=== PATIENT | female | born 1955 | race Caucasian/White ===

== ENCOUNTER 2017-08-03 19:35 | Inpatient (IN) | payer OTHER, MEDICARE ==
[~2017-08-03] VITALS: Ht 167.6 cm; Wt 123.4 kg
[~2017-08-03 19:35] MED LIST: AMLO5TAB96 PO; ASCO500C PO; ASPI325T PO; ATOR20TA42 PO; COZA100T PO; ERGO2000 PO; HUMULIN 70/30 SC; NOVORP2; PERC5TAB12 PO; TAB-TAB PO; TOPR25TA2 PO; [UNRECOGNIZED DRUG - CODE] XX
[2017-08-03 19:50] VITALS: O2SAT 94
[2017-08-03 20:06] VITALS: BP 151/70; PULSE 107; RESP 16; TEMP 98.4; O2SAT 94
[2017-08-03 20:25] LABS: AUTOMATED NEUTROPHIL # 8.6 TH/MM3 (1.8-7.7); BASOPHIL # 0.1 TH/MM3 (0-0.2); EOSINOPHIL # 0.2 TH/MM3 (0-0.4); EOSINOPHIL % 1.7 % (0.0-4.0); HEMATOCRIT 28.3 % (35.0-46.0); HEMOGLOBIN 8.9 GM/DL (11.6-15.3); LYMPH % 12.5 % (9.0-44.0); LYMPHOCYTE # 1.4 TH/MM3 (1.0-4.8); MEAN CELL VOLUME 81.6 FL (80.0-100.0); MEAN CORPUSCULAR HEMOGLOBIN 25.8 PG (27.0-34.0); MEAN CORPUSCULAR HGB CONC 31.6 % (32.0-36.0); MEAN PLATELET VOLUME 7.2 FL (7.0-11.0); MONO % 10.5 % (0.0-8.0); MONOCYTE # 1.2 TH/MM3 (0-0.9); NEUT % 74.3 % (16.0-70.0); PLATELET COUNT 417 TH/MM3 (150-450); RED BLOOD COUNT 3.47 MIL/MM3 (4.00-5.30); RED CELL DISTRIBUTION WIDTH 18.1 % (11.6-17.2); WHITE BLOOD COUNT 11.5 TH/MM3 (4.0-11.0)
[2017-08-03] MEDS ORDERED: SODIUM CHLOR 0.9% 1000 ML INJ 1,000 ML IV SCH (20:27)
[2017-08-03 20:37] LABS: ALBUMIN 2.1 GM/DL (3.4-5.0); AST (GOT) 21 U/L (15-37); BICARBONATE 28.8 MEQ/L (21.0-32.0); BLOOD UREA NITROGEN 38 MG/DL (7-18); CALCIUM 8.9 MG/DL (8.5-10.1); CHLORIDE 94 MEQ/L (98-107); CREATININE 1.92 MG/DL (0.50-1.00); GLOMERULAR FILTRATION RATE 26 ML/MIN (>89); GLUCOSE,RANDOM 219 MG/DL (74-106); LIPASE 77 U/L (73-393); MAGNESIUM 2.4 MG/DL (1.5-2.5); SODIUM (NA) 131 MEQ/L (136-145)
[2017-08-03 20:38] LABS: ALT (GPT) 22 U/L (10-53)
[2017-08-03 20:40] LABS: LACTIC ACID SEPSIS PROTOCOL 2.1 mmol/L (0.4-2.0); PROTHROMBIN TIME - PATIENT 11.4 SEC (9.8-11.6)
[2017-08-03 20:42] LABS: ALKALINE PHOSPHATASE 136 U/L (45-117); TOTAL BILIRUBIN ADULT 0.5 MG/DL (0.2-1.0); TOTAL PROTEIN 7.5 GM/DL (6.4-8.2); TROPONIN I LESS THAN 0.02 NG/ML (0.02-0.05)
--- NOTE | 2017-08-03 20:49 | RADRPT ---
EXAM DATE/TIME: 08/03/2017 20:00 [facility] COMPARISON: No previous studies available for comparison. INDICATIONS : Trauma, fall. Bruising to right eye. RADIATION DOSE: 56.35 CTDIvol (mGy) MEDICAL HISTORY : Hypertension. CAD. Diabetes. SURGICAL HISTORY : CABG Tubal ligation.Cholecystectomy.C-spine surgery. ENCOUNTER: Initial ACUITY: 1 day PAIN SCALE: 4/10 LOCATION: cranial TECHNIQUE: Multiple contiguous axial images were obtained of the head. Using automated exposure control and adj ustment of the mA and/or kV according to patient size, radiation dose was kept as low as reasonably a chievable to obtain optimal diagnostic quality images. DICOM format image data is available electro nically for review and comparison. FINDINGS: Frontal scalp swelling. No intracranial hemorrhage or mass effect a remote lacunar infarct right fron cheryl region. No acute bony abnormality. CONCLUSION: 1. Right frontal scalp swelling. No acute intracranial abnormality. Remote lacunar infarct on the rig ht. Manuel Carmichael MD on August 03, 2017 at 20:47 Board Certified Radiologist. This report was verified electronically.
[2017-08-03 21:00] VITALS: BP 143/61; PULSE 105; RESP 16; O2SAT 91
--- NOTE | 2017-08-03 21:07 | RADRPT ---
EXAM DATE/TIME: 08/03/2017 21:11 [facility] COMPARISON: No previous studies available for comparison. INDICATIONS : Fever. MEDICAL HISTORY : Hypertension. Diabetes mellitus type II. CAD SURGICAL HISTORY : CABG. Tubal ligation. Cholecystectomy. ENCOUNTER: Initial ACUITY: 1 day PAIN SCORE: 0/10 LOCATION: Bilateral chest FINDINGS: A single view of the chest demonstrates a left PICC line superior vena cava. Previous median sternoto my. Minimal basilar atelectasis. No effusion. No pneumothorax. CONCLUSION: 1. Left PICC line superior vena cava. Minimal subsegmental basilar opacity most characteristic of ate lectasis. Manuel Carmichael MD on August 03, 2017 at 21:03 Board Certified Radiologist. This report was verified electronically.
--- NOTE | 2017-08-03 21:43 | PD ---
HPI Chief Complaint: Altered Mental Status Time Seen by Provider: 19:48 Travel History International Travel<30 days: No Contact w/Intl Traveler<30days: No Traveled to known affect area: No History of Present Illness HPI 62-year-old female that presents to the ED for evaluation of altered mental status. Patient was brought here by ambulance for evaluation of this. Patient has a history of infection to both lower legs. Patient was sent to rehabilitation facility to get IV antibiotics as well as to do wound care. Since Friday per report from the ambulance as well as rehabilitation facility she's been somewhat altered. She does have a history of psychiatric illness and per rehabilitation she had an ultrasound that was negative for blood clots. She has become somewhat aggressive towards staff and confused. She has been receiving her antibiotics for her wounds appear to not improved. She actually has gotten more swollen per report. She denies any chest pain or shortness of breath. She states having pain to her lower legs. She does have a history of CAD and fibromyalgia. Per patient her discomfort currently is 8 out of 10. She tells me that she was initially seen at [facility] in [facility]. She was sent to rehabilitation after being discharged. She cannot really tell me how long she was at the hospital. She tells me that she's been in the rehabilitation for about a week now. Patient herself appears to be alert and oriented 4 and does appear to answer questions appropriately. She does have a history of MRSA to the wounds for which she is getting vancomycin through a PICC line that she has on the left arm. Per report from the rehabilitation facility she's had fevers as high as 104 PFSH Past Medical History High Cholesterol: Yes Chest Pain: Yes Coronary Artery Disease: Yes Diabetes: Yes Patient Takes Glucophage: No Hypertension: Yes Musculoskeletal: Yes (CHRONIC BACK PAIN) Tetanus Vaccination: Unknown Influenza Vaccination: No Menopausal: Yes Tubal Ligation: Yes Past Surgical History Cholecystectomy: Yes Coronary Artery Bypass Graft: Yes Social History Alcohol Use: No Tobacco Use: No Substance Use: No Allergies-Medications (Allergen,Severity, Reaction): Coded Allergies: Sulfa (Sulfonamide Antibiotics) (Unverified Allergy, Severe, Hives, ) ciprofloxacin (Unverified Allergy, Severe, Nausea/Vomiting, 08/03/17) vancomycin (Unverified Allergy, Severe, Hives, 08/03/17) Reported Meds & Prescriptions Reported Meds & Active Scripts Active Reported Zinc Sulfate Pow 1 XX Vitamin D2 (Ergocalciferol) 2,000 Unit Tab 2,000 Unit PO Vitamin C (Ascorbic Acid) 500 Mg Cap 500 Mg PO Multivitamin (Multivitamins) 1 Tab Tab 1 Tab PO DAILY Novolin R 100 Units/Ml (Insulin Human Regular) 100 Units/Ml Inj 1,000 Units .XX Percocet (Oxycodone/Acetaminophen) 5 Mg/325 Mg Tab 1 Tab PO Q4HPRN Cozaar (Losartan Potassium) 100 Mg Tab 100 Mg PO DAILY [Humulin 70/30] 90 SC BIDAC Toprol Xl (Metoprolol Succinate) 25 Mg Tabcr 25 Mg PO BID Lipitor (Atorvastatin Calcium) 20 Mg Tab 20 Mg PO HS Aspirin 325 Mg Tab 325 Mg PO DAILY Norvasc (Amlodipine Besylate) 5 Mg Tab 5 Mg PO DAILY Review of Systems Except as stated in HPI: all other systems reviewed are Neg Physical Exam Narrative GENERAL: SKIN: Warm and dry. HEAD: Atraumatic. Normocephalic. EYES: Pupils equal and round. No scleral icterus. No injection or drainage. ENT: No nasal bleeding or discharge. Mucous membranes pink and moist. Tongue is midline. No uvula deviation. NECK: Trachea midline. No JVD. CARDIOVASCULAR: Regular rate and rhythm. No murmurs, S3, S4. RESPIRATORY: No accessory muscle use. Clear to auscultation. Breath sounds equal bilaterally. GASTROINTESTINAL: Abdomen soft, non-tender, nondistended. Hepatic and splenic margins not palpable. MUSCULOSKELETAL: Extremities without clubbing, cyanosis, or edema. No obvious deformities. Full range of motion of the upper and lower extremities bilaterally. 2+ pulses bilaterally. She does 2+ pitting edema bilaterally. Patient has erythema noted on both lower legs. Patient does have wants to the right anterior mid tib-fib film with some purulence coming out of it as well as another one on the dorsal aspect of the left foot. Patient does have some blistering some of the fingers. He does appear to have good capillary refill. Very warm to touch in the legs. No obvious lymphadenopathy noted. NEUROLOGICAL: Awake and alert. No obvious cranial nerve deficits. Motor grossly within normal limits. Five out of 5 muscle strength in the arms and legs. Normal speech. PSYCHIATRIC: Appropriate mood and affect; insight and judgment normal. Data Data Last Documented VS Vital Signs Date Time Temp Pulse Resp B/P (MAP) Pulse Ox O2 Delivery O2 Flow Rate FiO2 08/03/17 21:00 105 16 143/61 (88) 91 Room Air 08/03/17 20:06 98.4 Orders Orders Electrocardiogram (08/03/17 19:48) Complete Blood Count With Diff (08/03/17 19:48) Comprehensive Metabolic Panel (08/03/17 19:48) Ckmb (Isoenzyme) Profile (08/03/17 19:48) Troponin I (08/03/17 19:48) Prothrombin Time / Inr (Pt) (08/03/17 19:48) Act Partial Throm Time (Ptt) (08/03/17 19:48) Blood Culture (08/03/17:48) Lipase (08/03/17 19:48) Urinalysis - C+S If Indicated (08/03/17 19:48) Cath For Specimen (08/03/17 19:48) Magnesium (Mg) (08/03/17 19:48) Chest, Single Ap (08/03/17 19:48) Ct Brain W/O Iv Contrast(Rout) (08/03/17 19:48) Iv Access Insert/Monitor (08/03/17 19:48) Ecg Monitoring (08/03/17 19:48) Oximetry (08/03/17 19:48) Lactic Acid Sepsis Protocol (08/03/17 20:03) Ammonia (08/03/17 20:03) Sodium Chlor 0.9% 1000 Ml Inj (Ns 1000 M (08/03/17 20:27) Admit Order (Ed Use Only) (08/03/17 22:32) Labs Laboratory Tests Test 08/03/17 20:00 White Blood Count 11.5 TH/MM3 Red Blood Count 3.47 MIL/MM3 Hemoglobin 8.9 GM/DL Hematocrit 28.3 % Mean Corpuscular Volume 81.6 FL Mean Corpuscular Hemoglobin 25.8 PG Mean Corpuscular Hemoglobin Concent 31.6 % Red Cell Distribution Width 18.1 % Platelet Count 417 TH/MM3 Mean Platelet Volume 7.2 FL Neutrophils (%) (Auto) 74.3 % Lymphocytes (%) (Auto) 12.5 % Monocytes (%) (Auto) 10.5 % Eosinophils (%) (Auto) 1.7 % Basophils (%) (Auto) 1.0 % Neutrophils # (Auto) 8.6 TH/MM3 Lymphocytes # (Auto) 1.4 TH/MM3 Monocytes # (Auto) 1.2 TH/MM3 Eosinophils # (Auto) 0.2 TH/MM3 Basophils # (Auto) 0.1 TH/MM3 CBC Comment DIFF FINAL Differential Comment Prothrombin Time 11.4 SEC Prothromb Time International Ratio 1.0 RATIO Activated Partial Thromboplast Time 32.7 SEC Blood Urea Nitrogen 38 MG/DL Creatinine 1.92 MG/DL Random Glucose 219 MG/DL Total Protein 7.5 GM/DL Albumin 2.1 GM/DL Calcium Level 8.9 MG/DL Magnesium Level 2.4 MG/DL Alkaline Phosphatase 136 U/L Aspartate Amino Transf (AST/SGOT) 21 U/L Alanine Aminotransferase (ALT/SGPT) 22 U/L Total Bilirubin 0.5 MG/DL Sodium Level 131 MEQ/L Potassium Level 4.6 MEQ/L Chloride Level 94 MEQ/L Carbon Dioxide Level 28.8 MEQ/L Anion Gap 8 MEQ/L Estimat Glomerular Filtration Rate 26 ML/MIN Lactic Acid Level 2.1 mmol/L Ammonia 15 MCMOL/L Total Creatine Kinase 35 U/L Troponin I LESS THAN 0.02 NG/ML Lipase 77 U/L MDM Medical Decision Making Medical Screen Exam Complete: Yes Emergency Medical Condition: Yes Medical Record Reviewed: Yes Interpretation(s) CBC & BMP Diagram 08/03/17 20:00 Total Protein 7.5, Albumin 2.1 L, Calcium Level 8.9, Magnesium Level 2.4, Alkaline Phosphatase 136 H, Aspartate Amino Transf (AST/SGOT) 21, Alanine Aminotransferase (ALT/SGPT) 22, Total Bilirubin 0.[address] 08/03/171947 Signed Impressions: Service Date/Time: Thursday, August 03, 2017 20:00 - CONCLUSION: 1. Right frontal scalp swelling. No acute intracranial abnormality. Remote lacunar infarct on the right. Manuel Carmichael MD Chest X-Ray 08/03/171947 Signed Impressions: Service Date/Time: Thursday, August 03, 2017 21:11 - CONCLUSION: 1. Left PICC line superior vena cava. Minimal subsegmental basilar opacity most characteristic of atelectasis. Manuel Carmichael MD lactic acid of 2.1 Coags WNL Differential Diagnosis Sepsis versus cellulitis versus altered mental status versus worsening infection versus medication side effect Narrative Course 62-year-old female that presents to the ED for evaluation of altered mental status. Patient was properly examined and was found to have signs and symptoms concerning for sepsis. Patient does appear to be slightly confused but she does answer all questions appropriately. She is unable to tell me most of her history. She is somewhat unhappy with being here. She denies any other medical issues. She does have bruises to her right eye which per patient happened on Friday when she had a fall at the rehabilitation facility. She states that she had a scan of her head but there is no records on this. Rehabilitation facility did send some records that showed that she had an ultrasound that was negative for DVTs. I have asked to get records from the hospital admission. Labs and imaging were ordered. Labs and imaging showed WBC count, lactic acid elevation and possible acute on chronic kidney injury. Patient still somewhat confused. She does appear to be tachycardic. I spoke with my attending Dr. Pak who was made aware of all findings and recommends admission. This was told to Dr. Manrique who agrees to admission. Unfortunately at the time of admission I don't have any of the records from the previous hospitalization from a different hospital. Sepsis Criteria SIRS Criteria (2 or more): Heart rate over 90, WBC > 53239, < 4000 or > 10% bands Sepsis Criteria (SIRS+source): Infect source susp/known Diagnosis Primary Impression: Altered mental status Qualified Codes: R41.82 - Altered mental status, unspecified Additional Impressions: Cellulitis Qualified Codes: L03.119 - Cellulitis of unspecified part of limb MRSA (methicillin resistant staph aureus) culture positive Acute kidney injury Admitting Information Admitting Physician Requests: Observation Abundio Klein Aug 03, 2017 21:43
--- NOTE | 2017-08-03 22:36 | HHI.HP ---
[facility] Unknown Admission Diagnosis altered mental status, leg cellulitis, failing treatment? Diagnoses: (1) Encephalopathy Diagnosis: Principal (2) Wound infection Diagnosis: Principal (3) SAQIB (acute kidney injury) Diagnosis: Principal (4) Lactic acidosis Diagnosis: Principal (5) Anemia Diagnosis: Principal (6) DM (diabetes mellitus) Diagnosis: Principal Travel History International Travel<30 Days: No Contact w/Intl Traveler <30 Da: No Traveled to Known Affected Are: No History of Present Illness This is a 62-year-old female with a PMH of HTN, Hyperlipidemia, Chronic Back Pain, CAD and DM who was sent to the ER from SNF secondary to AMS and lateral lower extremity wounds. Per report, patient with recent admission to for bilateral lower extremity wounds, +MRSA wound cultures, on Vanc IV qdaily via PICC line, records from pending. Was d/c'd to Rehab and sent to ER today secondary to increasing confusion and aggressive behavior towards staff. No reported fever or chills. Has been receiving IV Abx as scheduled per report. On arrival, BP 151/70, HR 107, O2 sat 94% on RA, Afebrile. WBC 11.5. Hemoglobin 8.9, previous 11.6 on 08/09/12. INR 1.0. UA with moderate LE, bacteriuria. CT Head with right frontal scalp swelling, no acute finding, remote lacunar infarct on the right. CXR with left PICC line. Vena cava, atelectasis. Review of Systems Except as stated in HPI: all other systems reviewed are Neg ROS: 14 point review of systems otherwise negative. Past Family Social History Past Medical History PMH: HTN, Hyperlipidemia, Chronic Back Pain, CAD and DM Past Surgical History PAST SURGICAL HISTORY: Cholecystectomy, CABG Allergies: Coded Allergies: Sulfa (Sulfonamide Antibiotics) (Unverified Allergy, Severe, Hives, ) ciprofloxacin (Unverified Allergy, Severe, Nausea/Vomiting, 08/03/17) vancomycin (Unverified Allergy, Severe, Hives, 08/03/17) Family History PAST FAMILY HISTORY: Reviewed. No h/o DM or CAD Social History PAST SOCIAL HISTORY: Negative for alcohol, tobacco or drugs. Physical Exam Vital Signs Vital Signs Date Time Temp Pulse Resp B/P (MAP) Pulse Ox O2 Delivery O2 Flow Rate FiO2 08/03/17 21:00 105 16 143/61 (88) 91 Room Air 08/03/17 20:06 98.4 107 16 151/70 (97) 94 08/03/17 19:50 94 Room Air Physical Exam PE: GENERAL: Middle-aged white female in no acute distress, confused. HEENT: PERRLA, EOMI. No scleral icterus or conjunctival pallor. No lid lag or facial droop. CARDIOVASCULAR: Regular rate and rhythm. No obvious murmurs to auscultation. No chest tenderness to palpation. RESPIRATORY: No obvious rhonchi or wheezing. Clear to auscultation. Breath sounds equal bilaterally. GASTROINTESTINAL: Abdomen soft, non-tender, nondistended. BS normal. MUSCULOSKELETAL: Extremities without clubbing, cyanosis. 2+ pitting edema bilaterally. No obvious deformities. Bilateral LE wound w/ surrounding erythema. NEUROLOGICAL: Awake, alert. No focal neurologic deficits. Moving both upper and lower extremities spontaneously. Laboratory Laboratory Tests Test 08/03/17 20:00 White Blood Count 11.5 Red Blood Count 3.47 Hemoglobin 8.9 Hematocrit 28.3 Mean Corpuscular Volume 81.6 Mean Corpuscular Hemoglobin 25.8 Mean Corpuscular Hemoglobin Concent 31.6 Red Cell Distribution Width 18.1 Platelet Count 417 Mean Platelet Volume 7.2 Neutrophils (%) (Auto) 74.3 Lymphocytes (%) (Auto) 12.5 Monocytes (%) (Auto) 10.5 Eosinophils (%) (Auto) 1.7 Basophils (%) (Auto) 1.0 Neutrophils # (Auto) 8.6 Lymphocytes # (Auto) 1.4 Monocytes # (Auto) 1.2 Eosinophils # (Auto) 0.2 Basophils # (Auto) 0.1 CBC Comment DIFF FINAL Differential Comment Prothrombin Time 11.4 Prothromb Time International Ratio 1.0 Activated Partial Thromboplast Time 32.7 Blood Urea Nitrogen 38 Creatinine 1.92 Random Glucose 219 Total Protein 7.5 Albumin 2.1 Calcium Level 8.9 Magnesium Level 2.4 Alkaline Phosphatase 136 Aspartate Amino Transf (AST/SGOT) 21 Alanine Aminotransferase (ALT/SGPT) 22 Total Bilirubin 0.5 Sodium Level 131 Potassium Level 4.6 Chloride Level 94 Carbon Dioxide Level 28.8 Anion Gap 8 Estimat Glomerular Filtration Rate 26 Lactic Acid Level 2.1 Ammonia 15 Total Creatine Kinase 35 Troponin I LESS THAN 0.02 Lipase 77 Date/Time Source Procedure Growth Status 08/03/17 20:40 Blood Peripheral Aerobic Blood Culture Pending Received 08/03/17 20:40 Blood Peripheral Anaerobic Blood Culture Pending Received Result Diagram: 08/03/17199908/03/171999 Caprini VTE Risk Assessment Caprini VTE Risk Assessment: Mod/High Risk (score >= 2) Caprini Risk Assessment Model Point Value = 1 Point Value = 2 Point Value = 3 Point Value = 5 Age 41-60 Minor surgery BMI > 25 kg/m2 Swollen legs Varicose veins or History of unexplained or recurrent spontaneous Oral contraceptives or hormone replacement Sepsis (< 1 month) Serious lung disease, including pneumonia (< 1 month) Abnormal pulmonary function Acute myocardial infarction Congestive heart failure (< 1 month) History of inflammatory bowel disease Medical patient at bed rest Age 61-74 Arthroscopic surgery Major open surgery (> 45 min) Laparoscopic surgery (> 45 min) Malignancy Confined to bed (> 72 hours) Immobilizing plaster cast Central venous access Age >= 75 History of VTE Family history of VTE Factor V Leiden Prothrombin [id number] Lupus anticoagulant Anticardiolipin antibodies Elevated serum homocysteine Heparin-induced thrombocytopenia Other congenital or acquired thrombophilia Stroke (< 1 month) Elective arthroplasty Hip, pelvis, or leg fracture Acute spinal cord injury (< 1 month) Prophylaxis Regimen Total Risk Factor Score Risk Level Prophylaxis Regimen 0-1 Low Early ambulation 2 Moderate Order ONE of the following: *Sequential Compression Device (SCD) *Heparin 5000 units SQ BID 3-4 Higher Order ONE of the following medications: *Heparin 5000 units SQ TID *Enoxaparin/Lovenox 40 mg SQ daily (WT < 150 kg, CrCl > 30 mL/min) *Enoxaparin/Lovenox 30 mg SQ daily (WT < 150 kg, CrCl > 10-29 mL/min) *Enoxaparin/Lovenox 30 mg SQ BID (WT < 150 kg, CrCl > 30 mL/min) AND/OR *Sequential Compression Device (SCD) 5 or more Highest Order ONE of the following medications: *Heparin 5000 units SQ TID (Preferred with Epidurals) *Enoxaparin/Lovenox 40 mg SQ daily (WT < 150 kg, CrCl > 30 mL/min) *Enoxaparin/Lovenox 30 mg SQ daily (WT < 150 kg, CrCl > 10-29 mL/min) *Enoxaparin/Lovenox 30 mg SQ BID (WT < 150 kg, CrCl > 30 mL/min) AND *Sequential Compression Device (SCD) Assessment and Plan Problem List: (1) Encephalopathy ICD Code: G93.40 - Encephalopathy, unspecified (2) Wound infection ICD Code: T14.8XXA - Other injury of unspecified body region, initial encounter ; L08.9 - Local infection of the skin and subcutaneous tissue, unspecified (3) SAQIB (acute kidney injury) ICD Code: N17.9 - Acute kidney failure, unspecified (4) Lactic acidosis ICD Code: E87.2 - Acidosis (5) Anemia ICD Code: D64.9 - Anemia, unspecified (6) DM (diabetes mellitus) ICD Code: E11.9 - Type 2 diabetes mellitus without complications Assessment and Plan A/P: 1. Encephalopathy: per report, pt w/ increasing confusion/agitation while at Rehab, awake and alert but +confusion on exam, waxes/wanes. CT Head w/ no acute findings, remote lacunar infarct, images reviewed by me. Neuro checks q4h. U/a w/ mild bacteriuria, will start on empiric treatment. 2. Wound Infection: Bilateral LE infection, currently on Vanc IV via PICC, CXR w/ PICC in good position, images reviewed by me. Continue w/ IV Vanc, consult Pharmacy for dosing. 3. SAQIB: Creatinine 1.19, produces 0.75 on 08/09/12, no recent labs for comparison. UA with mild UTI, will treat empirically as above. IVF for hydration, repeat labs in am. 4. Lactic Acidosis: Lactic Acid 2.1, no evidence of sepsis. Continue IVF and repeat Lactic Acid in a.m. 5. Anemia: Hemoglobin 8.9, previously 11.6 on 08/09/12, no recent labs for comparison. Will monitor. No obvious bleeding at this time. 6. DM: Sliding scale with Accu-Cheks. Resume home medications. 7. DVT Prophylaxis: Heparin sq 8. Social work for d/c planning as needed. 9. Case discussed w/ ER physician at length. Nancy Manrique MD Aug 03, 2017 22:36
[2017-08-03] MEDS ORDERED: Vancomycin Consult Pharmacy 1 EA OTHER SCH (22:45)
[2017-08-03] MEDS ORDERED: ACETAMINOPHEN/HYDROcodone 325 MG/5 MG TAB PO PRN (22:45)
[2017-08-03] MEDS ORDERED: LACTULOSE SYRUP 20 GM/30 ML CUP PO PRN (22:45)
[2017-08-03] MEDS ORDERED: SODIUM CHLORIDE 0.9% FLUSH 10 ML FLUSH IV FLUSH PRN (22:45)
[2017-08-03] MEDS ORDERED: ONDANSETRON HCL 4 MG/2 ML VIAL IVP PRN (22:45)
[2017-08-03] MEDS ORDERED: MAGNESIUM HYDROXIDE SUSP 30 ML CUP PO PRN (22:45)
[2017-08-03] MEDS ORDERED: SENNOSIDES 8.6 MG TAB PO PRN (22:45)
[2017-08-03] MEDS ORDERED: BISACODYL 10 MG SUPP RECTAL PRN (22:45)
[2017-08-03] MEDS ORDERED: ACETAMINOPHEN 325 MG TAB PO PRN (22:45)
[2017-08-03 23:19] LABS: AMORPHOUS SEDIMENT, URINE RARE; BILIRUBIN, URINE NEG (NEG); BLOOD, URINE TRACE (NEG); GLUCOSE,URINE NEG (NEG); KETONE, URINE NEG (NEG); MUCUS URINE FEW /lpf (OCC); NITRITE,URINE NEG (NEG); PH, URINE 6.5 (5.0-8.5); SQUAMOUS EPITHELIAL CELL URINE 3 /hpf (0-5); URINE COLOR YELLOW (YELLW/STRAW); URINE LEUKOCYTE ESTERASE MOD (NEG)
[2017-08-03 23:56] VITALS: BP 166/90; PULSE 112; RESP 20; TEMP 97.9; O2SAT 92
[2017-08-04] MEDS: SODIUM CHLOR 0.9% 1000 ML INJ 1,000 ML IV SCH ×3 (00:16→21:00)
[2017-08-04] MEDS ORDERED: GLUCAGON 1 MG/ML VIAL OTHER PRN (00:45)
[2017-08-04] MEDS ORDERED: DEXTROSE 50% IN WATER 50 ML VIAL(D50) IV PUSH PRN (00:45)
[2017-08-04] MEDS: cefTRIAXone INJ 1,000 MG in SODIUM CHLORIDE 0.9% INJ 100 ML IV SCH (01:21)
[2017-08-04 03:22] VITALS: BP 143/74; PULSE 103; RESP 18; TEMP 98.4; O2SAT 97
[2017-08-04 06:14] LABS: AUTOMATED NEUTROPHIL # 7.2 TH/MM3 (1.8-7.7); BASOPHIL # 0.1 TH/MM3 (0-0.2); BASOPHIL % 0.8 % (0.0-2.0); EOSINOPHIL # 0.2 TH/MM3 (0-0.4); EOSINOPHIL % 1.9 % (0.0-4.0); HEMATOCRIT 26.8 % (35.0-46.0); HEMOGLOBIN 8.6 GM/DL (11.6-15.3); LYMPH % 11.5 % (9.0-44.0); LYMPHOCYTE # 1.1 TH/MM3 (1.0-4.8); MEAN CELL VOLUME 81.9 FL (80.0-100.0); MEAN CORPUSCULAR HEMOGLOBIN 26.3 PG (27.0-34.0); MEAN CORPUSCULAR HGB CONC 32.1 % (32.0-36.0); MEAN PLATELET VOLUME 7.1 FL (7.0-11.0); MONO % 11.3 % (0.0-8.0); MONOCYTE # 1.1 TH/MM3 (0-0.9); NEUT % 74.5 % (16.0-70.0); PLATELET COUNT 379 TH/MM3 (150-450); RED BLOOD COUNT 3.28 MIL/MM3 (4.00-5.30); RED CELL DISTRIBUTION WIDTH 17.9 % (11.6-17.2); WHITE BLOOD COUNT 9.7 TH/MM3 (4.0-11.0)
[2017-08-04 06:50] LABS: ALBUMIN 1.9 GM/DL (3.4-5.0); ALT (GPT) 22 U/L (10-53); AST (GOT) 15 U/L (15-37); BLOOD UREA NITROGEN 34 MG/DL (7-18); CALCIUM 8.4 MG/DL (8.5-10.1); CHLORIDE 99 MEQ/L (98-107); CREATININE 1.59 MG/DL (0.50-1.00); GLOMERULAR FILTRATION RATE 33 ML/MIN (>89); GLUCOSE,RANDOM 204 MG/DL (74-106); SODIUM (NA) 135 MEQ/L (136-145)
[2017-08-04] MEDS: ACETAMINOPHEN/HYDROcodone 325 MG/10 MG TAB PO PRN ×3 (06:51→21:13)
[2017-08-04 07:00] LABS: ALKALINE PHOSPHATASE 134 U/L (45-117); RANDOM VANCOMYCIN 25.8 COMMENT; TOTAL BILIRUBIN ADULT 0.4 MG/DL (0.2-1.0); TOTAL PROTEIN 7.2 GM/DL (6.4-8.2)
[2017-08-04 07:19] VITALS: BP 134/66; PULSE 108; RESP 18; TEMP 98.1; O2SAT 94
[2017-08-04] MEDS: INSULIN ASPART SUPPLEMENTAL SCALE SQ SCH ×4 (08:00→21:00)
[2017-08-04] MEDS: SODIUM CHLORIDE 0.9% FLUSH 10 ML FLUSH IV FLUSH SCH ×2 (09:00→20:49)
[2017-08-04] MEDS: DOCUSATE SODIUM 50 MG/SENNA 8.6 MG TAB PO SCH ×2 (09:00→20:49)
[2017-08-04] MEDS: HEPARIN SODIUM - SQ 10,000 UNITS/ML VIAL SQ SCH ×2 (09:27→20:49)
--- NOTE | 2017-08-04 09:35 | HHI.PR ---
Subjective Remarks Follow up for AMS, lower extremity wounds. The patient is currently awake, alert , oriented to person, month/year, and hospital in [place]; however is a very poor historian. She states yesterday she doesn't remember much. She feels better today. She continues to report subjective fevers/chills however no documented fevers. Denies any nausea/vomiting, diarrhea, abdominal pain, or urinary complaints. Objective Vitals Vital Signs Date Time Temp Pulse Resp B/P (MAP) Pulse Ox O2 Delivery O2 Flow Rate FiO2 08/04/17 07:19 98.1 108 18 134/66 (88) 94 08/04/17 03:22 98.4 103 18 143/74 (97) 97 08/03/17 23:56 97.9 112 20 166/90 (115) 92 08/03/17 23:50 08/03/17 21:00 105 16 143/61 (88) 91 Room Air 08/03/17 20:06 98.4 107 16 151/70 (97) 94 08/03/17 19:50 94 Room Air I/O 08/03/17 08/03/17 08/03/17 08/04/17 08/04/17 08/04/17 07:00 15:00 23:00 07:00 15:00 23:00 Intake Total 1000 ml 628 ml Output Total 2 ml Balance 1000 ml 626 ml Intake IV Total 1000 ml 628 ml Output Stool Total 2 ml # Voids 1 4 Result Diagram: 08/04/17 0601 08/04/17 0601 Imaging Last Impressions Head CT 08/03/171947 Signed Impressions: Service Date/Time: Thursday, August 03, 2017 20:00 - CONCLUSION: 1. Right frontal scalp swelling. No acute intracranial abnormality. Remote lacunar infarct on the right. Manuel Carmichael MD Chest X-Ray 08/03/171947 Signed Impressions: Service Date/Time: Thursday, August 03, 2017 21:11 - CONCLUSION: 1. Left PICC line superior vena cava. Minimal subsegmental basilar opacity most characteristic of atelectasis. Manuel Carmichael MD Objective Remarks GENERAL: Well-nourished, well-developed patient in NAD. SKIN: Warm and dry. No rash. HEENT: Normocephalic. Atraumatic. Pupils equal and round. Mucous membranes pink and moist. CARDIOVASCULAR: Regular rate and rhythm. S1, S2 noted. No murmur appreciated. RESPIRATORY: No accessory muscle use. Clear to auscultation. Breath sounds equal bilaterally. GASTROINTESTINAL: Abdomen soft, non-tender, nondistended. Normoactive bowel sounds x4. MUSCULOSKELETAL: No obvious deformities. 2+ BLE edema. BLE wrapped with dressing , CDI. NEUROLOGICAL: Awake and alert. No obvious cranial nerve deficits. Motor grossly within normal limits. Normal speech. PSYCHIATRIC: Appropriate mood and affect; insight and judgment limited. Medications and IVs Current Medications Medications (Trade) Dose Ordered Sig/Gloria Route Start Time Stop Time Status Last Admin Pharmacy Profile Note 0 ml @ 0 mls/hr UNSCH OTHER 08/03/17 22:45 Future hold Sodium Chloride 1,000 ml @ 100 mls/hr Q10H IV 08/03/17 23:00 08/04/17 00:16 (NS Flush) 2 ml UNSCH PRN IV FLUSH 08/03/17 22:45 (NS Flush) 2 ml BID IV FLUSH 08/04/17 09:00 (Zofran Inj) 4 mg Q6H PRN IVP 08/03/17 22:45 (Heparin Inj) 5,000 units Q12H SQ 08/04/17 09:00 (Tylenol) 650 mg Q6H PRN PO 08/03/17 22:45 ([place] 5-325 Mg) 1 tab Q4H PRN PO 08/03/17 22:45 ([place] 10-325 Mg) 1 tab Q4H PRN PO 08/03/17 22:45 08/04/17 06:51 (Jenn-Colace) 1 tab BID PO 08/04/17 09:00 (Milk Of Magnesia Liq) 30 ml Q12H PRN PO 08/03/17 22:45 (Senokot) 17.2 mg Q12H PRN PO 08/03/17 22:45 (Dulcolax Supp) 10 mg DAILY PRN RECTAL 08/03/17 22:45 (Lactulose Liq) 30 ml DAILY PRN PO 08/03/17 22:45 (D50w (Vial) Inj) 50 ml UNSCH PRN IV PUSH 08/04/17 00:45 (Glucagon Inj) 1 mg UNSCH PRN OTHER 08/04/17 00:45 (NovoLOG SUPPLEMENTAL SCALE) 1 ACHS SLIDING SCALE SQ 08/04/17 08:00 Ceftriaxone Sodium 1000 mg/ Sodium Chloride 100 ml @ 200 mls/hr Q24H IV 08/04/17 01:00 08/04/17 01:21 A/P Problem List: (1) Encephalopathy ICD Code: G93.40 - Encephalopathy, unspecified (2) Wound infection ICD Code: T14.8XXA - Other injury of unspecified body region, initial encounter ; L08.9 - Local infection of the skin and subcutaneous tissue, unspecified (3) SAQIB (acute kidney injury) ICD Code: N17.9 - Acute kidney failure, unspecified (4) Lactic acidosis ICD Code: E87.2 - Acidosis (5) Anemia ICD Code: D64.9 - Anemia, unspecified (6) DM (diabetes mellitus) ICD Code: E11.9 - Type 2 diabetes mellitus without complications Assessment and Plan 62-year-old female with a PMH of HTN, Hyperlipidemia, Chronic Back Pain, CAD and DM who was sent to the ER from SNF secondary to AMS and lateral lower extremity wounds. Acute Metabolic Encephalopathy: per report, pt w/ increasing confusion/ agitation while at Rehab, awake and alert but +confusion on exam, waxes/wanes. CT Head w/ no acute findings, remote lacunar infarct, images reviewed by me. Neuro checks q4h. U/a w/ mild bacteriuria, started on empiric treatment. Await cultures. Continue to monitor, appears to be improving. Wound Infection: Bilateral LE infection, currently on Vanc IV via PICC, CXR w/ PICC in good position, images reviewed by me. Continue w/ IV Vanc, consult Pharmacy for dosing. Consult wound care nurse. SAQIB: Creatinine 1.92, previously 0.75 on 08/09/12, no recent labs for comparison. UA with mild UTI, will treat empirically as above. Give IVF for hydration, repeat labs show improvement, Cr 1.59. Continue to monitor BMP. Lactic Acidosis: Lactic Acid 2.1, no evidence of sepsis. Continue IVF, Repeat Lactic Acid 1.0. Resolved. Anemia: Hemoglobin 8.9, previously 11.6 on 08/09/12, no recent labs for comparison. Will monitor. No obvious bleeding at this time. DM: Sliding scale with Accu-Cheks. Resume home medications. DVT Prophylaxis: Heparin sq Discharge Planning Possible discharge tomorrow if patient continues to improve. Negin Rodriguez PA-C Aug 04, 2017 9:35 am
--- NOTE | 2017-08-04 11:05 | EKG ---
Date Performed: 08/03/2017 Time Performed: 19:56:20 PTAGE: 62 years EKG: SINUS TACHYCARDIA ST DEVIATION AND MODERATE T-WAVE ABNORMALITY, CONSIDER LATERAL ISCHEMIA C ompared to previous tracing sinus rate is faster, lateral T wave changes are more prominent, consider ischemia ABNORMAL ECG PREVIOUS TRACING : 08/09/2012 00.17 DOCTOR: Jeancarlos Pearson Interpretating Date/Time 08/04/2017 11:05:01
[2017-08-04 11:11] VITALS: BP 156/79; PULSE 110; RESP 18; TEMP 98.9; O2SAT 93
[2017-08-04 19:19] VITALS: BP 137/61; PULSE 104; RESP 17; TEMP 98.5; O2SAT 90
[2017-08-04 23:08] VITALS: BP 119/64; PULSE 100; RESP 17; TEMP 98; O2SAT 92
[2017-08-05] VITALS (7 sets, daily range): BP systolic 120–175; BP diastolic 60–80; PULSE 87–99; RESP 15–21; TEMP 96.1–98.2; O2SAT 92–96
[2017-08-05] MEDS: cefTRIAXone INJ 1,000 MG in SODIUM CHLORIDE 0.9% INJ 100 ML IV SCH (00:58)
[2017-08-05] MEDS ORDERED: Vancomycin Consult Pharmacy 1 EA OTHER SCH (08:30)
--- NOTE | 2017-08-05 08:42 | HHI.PR ---
Subjective Remarks Follow up for AMS, BLE cellulitis/ulcers. The patient is not happy this morning. She states she's not doing well at all. She is oriented to self only. She states she wants to go home but cannot tell me where home is. She complains of her left foot ulcer "not getting any better". She states it's been getting treated by Dr. Goel but yet it hasn't gotten any better. She denies any other medical complaints including no fevers/chills/sweats, chest pain, shortness of breath, or abdominal complaints. Per RN, yesterday afternoon the patient refused to eat anything because she wanted to leave. Objective Vitals Vital Signs Date Time Temp Pulse Resp B/P (MAP) Pulse Ox O2 Delivery O2 Flow Rate FiO2 08/05/17 08:08 97.3 97 15 174/80 (111) 94 08/05/17 03:24 98.0 99 17 175/80 (111) 93 08/04/17 23:08 98.0 100 17 119/64 (82) 92 08/04/17 19:19 98.5 104 17 137/61 (86) 90 08/04/17 11:11 98.9 110 18 156/79 (104) 93 I/O 08/04/17 08/04/17 08/04/17 08/05/17 08/05/17 08/05/17 07:00 15:00 23:00 07:00 15:00 23:00 Intake Total 628 ml 200 ml 120 ml 100 ml Output Total 2 ml 200 ml Balance 626 ml 200 ml 120 ml -100 ml Intake Oral 120 ml 100 ml IV Total 628 ml 200 ml Output Urine Total 200 ml Stool Total 2 ml # Voids 4 1 Result Diagram: 08/04/17 0608/04/17600 Imaging Last Impressions Head CT 08/03/171947 Signed Impressions: Service Date/Time: Thursday, August 03, 2017 20:00 - CONCLUSION: 1. Right frontal scalp swelling. No acute intracranial abnormality. Remote lacunar infarct on the right. Manuel Carmichael MD Chest X-Ray 08/03/171947 Signed Impressions: Service Date/Time: Thursday, August 03, 2017 21:11 - CONCLUSION: 1. Left PICC line superior vena cava. Minimal subsegmental basilar opacity most characteristic of atelectasis. Manuel Carmichael MD Objective Remarks GENERAL: Well-nourished, well-developed obese female patient in NAD. SKIN: Warm and dry. No rash. HEENT: Normocephalic. Atraumatic. Pupils equal and round. Mucous membranes pink and moist. CARDIOVASCULAR: Regular rate and rhythm. S1, S2 noted. No murmur appreciated. RESPIRATORY: No accessory muscle use. Clear to auscultation. Breath sounds equal bilaterally. GASTROINTESTINAL: Abdomen soft, non-tender, nondistended. Normoactive bowel sounds x4. MUSCULOSKELETAL: Charcot deformity left foot. 2+ BLE edema and erythema from toes to distal knee. Large 6cm left heel ulcer with serosanguineous drainage, foul odor; also left dorsal foot wound, and right lateral plantar and right 2nd toe scab. NEUROLOGICAL: Awake and alert. No obvious cranial nerve deficits. Motor grossly within normal limits. Normal speech. PSYCHIATRIC: Slightly agitated mood today; insight and judgment limited. Medications and IVs Current Medications Medications (Trade) Dose Ordered Sig/Gloria Route Start Time Stop Time Status Last Admin Pharmacy Profile Note 0 ml @ 0 mls/hr UNSCH OTHER 08/03/17 22:45 Future hold Sodium Chloride 1,000 ml @ 100 mls/hr Q10H IV 08/03/17 23:00 08/04/17 21:00 (NS Flush) 2 ml UNSCH PRN IV FLUSH 08/03/17 22:45 (NS Flush) 2 ml BID IV FLUSH 08/04/17 09:00 08/04/17 20:49 (Zofran Inj) 4 mg Q6H PRN IVP 08/03/17 22:45 08/04/17 14:52 (Heparin Inj) 5,000 units Q12H SQ 08/04/17 09:00 08/04/17 20:49 (Tylenol) 650 mg Q6H PRN PO 08/03/17 22:45 ([place] 5-325 Mg) 1 tab Q4H PRN PO 08/03/17 22:45 ([place] 10-325 Mg) 1 tab Q4H PRN PO 08/03/17 22:45 08/04/17 21:13 (Jenn-Colace) 1 tab BID PO 08/04/17 09:00 (Milk Of Magnesia Liq) 30 ml Q12H PRN PO 08/03/17 22:45 (Senokot) 17.2 mg Q12H PRN PO 08/03/17 22:45 (Dulcolax Supp) 10 mg DAILY PRN RECTAL 08/03/17 22:45 (Lactulose Liq) 30 ml DAILY PRN PO 08/03/17 22:45 (D50w (Vial) Inj) 50 ml UNSCH PRN IV PUSH 08/04/17 00:45 (Glucagon Inj) 1 mg UNSCH PRN OTHER 08/04/17 00:45 (NovoLOG SUPPLEMENTAL SCALE) 1 ACHS SLIDING SCALE SQ 08/04/17 08:00 Ceftriaxone Sodium 1000 mg/ Sodium Chloride 100 ml @ 200 mls/hr Q24H IV 08/04/17 01:00 08/05/17 00:58 Pharmacy Profile Note 0 ml @ 0 mls/hr UNSCH OTHER 08/05/17 08:30 UNV A/P Problem List: (1) Encephalopathy ICD Code: G93.40 - Encephalopathy, unspecified Status: Acute (2) Wound infection ICD Code: T14.8XXA - Other injury of unspecified body region, initial encounter ; L08.9 - Local infection of the skin and subcutaneous tissue, unspecified Status: Acute (3) SAQIB (acute kidney injury) ICD Code: N17.9 - Acute kidney failure, unspecified (4) Lactic acidosis ICD Code: E87.2 - Acidosis (5) Anemia ICD Code: D64.9 - Anemia, unspecified (6) DM (diabetes mellitus) ICD Code: E11.9 - Type 2 diabetes mellitus without complications Status: Chronic Assessment and Plan 62-year-old female with a PMH of HTN, Hyperlipidemia, Chronic Back Pain, CAD and DM who was sent to the ER from SNF secondary to AMS and lateral lower extremity wounds. Acute Metabolic Encephalopathy: pt w/ increasing confusion/agitation while at Rehab, awake and alert but +confusion on exam, waxes/wanes. Suspect secondary to acute infection, sepsis, cellulitis, bacteremia. CT Head w/ no acute findings, remote lacunar infarct, images reviewed by me. Neuro checks q4h. Blood Cultures positive, see below. Continue to monitor, patient tends to wax and wane, slowly improving. Left Foot Diabetic Ulcer with Osteomyelitis: previously admitted to [facility], s /p debridement and wound vac, sent to SNF with PICC on IV Vanco. Presented to [facility] with worsening wound drainage/odor. CXR w/ PICC in good position, images reviewed by me. Continue w/ IV Vanc, consult Pharmacy for dosing. Consult podiatry and wound care. Consult infectious disease for assistance. Suspected Bacteremia: 10/16 preliminary blood cultures with gram negative rods. Possible source osteomyelitis vs PICC related infection (present on admission). Added IV Zosyn in addition to IV Vanco. Repeat blood cultures. Consulted infectious disease as above. SAQIB: Creatinine 1.92, previously 0.75 on 08/09/12, no recent labs for comparison. Give IVF for hydration, repeat labs show improvement, Cr 1.59. Continue to monitor BMP. Lactic Acidosis: Lactic Acid 2.1, with infection as above. Given IVF, Repeat Lactic Acid 1.0. Resolved. Anemia: Hemoglobin 8.9, previously 11.6 on 08/09/12, no recent labs for comparison. Will monitor. No obvious bleeding at this time. DM: Sliding scale with Accu-Cheks. Resume home medications. DVT Prophylaxis: Heparin sq Discharge Planning Discharge pending further clinical improvement. Not yet ready for discharge. Await podiatry and infectious disease consultation. Problem Qualifiers (1) DM (diabetes mellitus): Qualified Codes: E11.42 - Type 2 diabetes mellitus with diabetic polyneuropathy ; Z79.4 - assisted (current) use of insulin Negin Rodriguez PA-C Aug 05, 2017 08:42
[2017-08-05] MEDS: DOCUSATE SODIUM 50 MG/SENNA 8.6 MG TAB PO SCH ×2 (09:00→21:00)
[2017-08-05] MEDS: SODIUM CHLOR 0.9% 1000 ML INJ 1,000 ML IV SCH ×3 (10:17→21:27)
[2017-08-05] MEDS: SODIUM CHLORIDE 0.9% FLUSH 10 ML FLUSH IV FLUSH SCH ×2 (10:18→21:27)
[2017-08-05] MEDS: HEPARIN SODIUM - SQ 10,000 UNITS/ML VIAL SQ SCH ×2 (10:18→21:27)
[2017-08-05] MEDS: INSULIN ASPART SUPPLEMENTAL SCALE SQ SCH ×4 (10:18→21:00)
--- NOTE | 2017-08-05 12:04 | PD.WCN.NOT ---
Wound Consult Description: Consult placed for bilateral lower extremities per LUCIA Rodriguez Communicated with: LUCIA Rodriguez RN Patient Recommendation: Defer to Podiatry Additional Information: Patient seen in [facility] for bilateral lower extremities. Patient was sitting up in chair upon entering room. Sock removed from right foot, which had a rolled gauze dressing laying on top of it that was removed with the sock to visualize entire leg. There were no open areas noted to entire right leg. There are areas of dried exudate noted that were left open to air. The entire lower extremity of the right leg is noted to be bright red, tight, with hard cobblestone appearance and dry flaking skin. Sock was put back in place over right foot. Patient states that she wants podiatry to assess left foot that was just wrapped by RITA Cooper. It was explained to the patient that elevating the leg would help with the swelling that is noted from calf area to toes on left lower extremity. Alicia Lama [facility] Aug 05, 2017 12:04
[2017-08-05] MEDS: PIPERACIL-TAZO 4.5 GM PREMIX 100 ML IV SCH ×3 (12:10→23:50)
[2017-08-05 13:16] LABS: AUTOMATED NEUTROPHIL # 6.4 TH/MM3 (1.8-7.7); BASOPHIL # 0.1 TH/MM3 (0-0.2); BASOPHIL % 1.1 % (0.0-2.0); EOSINOPHIL # 0.2 TH/MM3 (0-0.4); EOSINOPHIL % 2.3 % (0.0-4.0); HEMOGLOBIN 8.3 GM/DL (11.6-15.3); LYMPHOCYTE # 1.2 TH/MM3 (1.0-4.8); MEAN CORPUSCULAR HEMOGLOBIN 26.1 PG (27.0-34.0); MEAN CORPUSCULAR HGB CONC 31.9 % (32.0-36.0); MEAN PLATELET VOLUME 7.5 FL (7.0-11.0); NEUT % 72.6 % (16.0-70.0); PLATELET COUNT 415 TH/MM3 (150-450); RED BLOOD COUNT 3.17 MIL/MM3 (4.00-5.30); WHITE BLOOD COUNT 8.8 TH/MM3 (4.0-11.0)
[2017-08-05] MEDS: ACETAMINOPHEN/HYDROcodone 325 MG/10 MG TAB PO PRN ×2 (13:23→18:37)
[2017-08-05 13:50] LABS: BICARBONATE 27.4 MEQ/L (21.0-32.0); CALCIUM 8.3 MG/DL (8.5-10.1); CREATININE 1.56 MG/DL (0.50-1.00); RANDOM VANCOMYCIN 10.7 COMMENT
--- NOTE | 2017-08-05 16:02 | PD.ID.CON ---
History of Present Illness Service ID Consult Requested By Dr. Manrique/Jessenia MYERS. Reason for Consult Evaluation and Mment of Left foot osteomyelitis, sepsis, GNR bacteremia. Primary Care Physician Unknown Diagnoses: History of Present Illness is a 62 y/o CF with PMH of HTN, Hyperlipidemia, Chronic Back Pain, CAD s/p CABG, PAD,PVD s.p rt foot angiogram and DM who was sent to the ER from SNF secondary to AMS and lateral lower extremity wounds. Per report, patient with recent admission to for bilateral lower extremity wounds, +MRSA wound cultures, on Vanc IV qdaily via PICC line, records from pending. Was d/c'd to Rehab and sent to ER today secondary to increasing confusion and aggressive behavior towards staff. No reported fever or chills. Has been receiving IV Abx as scheduled per report. On arrival, BP 151/70, HR 107, O2 sat 94% on RA, Afebrile. WBC 11.5. Hemoglobin 8.9, previous 11.6 on 08/09/12. INR 1.0. UA with moderate LE, bacteriuria. CT Head with right frontal scalp swelling, no acute finding, remote lacunar infarct on the right. CXR with left PICC line. Upon further questioning the and pt reported the following PAD, PVD s.p angiogram Left foot chronic osteomyelitis with worsening. Sees at [facility] for wound care. Sees Dr.Reba Francisco for ID needs in past. Sepsis workup on admission positive for GNR (CTX-M negative), ID consulted for sepsis, GNR bacteremia, Left foot osteomyelitis. Review of Systems ROS Limitations: Altered Mental Status, Poor Historian Past Family Social History Allergies: Coded Allergies: Sulfa (Sulfonamide Antibiotics) (Unverified Allergy, Severe, Hives, ) ciprofloxacin (Unverified Allergy, Severe, Nausea/Vomiting, 08/03/17) vancomycin (Unverified Allergy, Severe, Hives, 08/03/17) Past Medical History HTN Hyperlipidemia Chronic Back Pain CAD s/p CABG DM 2 uncontrolled Chronic non healing wound left foot. Left foot osteomyelitis. Past Surgical History Cholecystectomy CABG Cervical spine surgery Hip surgery Left foot bone scraping in Jul 2017. 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 Reported Medications I attest I reviewed, obtained, or updated pts home meds and current meds for name, dose, freq and route of administration. Reported Meds & Active Scripts Active Reported Zinc Sulfate Pow 1 XX Vitamin D2 (Ergocalciferol) 2,000 Unit Tab 2,000 Unit PO Vitamin C (Ascorbic Acid) 500 Mg Cap 500 Mg PO Multivitamin (Multivitamins) 1 Tab Tab 1 Tab PO DAILY Novolin R 100 Units/Ml (Insulin Human Regular) 100 Units/Ml Inj 1,000 Units .XX Percocet (Oxycodone/Acetaminophen) 5 Mg/325 Mg Tab 1 Tab PO Q4HPRN Cozaar (Losartan Potassium) 100 Mg Tab 100 Mg PO DAILY [Humulin 70/30] 90 SC BIDAC Toprol Xl (Metoprolol Succinate) 25 Mg Tabcr 25 Mg PO BID Lipitor (Atorvastatin Calcium) 20 Mg Tab 20 Mg PO HS Aspirin 325 Mg Tab 325 Mg PO DAILY Norvasc (Amlodipine Besylate) 5 Mg Tab 5 Mg PO DAILY Vanco IV dose adjusted for target trough 15-20. Active Ordered Medications Current Medications Medications (Trade) Dose Ordered Sig/Gloria Route Start Time Stop Time Status Last Admin Sodium Chloride 1,000 ml @ 100 mls/hr Q10H IV 08/03/17 23:00 08/05/17 10:17 (NS Flush) 2 ml UNSCH PRN IV FLUSH 08/03/17 22:45 (NS Flush) 2 ml BID IV FLUSH 08/04/17 09:00 08/05/17 10:18 (Zofran Inj) 4 mg Q6H PRN IVP 08/03/17 22:45 08/04/17 14:52 (Heparin Inj) 5,000 units Q12H SQ 08/04/17 09:00 08/05/17 10:18 (Tylenol) 650 mg Q6H PRN PO 08/03/17 22:45 ([place] 5-325 Mg) 1 tab Q4H PRN PO 08/03/17 22:45 ([place] 10-325 Mg) 1 tab Q4H PRN PO 08/03/17 22:45 08/05/17 13:23 (Jenn-Colace) 1 tab BID PO 08/04/17 09:00 (Milk Of Magnesia Liq) 30 ml Q12H PRN PO 08/03/17 22:45 (Senokot) 17.2 mg Q12H PRN PO 08/03/17 22:45 (Dulcolax Supp) 10 mg DAILY PRN RECTAL 08/03/17 22:45 (Lactulose Liq) 30 ml DAILY PRN PO 08/03/17 22:45 (D50w (Vial) Inj) 50 ml UNSCH PRN IV PUSH 08/04/17 00:45 (Glucagon Inj) 1 mg UNSCH PRN OTHER 08/04/17 00:45 (NovoLOG SUPPLEMENTAL SCALE) 1 ACHS SLIDING SCALE SQ 08/04/17 08:00 08/05/17 13:21 Pharmacy Profile Note 0 ml @ 0 mls/hr UNSCH OTHER 08/05/17 08:30 Piperacillin Sod/ Tazobactam Sod 100 ml @ 200 mls/hr Q6HR IV 08/05/17 12:00 08/05/17 12:10 Vancomycin HCl 1250 mg/Sodium Chloride 262.5 ml @ 250 mls/hr Q24H IV 08/05/17 15:00 Miscellaneous Information SPECIFIC LAB TO BE DRAWN:VANCO TROUGH DATE TO BE DR... ONCE ONCE .XX 08/07/17 14:45 08/07/17 14:46 Family History No h/o DM or CAD. Social History Negative for alcohol, tobacco or drugs. Lives with . Physical Exam Vital Signs Vital Signs Date Time Temp Pulse Resp B/P (MAP) Pulse Ox O2 Delivery O2 Flow Rate FiO2 08/05/17 12:03 98.2 93 21 160/80 (106) 94 08/05/17 08:08 97.3 97 15 174/80 (111) 94 08/05/17 03:24 98.0 99 17 175/80 (111) 93 08/04/17 23:08 98.0 100 17 119/64 (82) 92 08/04/17 19:19 98.5 104 17 137/61 (86) 90 Physical Exam GENERAL: This is a well-nourished, well-developed patient, in no apparent distress. SKIN: No rashes, ecchymoses or lesions. Cool and dry. HEAD: Atraumatic. Normocephalic. No temporal or scalp tenderness. EYES: Pupils equal round and reactive. Extraocular motions intact. No scleral icterus. No injection or drainage. ENT: Nose without bleeding, purulent drainage or septal hematoma. Throat without erythema, tonsillar hypertrophy or exudate. Uvula midline. Airway patent. NECK: Trachea midline. Supple, nontender, no meningeal signs. CARDIOVASCULAR: Regular rate and rhythm without murmurs, gallops, or rubs. RESPIRATORY: Clear to auscultation. Breath sounds equal bilaterally. No wheezes , rales, or rhonchi. GASTROINTESTINAL: Abdomen soft, non-tender, nondistended. MUSCULOSKELETAL: Left LE with erythema, induration and blister like skin appearance on [place] of tibia. Right heel area with a large 8 cm x 6 cm deep unhealthy appearing, with areas of blackening and probes down to bone. Yellow green discharge with foul smelling odor. Rt foot with 5th digit ray amputation. NEUROLOGICAL: Awake and alert. No gross neuro deficits. Psych cooperative, tearful at times. LUE PICC line site with no e.o infection. Laboratory AEROBIC BLOOD CULTURE Preliminary 08/05/17-2 NO GROWTH IN 2 DAYS AEROBIC BLOOD CULTURE Preliminary (changed) 08/04/17-1103 NO GROWTH IN 1 DAY ANAEROBIC BLOOD CULTURE Preliminary 08/05/17-1314 CULTURE GROWING GRAM NEGATIVE AXEL - FURTHER ID TO FOLLOW NEGATIVE FOR THE FOLLOWING ORGANISMS: ACINETOBACTER SSP., CITROBACTER SSP., ENTEROBACTER SSP., PROTEUS SSP., ESCHERICHIA COLI, KLEBSIELLA PNEUMONIA, KLEBSIELLA OXYTOCA, AND PSEUDOMONAS AERUGINOSA BY VERIGENE NUCLEIC ACID TEST. RESULTS OF NUCLEIC ACID TEST ARE PRELIMINARY AND WILL BE VERIFIED BY CULTURE AND SUSCEPTIBILITY TESTS TO FOLLOW. THE FOLLOWING RESISTANCE MARKERS WERE NOT DETECTED BY VERIGENE NUCLEIC ACID TEST: CTX-M, KPC, NDM, VIM, IMP, OXA. Laboratory Tests Test 08/05/17 13:00 White Blood Count 8.8 Red Blood Count 3.17 Hemoglobin 8.3 Hematocrit 26.0 Mean Corpuscular Volume 82.0 Mean Corpuscular Hemoglobin 26.1 Mean Corpuscular Hemoglobin Concent 31.9 Red Cell Distribution Width 18.0 Platelet Count 415 Mean Platelet Volume 7.5 Neutrophils (%) (Auto) 72.6 Lymphocytes (%) (Auto) 13.0 Monocytes (%) (Auto) 11.0 Eosinophils (%) (Auto) 2.3 Basophils (%) (Auto) 1.1 Neutrophils # (Auto) 6.4 Lymphocytes # (Auto) 1.2 Monocytes # (Auto) 1.0 Eosinophils # (Auto) 0.2 Basophils # (Auto) 0.1 CBC Comment DIFF FINAL Differential Comment Blood Urea Nitrogen 32 Creatinine 1.56 Random Glucose 253 Calcium Level 8.3 Sodium Level 134 Potassium Level 5.7 Chloride Level 100 Carbon Dioxide Level 27.4 Anion Gap 7 Estimat Glomerular Filtration Rate 34 Random Vancomycin Level 10.7 Date/Time Source Procedure Growth Status 08/05/17 13:05 Blood Peripheral Aerobic Blood Culture Pending Received 08/05/17 13:05 Blood Peripheral Anaerobic Blood Culture Pending Received Result Diagram: 08/05/17 1300 08/05/17 1300 Imaging Last Impressions Head CT 08/03/171947 Signed Impressions: Service Date/Time: Thursday, August 03, 2017 20:00 - CONCLUSION: 1. Right frontal scalp swelling. No acute intracranial abnormality. Remote lacunar infarct on the right. Manuel Carmichael MD Chest X-Ray 08/03/171947 Signed Impressions: Service Date/Time: Thursday, August 03, 2017 21:11 - CONCLUSION: 1. Left PICC line superior vena cava. Minimal subsegmental basilar opacity most characteristic of atelectasis. Manuel Carmichael MD Assessment and Plan Assessment and Plan Sepsis present on admission(fElevated WBC, tachycardia, source osteomyelitis and bacteremia) (pt was on antibiotics using PICC) Gram negative bacteremia sources: osteomyelitis or PICC line related infection. possible PICC line related infection (GNR bacteremia; PICC present on admission) . Placed at [facility] and coming to us from [facility]). Acute on chronic osteomyelitis with gangrenous base of left heel/calcaneus Charcot deformity of left foot. DM2 uncontrolled. PAD, PVD per history, pt has had a angiogram. Acute metabolic encephalopathy: sepsis related. CKD per history stage II. Recs Blood culture from PICC line x 1 Follow pending cultures and susceptibility. Continue Zosyn IV Continue Vanco IV (target 15-20) Follow Cr if increases will switch to dapto IV Check 2D ECHO. D.w pt, spouse in room in presence of . Source control is essential. and I agree that Left BKA may be best way to achieve the source control. Agree with Vascular Surgery consult for consideration of left BKA. Martha Villegas MD Aug 05, 2017 16:02
--- NOTE | 2017-08-05 16:14 | PD.POD.CON ---
Patient Intake Chief Complaint Ulceration with osteomyelitis left heel Consult Requested by Dr. Manrique Reason for Consult Evaluation and possible treatment of left foot wound and osteomyelitis Primary Care Physician Unknown History of Present Illness Amputation is a 62-year-old diabetic patient who is been dealing with an ulceration on the left heel for quite some time. She was seen previously at [facility] and presents from a nursing facility with mental status changes. Patient has an ulceration with exposed bone of the left heel. Patient [facility] was [facility] on IV vancomycin with a PICC line and discharged to a senior care facility. Patient started having mental status changes and was admitted to [place]. She has a positive blood culture. Patient think she may have had an MRI of the foot but cannot recall. She also has had VAC therapy. No improvement was done by the VAC therapy. In the wound steadily gotten worse. Coded Allergies: Sulfa (Sulfonamide Antibiotics) (Unverified Allergy, Severe, Hives, ) ciprofloxacin (Unverified Allergy, Severe, Nausea/Vomiting, 08/03/17) vancomycin (Unverified Allergy, Severe, Hives, 08/03/17) Preferred Language to Discuss: Citizen Of The [place] Barriers to Learning: None Teaching Method: Discussion Vital Signs Date Time Temp Pulse Resp B/P (MAP) Pulse Ox O2 Delivery O2 Flow Rate FiO2 08/05/17 12:03 98.2 93 21 160/80 (106) 94 08/05/17 08:08 97.3 97 15 174/80 (111) 94 08/05/17 03:24 98.0 99 17 175/80 (111) 93 08/04/17 23:08 98.0 100 17 119/64 (82) 92 08/04/17 19:19 98.5 104 17 137/61 (86) 90 Pain scale used: 0-10 numeric scale Pain score: 1 Medications Current Medications Sodium Chloride 1,000 ml @ 1,000 mls/hr Q1H IV Last administered on t 21:00; Start 08/03/17 at 20:27; Stop 08/03/17 at 21:26; Status DC Pharmacy Profile Note 0 ml @ 0 mls/hr UNSCH OTHER ; Start 08/03/17 at 22:45; Stop 08/05/17 at 08:37; Status DC Sodium Chloride 1,000 ml @ 100 mls/hr Q10H IV Last administered on 08/05/17 10:17; Start 08/03/17 at 23:00 Sodium Chloride (NS Flush) 2 ml UNSCH PRN IV FLUSH FLUSH AFTER USING IV ACCESS ; Start 08/03/17 at 22:45 Sodium Chloride (NS Flush) 2 ml BID IV FLUSH Last administered on 08/05/17 10 :18; Start 08/04/17 at 09:00 Ondansetron HCl (Zofran Inj) 4 mg Q6H PRN IVP NAUSEA OR VOMITING Last administered on 08/04/17 14:52; Start 08/03/17 at 22:45 Heparin Sodium (Porcine) (Heparin Inj) 5,000 units Q12H SQ Last administered on 08/05/17 10:18; Start 08/04/17 at 09:00 Acetaminophen (Tylenol) 650 mg Q6H PRN PO FEVER/PAIN SCALE 1 TO 2; Start 08/03 at 22:45 Acetaminophen/ Hydrocodone Bitart (Cromwell 5-325 Mg) 1 tab Q4H PRN PO PAIN SCALE 3 TO 5; Start 08/03/17 at 22:45 Acetaminophen/ Hydrocodone Bitart (Cromwell 10-325 Mg) 1 tab Q4H PRN PO PAIN SCALE 6 TO 10 Last administered on 08/05/17 13:23; Start 08/03/17 at 22:45 Senna/Docusate Sodium (Jenn-Colace) 1 tab BID PO ; Start 08/04/17 at 09:00 Magnesium Hydroxide (Milk Of Magnesia Liq) 30 ml Q12H PRN PO Mild constipation ; Start 08/03/17 at 22:45 Sennosides (Senokot) 17.2 mg Q12H PRN PO Moderate constipation; Start at 22:45 Bisacodyl (Dulcolax Supp) 10 mg DAILY PRN RECTAL SEVERE CONSITIPATION; Start 08/03/17 at 22:45 Lactulose (Lactulose Liq) 30 ml DAILY PRN PO SEVERE CONSITIPATION; Start 08/03 at 22:45 Dextrose (D50w (Vial) Inj) 50 ml UNSCH PRN IV PUSH HYPOGLYCEMIA-SEE COMMENTS; Start 08/04/17 at 00:45 Glucagon (Glucagon Inj) 1 mg UNSCH PRN OTHER HYPOGLYCEMIA-SEE COMMENTS; Start 08/04/17 at 00:45 Insulin Aspart (NovoLOG SUPPLEMENTAL SCALE) 1 ACHS SLIDING SCALE SQ Last administered on 08/05/17 13:21; Start 08/04/17 at 08:00 Ceftriaxone Sodium 1000 mg/ Sodium Chloride 100 ml @ 200 mls/hr Q24H IV Last administered on 08/05/17 00:58; Start 08/04/17 at 01:00; Stop 08/05/17 at 10 :45; Status DC Pharmacy Profile Note 0 ml @ 0 mls/hr UNSCH OTHER ; Start 08/05/17 at 08:30 Piperacillin Sod/ Tazobactam Sod 100 ml @ 200 mls/hr Q6HR IV Last administered on 08/05/17 12:10; Start 08/05/17 at 12:00 Vancomycin HCl 1250 mg/Sodium Chloride 262.5 ml @ 250 mls/hr Q24H IV ; Start 08/05/17 at 15:00 Miscellaneous Information SPECIFIC LAB TO BE DRAWN:VANCO TROUGH DATE TO BE DRElder.. ONCE ONCE .XX ; Start 08/07/17 at 14:45; Stop 08/07/17 at 14:46 Past, Family & Social History Past Medical History Endocrine: REPORTS HX OF: Diabetes mellitus Cardiovascular: REPORTS HX OF: Coronary artery disease, Hypertension Genitourinary: REPORTS HX OF: Kidney disease, Kidney failure Cancer/Hematology: REPORTS HX OF: Anemia Neurologic: REPORTS HX OF: Peripheral neuropathy Psychiatric: REPORTS HX OF: Other psychiatric history (encephalopathy) Past Surgical History Musculoskeletal: REPORTS HX OF: Other musculoskeletal srg Integumentary: REPORTS HX OF: Other integumentary surg Review of Systems Notes Mental status changes from her septicemia Genitourinary: COMPLAINS OF: Renal disease Musculoskeletal: COMPLAINS OF: Deformaties Neurological: COMPLAINS OF: Numbness/tingling, Changes in sensation Exam-Podiatry Constitutional General appearance: comfortable Nutritional status: overweight Orientation: alert and oriented x3 Dermatological Exam Skin Temp - Right: Within Normal Limits Skin Texture - Right: Within Normal Limits Skin Elasticity - Right: Within Normal Limits Skin Tugor - Right: Within Normal Limits Hair Growth - Right: Within Normal Limits Pigmentation - Right: Within Normal Limits Skin Temp - Left: Within Normal Limits Skin Texture - Left: Within Normal Limits Skin Elasticity - Left: Within Normal Limits Skin Tugor - Left: Within Normal Limits Hair Growth - Left: Within Normal Limits Pigmentation - Left: Within Normal Limits Ulcers: Location/Measurements Ulceration of left heel that probes to bone with necrotic surrounding tissue and ulceration. Positive odor. Minimal drainage on the bandage is noted. Patient has some ascending cellulitis which may be venous dermatitis. Vascular/Lymphatic Exam R Dorsails Pedis: Doppler L Dorsails Pedis: Doppler R Posterior Tibial: Doppler L Posterior Tibial: Doppler Neurologic Exam Present on right: Tingling, Paraesthesia Present on left: Tingling, Paraesthesia Musculoskeletal Exam Details Osteomyelitis of the left heel H Charcot deformity of the left arch. 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, right foot Lab and Radiology Results Laboratory Laboratory Tests Test 08/03/17 20:00 08/04/17 06:01 08/05/17 13:00 White Blood Count 11.5 TH/MM3 9.7 TH/MM3 8.8 TH/MM3 Red Blood Count 3.47 MIL/MM3 3.28 MIL/MM3 3.17 MIL/MM3 Hemoglobin 8.9 GM/DL 8.6 GM/DL 8.3 GM/DL Hematocrit 28.3 % 26.8 % 26.0 % Mean Corpuscular Volume 81.6 FL 81.9 FL 82.0 FL Mean Corpuscular Hemoglobin 25.8 PG 26.3 PG 26.1 PG Mean Corpuscular Hemoglobin Concent 31.6 % 32.1 % 31.9 % Red Cell Distribution Width 18.1 % 17.9 % 18.0 % Platelet Count 417 TH/MM3 379 TH/MM3 415 TH/MM3 Mean Platelet Volume 7.2 FL 7.1 FL 7.5 FL Neutrophils (%) (Auto) 74.3 % 74.5 % 72.6 % Lymphocytes (%) (Auto) 12.5 % 11.5 % 13.0 % Monocytes (%) (Auto) 10.5 % 11.3 % 11.0 % Eosinophils (%) (Auto) 1.7 % 1.9 % 2.3 % Basophils (%) (Auto) 1.0 % 0.8 % 1.1 % Neutrophils # (Auto) 8.6 TH/MM3 7.2 TH/MM3 6.4 TH/MM3 Lymphocytes # (Auto) 1.4 TH/MM3 1.1 TH/MM3 1.2 TH/MM3 Monocytes # (Auto) 1.2 TH/MM3 1.1 TH/MM3 1.0 TH/MM3 Eosinophils # (Auto) 0.2 TH/MM3 0.2 TH/MM3 0.2 TH/MM3 Basophils # (Auto) 0.1 TH/MM3 0.1 TH/MM3 0.1 TH/MM3 CBC Comment DIFF FINAL DIFF FINAL DIFF FINAL Differential Comment Laboratory Tests Test 08/03/17 20:00 08/04/17 02:03 08/04/17 06:01 08/05/17 13:00 Blood Urea Nitrogen 38 MG/DL 34 MG/DL 32 MG/DL Creatinine 1.92 MG/DL 1.59 MG/DL 1.56 MG/DL Random Glucose 219 MG/DL 204 MG/DL 253 MG/DL Total Protein 7.5 GM/DL 7.2 GM/DL Albumin 2.1 GM/DL 1.9 GM/DL Calcium Level 8.9 MG/DL 8.4 MG/DL 8.3 MG/DL Magnesium Level 2.4 MG/DL Alkaline Phosphatase 136 U/L 134 U/L Aspartate Amino Transf (AST/SGOT) 21 U/L 15 U/L Alanine Aminotransferase (ALT/SGPT) 22 U/L 22 U/L Total Bilirubin 0.5 MG/DL 0.4 MG/DL Sodium Level 131 MEQ/L 135 MEQ/L 134 MEQ/L Potassium Level 4.6 MEQ/L 4.7 MEQ/L 5.7 MEQ/L Chloride Level 94 MEQ/L 99 MEQ/L 100 MEQ/L Carbon Dioxide Level 28.8 MEQ/L 29.0 MEQ/L 27.4 MEQ/L Anion Gap 8 MEQ/L 7 MEQ/L 7 MEQ/L Estimat Glomerular Filtration Rate 26 ML/MIN 33 ML/MIN 34 ML/MIN Lactic Acid Level 2.1 mmol/L 1.0 mmol/L 1.3 mmol/L Ammonia 15 MCMOL/L Total Creatine Kinase 35 U/L Troponin I LESS THAN 0.02 NG/ML Lipase 77 U/L Microbiology Date/Time Source Procedure Growth Status 08/05/17 13:05 Blood Peripheral Aerobic Blood Culture Pending Received 08/05/17 13:05 Blood Peripheral Anaerobic Blood Culture Pending Received 08/05/17 13:00 Blood Peripheral Aerobic Blood Culture Pending Received 08/05/17 13:00 Blood Peripheral Anaerobic Blood Culture Pending Received 08/03/17 20:40 Blood Peripheral Aerobic Blood Culture - Preliminary NO GROWTH IN 2 DAYS Resulted 08/03/17 20:40 Blood Peripheral Anaerobic Blood Culture - Preliminary NO GROWTH IN 2 DAYS Resulted 08/03/17 20:00 Blood Peripheral Aerobic Blood Culture - Preliminary NO GROWTH IN 2 DAYS Resulted 08/03/17 20:00 Anaerobic Blood Culture - Preliminary Gram Negative Luis Enrique Resulted Radiology Last Impressions Head CT 08/03/171947 Signed Impressions: Service Date/Time: Thursday, August 03, 2017 20:00 - CONCLUSION: 1. Right frontal scalp swelling. No acute intracranial abnormality. Remote lacunar infarct on the right. Manuel Carmichael MD Chest X-Ray 08/03/171947 Signed Impressions: Service Date/Time: Thursday, August 03, 2017 21:11 - CONCLUSION: 1. Left PICC line superior vena cava. Minimal subsegmental basilar opacity most characteristic of atelectasis. Manuel Carmichael MD Assessment/Plan Problem List: (1) Osteomyelitis of ankle Status: Chronic (2) Cellulitis Status: Acute (3) Altered mental status Status: Acute (4) DM (diabetes mellitus) Status: Chronic (5) Wound infection Status: Acute (6) Encephalopathy Status: Acute Additional information PLAN: I Dry protective dressing was applied. Vascular consult for amputation of left leg. Patient seen with Dr. Villegas. Problem Qualifiers (1) Osteomyelitis of ankle: Qualified Codes: M86.672 - Other chronic osteomyelitis, left ankle and foot (2) Cellulitis: Qualified Codes: L03.119 - Cellulitis of unspecified part of limb (3) Altered mental status: Qualified Codes: R41.82 - Altered mental status, unspecified (4) DM (diabetes mellitus): Qualified Codes: E11.42 - Type 2 diabetes mellitus with diabetic polyneuropathy ; Z79.4 - long-term (current) use of insulin Hira Cheng DPM Aug 05, 2017 16:14
--- NOTE | 2017-08-05 16:37 | PD.VS.CON ---
History of Present Illness Chief Complaint: L heel wound Consult Requested by: Dr. Cheng History of Present Illness 62 yo female with a history of a L heel wound for over 6m according to her . Presented to ED Sun night with malaise chills and odor from wound. Pt is diabetic and hasn't walked in "some time" - likely years. Past/Family/Social History Past Medical History DM obesity CAD HTN Past Surgical History CABG in 2012 [facility] Social History nonsmoker Family History [place] Home Medications Reported Medications Zinc Sulfate (Zinc Sulfate) Pow, 1 XX 08/09/12 Ergocalciferol (Vitamin D2) 2,000 Unit Tab, 2000 UNIT PO 08/09/12 Ascorbic Acid (Vitamin C) 500 Mg Cap, 500 MG PO 08/09/12 Multiple Vitamin (Multivitamin) 1 Tab Tab, 1 TAB PO DAILY 08/09/12 Insulin Human Regular (Novolin R) 100 Units/Ml Inj, 1000 UNITS .XX 08/09/12 Oxycodone-Acetaminophen 5-325 mg (Percocet 5-325 mg) 5 Mg/325 Mg Tab, 1 TAB PO Q4HPRN 08/09/12 Losartan Potassium (Cozaar) 100 Mg Tab, 100 MG PO DAILY 08/09/12 [Humulin 70/30] No Conflict Check, 90 SC BIDAC 08/09/12 Metoprolol Succinate (Toprol Xl) 25 Mg Tabcr, 25 MG PO BID 08/09/12 Atorvastatin (Lipitor) 20 Mg Tab, 20 MG PO HS 08/09/12 Aspirin (Aspirin) 325 Mg Tab, 325 MG PO DAILY 08/09/12 Amlodipine Besylate (Norvasc) 5 Mg Tab, 5 MG PO DAILY 08/09/12 Coded Allergies: Sulfa (Sulfonamide Antibiotics) (Unverified Allergy, Severe, Hives, ) ciprofloxacin (Unverified Allergy, Severe, Nausea/Vomiting, 08/03/17) vancomycin (Unverified Allergy, Severe, Hives, 08/03/17) Review of Systems Constitutional: COMPLAINS OF: Chills, Change in appetite Cardiovascular: COMPLAINS OF: Dyspnea on Exertion, Lower Extremity Edema, DENIES: Chest pain Integumentary: COMPLAINS OF: Abnormal pigmentation Physical Exam Vitals/I&O Date Time Temp Pulse Resp B/P (MAP) Pulse Ox O2 Delivery O2 Flow Rate FiO2 08/05/17 12:03 98.2 93 21 160/80 (106) 94 08/05/17 08:08 97.3 97 15 174/80 (111) 94 08/05/17 03:24 98.0 99 17 175/80 (111) 93 08/04/17 23:08 98.0 100 17 119/64 (82) 92 08/04/17 19:19 98.5 104 17 137/61 (86) 90 08/05/17 08/05/17 08/05/17 07:00 15:00 23:00 Intake Total 200 ml 1050 ml Output Total 200 ml Balance 0 ml 1050 ml Neuro: alert, appropriately upset re impending loss of limb HEENT: ecchymoses R eye Neck: no JVD Heart: reg rate Lungs: clear Abdomen: obese, NT Vascular: palpable UE pulses Extremities: marked edema L LE with stasis cellulitis to knee L heel with necrotic tissue to calcaneus Laboratory Tests Test 08/05/17 13:00 White Blood Count 8.8 Red Blood Count 3.17 Hemoglobin 8.3 Hematocrit 26.0 Mean Corpuscular Volume 82.0 Mean Corpuscular Hemoglobin 26.1 Mean Corpuscular Hemoglobin Concent 31.9 Red Cell Distribution Width 18.0 Platelet Count 415 Mean Platelet Volume 7.5 Neutrophils (%) (Auto) 72.6 Lymphocytes (%) (Auto) 13.0 Monocytes (%) (Auto) 11.0 Eosinophils (%) (Auto) 2.3 Basophils (%) (Auto) 1.1 Neutrophils # (Auto) 6.4 Lymphocytes # (Auto) 1.2 Monocytes # (Auto) 1.0 Eosinophils # (Auto) 0.2 Basophils # (Auto) 0.1 CBC Comment DIFF FINAL Differential Comment Blood Urea Nitrogen 32 Creatinine 1.56 Random Glucose 253 Calcium Level 8.3 Sodium Level 134 Potassium Level 5.7 Chloride Level 100 Carbon Dioxide Level 27.4 Anion Gap 7 Estimat Glomerular Filtration Rate 34 Random Vancomycin Level 10.7 Date/Time Source Procedure Growth Status 08/05/17 13:05 Blood Peripheral Aerobic Blood Culture Pending Received 08/05/17 13:05 Blood Peripheral Anaerobic Blood Culture Pending Received Last [address] 08/03/17 194 Signed Impressions: Service Date/Time: Thursday, August 03, 2017 20:00 - CONCLUSION: 1. Right frontal scalp swelling. No acute intracranial abnormality. Remote lacunar infarct on the right. Manuel Carmichael MD Chest X-Ray 08/03/171947 Signed Impressions: Service Date/Time: Thursday, August 03, 2017 21:11 - CONCLUSION: 1. Left PICC line superior vena cava. Minimal subsegmental basilar opacity most characteristic of atelectasis. Manuel Carmichael MD Assessment and Plan Plan She has essentially a weight-bearing pressure ulcer that won't heal despite maximal wound care and antibiotics. I think she needs a major amputation and because she is non ambulatory needs a L AKA Will schedule as soon as Fri or , depending on patient's wishes. Curry Melvin MD [facility] RPVI tablet repair [facility] - Heart and Vascular Surgery at [facility] [phone] Curry Melvin MD Aug 05, 2017 16:37
[2017-08-05] MEDS: VANCOMYCIN INJ 1,250 MG in SODIUM CHLOR 0.9% 250 ML INJ 250 ML IV SCH (18:37)
[2017-08-06 03:59] VITALS: BP 166/76; PULSE 90; RESP 18; TEMP 98.7; O2SAT 95
[2017-08-06] MEDS: PIPERACIL-TAZO 4.5 GM PREMIX 100 ML IV SCH ×3 (05:13→19:16)
[2017-08-06 07:08] VITALS: BP 164/81; PULSE 90; RESP 16; TEMP 97.6; O2SAT 97
[2017-08-06] MEDS: SODIUM CHLORIDE 0.9% FLUSH 10 ML FLUSH IV FLUSH SCH ×2 (09:00→21:00)
[2017-08-06] MEDS: DOCUSATE SODIUM 50 MG/SENNA 8.6 MG TAB PO SCH ×2 (09:00→21:00)
[2017-08-06] MEDS: HEPARIN SODIUM - SQ 10,000 UNITS/ML VIAL SQ SCH ×2 (10:28→21:00)
[2017-08-06] MEDS: INSULIN ASPART SUPPLEMENTAL SCALE SQ SCH ×3 (10:28→22:47)
[2017-08-06] MEDS: ACETAMINOPHEN/HYDROcodone 325 MG/10 MG TAB PO PRN ×3 (10:29→22:53)
--- NOTE | 2017-08-06 10:43 | PD.VS.PN ---
Subjective Subjective/Hospital Course Afebrile 62/F Pt sitting in chair alert in NAD Dressing to LLE I/C/D Objective Vitals/I&O Date Time Temp Pulse Resp B/P (MAP) Pulse Ox O2 Delivery O2 Flow Rate FiO2 08/06/17 07:08 97.6 90 16 164/81 (108) 97 08/06/17 03:59 98.7 90 18 166/76 (106) 95 08/05/17 23:00 98.0 91 18 136/68 (90) 96 08/05/17 19:59 98.0 87 18 120/60 (80) 92 08/05/17 19:37 20 08/05/17 17:04 170/78 (108) 08/05/17 17:02 96.1 92 20 175/75 (108) 95 08/05/17 12:03 98.2 93 21 160/80 (106) 94 08/06/17 08/06/17 08/06/17 07:00 15:00 23:00 Intake Total 200 ml Output Total 800 ml Balance -600 ml Physical Exam GENERAL: ALert in nad SKIN: Warm and dry. Dressing to L LE I/C/D Laboratory Laboratory Tests Test 08/05/17 13:00 08/05/17 17:47 White Blood Count 8.8 Red Blood Count 3.17 Hemoglobin 8.3 Hematocrit 26.0 Mean Corpuscular Volume 82.0 Mean Corpuscular Hemoglobin 26.1 Mean Corpuscular Hemoglobin Concent 31.9 Red Cell Distribution Width 18.0 Platelet Count 415 Mean Platelet Volume 7.5 Neutrophils (%) (Auto) 72.6 Lymphocytes (%) (Auto) 13.0 Monocytes (%) (Auto) 11.0 Eosinophils (%) (Auto) 2.3 Basophils (%) (Auto) 1.1 Neutrophils # (Auto) 6.4 Lymphocytes # (Auto) 1.2 Monocytes # (Auto) 1.0 Eosinophils # (Auto) 0.2 Basophils # (Auto) 0.1 CBC Comment DIFF FINAL Differential Comment Blood Urea Nitrogen 32 Creatinine 1.56 Random Glucose 253 Calcium Level 8.3 Sodium Level 134 Potassium Level 5.7 5.5 Chloride Level 100 Carbon Dioxide Level 27.4 Anion Gap 7 Estimat Glomerular Filtration Rate 34 Random Vancomycin Level 10.7 C-Reactive Protein 21.00 Date/Time Source Procedure Growth Status 08/05/17 13:05 Blood Peripheral Aerobic Blood Culture Pending Resulted 08/05/17 13:05 Blood Peripheral Anaerobic Blood Culture - Final QNS - SEE AEROBE REPORT Resulted Assessment and Plan Assessment: (1) Wound infection Status: Acute Plan She has essentially a weight-bearing pressure ulcer that won't heal despite maximal wound care and antibiotics. Plan Discussed and reviewed L AKA surgical intervention Questions answered Pt requesting sign consent as she stated she is unable to see NPO after midnight Pt scheduled for a LEFT AKA tomorrow afternoon w/ Dr. Ngozi VELASQUEZ [facility] [phone] Nohemi Gracia Aug 06, 2017 10:43
--- NOTE | 2017-08-06 10:59 | HHI.PR ---
Subjective Remarks The patient states she is not doing well today. She is having some bleeding from her foot wound. She states she is having pain everywhere except her foot. She hasn't been eating much because she doesn't have an appetite. When asked about fevers or chills she states "all of the above". Oriented to person. Knows she is in the hospital but unsure of the name of the hospital. She states the month is July and the month is 2015. She is quite upset about having an amputation done tomorrow. Objective Vitals Vital Signs Date Time Temp Pulse Resp B/P (MAP) Pulse Ox O2 Delivery O2 Flow Rate FiO2 08/06/17 07:08 97.6 90 16 164/81 (108) 97 08/06/17 03:59 98.7 90 18 166/76 (106) 95 08/05/17 23:00 98.0 91 18 136/68 (90) 96 08/05/17 19:59 98.0 87 18 120/60 (80) 92 08/05/17 19:37 20 08/05/17 17:04 170/78 (108) 08/05/17 17:02 96.1 92 20 175/75 (108) 95 08/05/17 12:03 98.2 93 21 160/80 (106) 94 I/O 08/05/17 08/05/17 08/05/17 08/06/17 08/06/17 08/06/17 07:00 15:00 23:00 07:00 15:00 23:00 Intake Total 200 ml 1050 ml 1221 ml 200 ml Output Total 200 ml 800 ml Balance 0 ml 1050 ml 1221 ml -600 ml Intake Oral 100 ml IV Total 100 ml 1050 ml 1221 ml 200 ml Output Urine Total 200 ml 800 ml # Voids 1 2 2 # Bowel Movements 1 Result Diagram: 08/05/17 1300 08/05/17 1747 Imaging Last Impressions Head CT 08/03/171947 Signed Impressions: Service Date/Time: Thursday, August 03, 2017 20:00 - CONCLUSION: 1. Right frontal scalp swelling. No acute intracranial abnormality. Remote lacunar infarct on the right. Manuel Carmichael MD Chest X-Ray 08/03/171947 Signed Impressions: Service Date/Time: Thursday, August 03, 2017 21:11 - CONCLUSION: 1. Left PICC line superior vena cava. Minimal subsegmental basilar opacity most characteristic of atelectasis. Manuel Carmichael MD Objective Remarks GENERAL: Well-developed well-nourished. In no acute distress. Oriented 2. SKIN: Warm and dry. Clean dressing on right heel HEENT: Normocephalic. Pupils equal and round. Mucous membranes pink and moist. CARDIOVASCULAR: Regular rate and rhythm. No murmur appreciated. RESPIRATORY: No accessory muscle use. Clear to auscultation. Breath sounds equal bilaterally. GASTROINTESTINAL: Abdomen soft, non-tender, nondistended. Bowel sounds x4. MUSCULOSKELETAL: Left lower extremity with Deonte wrap. No clubbing or cyanosis. No edema. NEUROLOGICAL: Awake and alert. No focal neurological deficits. Moves upper and lower extremities spontaneously. Normal speech. PSYCHIATRIC: Labile mood and affect, agitated and tearful; insight and judgment fair. A/P Problem List: (1) Encephalopathy ICD Code: G93.40 - Encephalopathy, unspecified Status: Acute (2) Wound infection ICD Code: T14.8XXA - Other injury of unspecified body region, initial encounter ; L08.9 - Local infection of the skin and subcutaneous tissue, unspecified Status: Acute (3) SAQIB (acute kidney injury) ICD Code: N17.9 - Acute kidney failure, unspecified Status: Acute (4) Anemia ICD Code: D64.9 - Anemia, unspecified (5) DM (diabetes mellitus) ICD Code: E11.9 - Type 2 diabetes mellitus without complications Status: Chronic Assessment and Plan 62-year-old female with a PMH of HTN, Hyperlipidemia, Chronic Back Pain, CAD and DM who was sent to the ER from SNF secondary to AMS and lateral lower extremity wounds. Acute Metabolic Encephalopathy: pt w/ increasing confusion/agitation while at Rehab, awake and alert but +confusion on exam, waxes/wanes. Suspect secondary to acute infection, sepsis, cellulitis, bacteremia. CT Head w/ no acute findings, remote lacunar infarct. Neuro checks q4h. Blood Cultures positive, see below. Continue to monitor, patient seems to wax and wane. Possible underlying dementia component. Left Foot Diabetic Ulcer with Osteomyelitis: previously admitted to [facility], s /p debridement and wound vac, sent to SNF with PICC on IV Vanco. Presented to [facility] with worsening wound drainage/odor. CXR w/ PICC in good position. Continue w/ IV Vanc, Pharmacy consult to for dosing. Consulted podiatry, recommended vascular surgery evaluation for amputation. Consulted infectious disease, appreciate assistance. Vascular surgery consulted and planning on AKA 08/07. Suspected Bacteremia: 10/16 preliminary blood cultures with gram negative rods. Possible source osteomyelitis vs PICC related infection (present on admission). Added IV Zosyn in addition to IV Vanco. Repeat blood cultures pending. ID on board as above. SAQIB: Creatinine 1.92, previously 0.75 on 08/09/12, no recent labs for comparison. Likely secondary to poor oral intake. IVF. Repeat labs show some improvement, Cr 1.59. Repeat BMP pending. Normocytic Anemia: Likely from infection. Hemoglobin has been stable around 8. Repeat CBC pending. Monitor. DM: Sliding scale with Accu-Cheks. Continue home medications. Agitation/depression: Secondary to infection and need for AKA as above. Consult psychiatry and palliative care. Hyperkalemia: Mild, potassium 5.5 with hemolysis noted. EKG did not show any T- wave peaking. Repeat BMP pending. Could consider Kayexalate. DVT Prophylaxis: Heparin sq, hold at midnight for surgery tomorrow Problem Qualifiers (1) DM (diabetes mellitus): Qualified Codes: E11.42 - Type 2 diabetes mellitus with diabetic polyneuropathy ; Z79.4 - skilled nursing (current) use of insulin Bhavik Lizarraga Aug 06, 2017 10:59
[2017-08-06 12:03] VITALS: BP 160/73; PULSE 78; RESP 18; TEMP 97.6; O2SAT 97
[2017-08-06] MEDS: SODIUM CHLOR 0.9% 1000 ML INJ 1,000 ML IV SCH ×2 (12:15→22:44)
[2017-08-06 12:19] LABS: HEMATOCRIT 26.3 % (35.0-46.0); HEMOGLOBIN 8.3 GM/DL (11.6-15.3); MEAN CELL VOLUME 82.5 FL (80.0-100.0); MEAN CORPUSCULAR HGB CONC 31.5 % (32.0-36.0); MEAN PLATELET VOLUME 7.4 FL (7.0-11.0); PLATELET COUNT 380 TH/MM3 (150-450); RED BLOOD COUNT 3.19 MIL/MM3 (4.00-5.30); RED CELL DISTRIBUTION WIDTH 18.2 % (11.6-17.2); WHITE BLOOD COUNT 7.4 TH/MM3 (4.0-11.0)
[2017-08-06 12:44] LABS: BICARBONATE 24.9 MEQ/L (21.0-32.0); CALCIUM 8.4 MG/DL (8.5-10.1); CREATININE 1.38 MG/DL (0.50-1.00)
[2017-08-06] MEDS: VANCOMYCIN INJ 1,250 MG in SODIUM CHLOR 0.9% 250 ML INJ 250 ML IV SCH (15:07)
--- NOTE | 2017-08-06 15:20 | PD.CONS ---
Consult Service Palliative Care Consult Requested By LUCIA Carpenter. Primary Care Physician Unknown Reason for Consultation a. To assist with evaluation and management of symptoms including: Pain, debility. b. To assist medical decision maker(s) with: better understanding of current medical conditions; weighing benefits/burdens of medical treatment options; making medical treatment decisions. . (Ebony Garcia) HPI History of Present Illness Mrs. Carbajal is a 62-year-old female with a medical history significant for uncontrolled diabetes type 2, CAD status post CABG, PAD, PVD, hypertension, hyperlipidemia, chronic back pain and diabetes ulcers. Patient presented to ED via EMS on 08/03/17 secondary to altered mental status and bilateral lower extremity wounds. Patient with a history of left foot chronic osteomyelitis for which she recently received treatment at [facility]. [facility] and IV antibiotic, from where she presented to ED. ED workup including head CT showing right frontal scalp swelling but no acute intracranial abnormalities. Remote lacunar infarct on the right. Chest x-ray revealing minimal basilar opacities, likely atelectasis. Laboratory workup revealing WBC 11.5, Hgb 8.9, platelet count 417. BUN/creatinine 38/1.92. Lactic acid 2.1. UA negative for nitrates , moderate leukocytes. Patient was admitted for further management. Infectious disease, Dr. Villegas consulted on 08/05/17. Patient with history of left heel wound for over 6 months, progressed to chronic osteomyelitis, positive MRSA wound cultures. Patient was recently treated at [facility] where she underwent wound debridement and placement of wound VAC. Patient was subsequently discharged to the [facility] for rehabilitation on IV antibiotics. Patient reports that she was at the [facility] for approximately 1 week prior to presenting to ED. Podiatry, Dr. Cheng consulted on 08/05/17. Amputation of left lower extremity recommended in order to achieve source control. Vascular surgeon, Dr. Melvin consulted on 08/05/17. Left AKA recommended, scheduled for 08/07/17 in the afternoon. Palliative care consulted for clarifications of goals of care after amputation. Patient seen in ED. she was sitting up in chair in no acute distress. Maciej at bedside. Patient alert and oriented x self, place and situation. Intermittently confused/forgetful, verbal and able to communicate needs. Patient afebrile, hypertensive with SBP in the 160s. Currently tolerating room air, oxygen saturation in the high 90s. Blood cultures 08/03/17 positive for gram-negative rods. Laboratory workup today revealing WBC 7.4, Hgb stable at 8.3, platelet count 380. BUN/creatinine 29/1.38. No new imaging for review available. In this first visit, reviewed the role of palliative care in regards to symptom management as well as support surrounding goals of care and advance care planning. Patient and receptive of my visit. Obtained a past medical history and psychosocial history. Reviewed events leading to this hospitalization, clinical course and current medical management. Patient tells me that she has been sick for many years. She describes herself as a "noncompliant" patient. She describes her progressive decline, worsen for the past 2 years. mainly wheelchair-bound for the past year. Requiring moderate assistance with ADLs, which is also wheelchair-bound assisting with bathing and dressing. Patient reports feeling overwhelmed regarding amputation of left lower leg. Reviewed with patient rational for surgery as an effort to contain infection source. Patient verbalized wishing to proceed with surgical intervention. Reviewed that giving her current maintenance, she will likely require rehabilitation upon discharge. reports that he may not be able to care for pt any longer at home, patient may require long-term placement. Reviewed risks, benefits and limitations of CPR, intubation and mechanical ventilation. Patient reports that she has sign of community DNR last week while she was at the [facility]. However, patient electing to remain full code at this time until her surgery. CODE STATUS to be reevaluated on Friday. Patient verbalized that if she is placed on life support, she wouldn't want her dying process to be prolonged for more than a couple of days. Patient was offered assistance with completion of advanced directives/living will. Forms where left with patient's at bedside. . Function/Cognitive Trajectory Patient reporting progressive clinical decline, worsen for the past 2 years. Mainly wheelchair-bound for the past year. Requiring moderate assistance with ADLs, which is also wheelchair-bound assisting with bathing and dressing. Able to feed herself. Cognitive decline reported, increasingly forgetful/confused. . (Ebony Garcia) Review of Systems Constitutional: COMPLAINS OF: Fatigue, Fever, Pain, Generalized weakness, DENIES: Change in appetite Endocrine: DENIES: Abnorml menstrual pattern Eyes: COMPLAINS OF: Vision loss, DENIES: Eye inflammation Ears, nose, mouth, throat: DENIES: Hearing loss, Nasal discharge, Running Nose , Epistaxis Respiratory: DENIES: Apneas, Cough, Wheezing Cardiovascular: COMPLAINS OF: Dyspnea on Exertion, Lower Extremity Edema, DENIES: Chest pain Gastrointestinal: DENIES: Abdominal pain, Constipation, Diarrhea, Nausea, Vomiting, Difficulty Swallowing Genitourinary: DENIES: Urinary frequency Musculoskeletal: COMPLAINS OF: Stiffness, Joint Swelling, Back pain, Decreased range of motion Integumentary: COMPLAINS OF: Non-healing sores, DENIES: Pruritus Hematologic/Lymphatics: COMPLAINS OF: Bruising Immunologic/Allergic: DENIES: Eczema Neurologic: COMPLAINS OF: Abnormal gait, DENIES: Tremor, Poor Balance Psychiatric: COMPLAINS OF: Anxiety, Confusion, Depression, DENIES: Hallucinations (Ebony Garcia) Past Family Social History Coded Allergies: Sulfa (Sulfonamide Antibiotics) (Unverified Allergy, Severe, Hives, ) ciprofloxacin (Unverified Allergy, Severe, Nausea/Vomiting, 08/03/17) vancomycin (Unverified Allergy, Severe, Hives, 08/03/17) Past Medical History Uncontrolled diabetes type 2 Chronic non healing wound left foot. Left foot osteomyelitis. CAD status post CABG PAD PVD Hypertension Hyperlipidemia Chronic back pain Diabetes ulcers Bilateral cataracts . Past Surgical History Cholecystectomy CABG x 4 vessels Cervical spine surgery Right hip surgery Left foot bone debridement in Jul 2017 Right foot 5th digit ray amputation . Reported Medications Zinc Sulfate Pow 1 XX Vitamin D2 (Ergocalciferol) 2,000 Unit Tab 2,000 Unit PO Vitamin C (Ascorbic Acid) 500 Mg Cap 500 Mg PO Multivitamin (Multivitamins) 1 Tab Tab 1 Tab PO DAILY Novolin R 100 Units/Ml (Insulin Human Regular) 100 Units/Ml Inj 1,000 Units .XX Percocet (Oxycodone/Acetaminophen) 5 Mg/325 Mg Tab 1 Tab PO Q4HPRN Cozaar (Losartan Potassium) 100 Mg Tab 100 Mg PO DAILY [Humulin 70/30] 90 SC BIDAC Toprol Xl (Metoprolol Succinate) 25 Mg Tabcr 25 Mg PO BID Lipitor (Atorvastatin Calcium) 20 Mg Tab 20 Mg PO HS Aspirin 325 Mg Tab 325 Mg PO DAILY Norvasc (Amlodipine Besylate) 5 Mg Tab 5 Mg PO DAILY . Current Medications Medications (Trade) Dose Ordered Sig/Gloria Route Start Time Stop Time Status Last Admin Sodium Chloride 1,000 ml @ 100 mls/hr Q10H IV 08/03/17 23:00 08/06/17 12:15 (NS Flush) 2 ml UNSCH PRN IV FLUSH 08/03/17 22:45 08/05/17 18:00 (NS Flush) 2 ml BID IV FLUSH 08/04/17 09:00 08/05/17 21:27 (Zofran Inj) 4 mg Q6H PRN IVP 08/03/17 22:45 08/04/17 14:52 (Heparin Inj) 5,000 units Q12H SQ 08/04/17 09:00 Future Hold 08/06/17 10:28 (Tylenol) 650 mg Q6H PRN PO 08/03/17 22:45 ([place] 5-325 Mg) 1 tab Q4H PRN PO 08/03/17 22:45 ([place] 10-325 Mg) 1 tab Q4H PRN PO 08/03/17 22:45 08/06/17 10:29 (Jenn-Colace) 1 tab BID PO 08/04/17 09:00 (Milk Of Magnesia Liq) 30 ml Q12H PRN PO 08/03/17 22:45 (Senokot) 17.2 mg Q12H PRN PO 08/03/17 22:45 (Dulcolax Supp) 10 mg DAILY PRN RECTAL 08/03/17 22:45 (Lactulose Liq) 30 ml DAILY PRN PO 08/03/17 22:45 (D50w (Vial) Inj) 50 ml UNSCH PRN IV PUSH 08/04/17 00:45 (Glucagon Inj) 1 mg UNSCH PRN OTHER 08/04/17 00:45 (NovoLOG SUPPLEMENTAL SCALE) 1 ACHS SLIDING SCALE SQ 08/04/17 08:00 08/06/17 12:16 Pharmacy Profile Note 0 ml @ 0 mls/hr UNSCH OTHER 08/05/17 08:30 Piperacillin Sod/ Tazobactam Sod 100 ml @ 200 mls/hr Q6HR IV 08/05/17 12:00 08/06/17 12:16 Vancomycin HCl 1250 mg/Sodium Chloride 262.5 ml @ 250 mls/hr Q24H IV 08/05/17 15:00 08/05/17 18:37 Miscellaneous Information SPECIFIC LAB TO BE DRAWN:[facility] DATE TO BE DRDiana. ONCE ONCE .XX 08/07/17 14:45 08/07/17 14:46 Family History Father at age 46 of acute RI, paternal grandmother with diabetes mellitus type 2. . Substance Use Tobacco: Denies. Alcohol: Denies. Prescription med abuse: Denies. Illicits: Denies. . Psychosocial History Patient was born in [place]. Grew up in [place]. Moved to [place] in 1992. Has been to for the past 26 years, they have no children. 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 . Spiritual/Cultural Factors No zoroastrianism affiliation. . (Ebony Garcia) Living Will: Never completed Health Care Surrogate: Never completed Durable Power of Alteration Worker: Never completed Health Care Surrogate(s): No advance directives completed. As per [place] statute, healthcare proxy decision making falls to patient's Maciej Carbajal. . Today's verbally stated goals: Full code. Aggressive management. . Family/friends goals: Patient's supportive of patient's wishes. . Ethical and Legal Issues No ethical legal issues identified. . (Ebony Garcia) Physical Exam Vital Signs Date Time Temp Pulse Resp B/P (MAP) Pulse Ox O2 Delivery O2 Flow Rate FiO2 08/06/17 12:03 97.6 78 18 160/73 (102) 97 08/06/17 07:08 97.6 90 16 164/81 (108) 97 08/06/17 03:59 98.7 90 18 166/76 (106) 95 08/05/17 23:00 98.0 91 18 136/68 (90) 96 08/05/17 19:59 98.0 87 18 120/60 (80) 92 08/05/17 19:37 20 08/05/17 17:04 170/78 (108) 08/05/17 17:02 96.1 92 20 175/75 (108) 95 08/06/17 08/07/17 19:00 07:00 Intake Total 100 ml Balance 100 ml IV Total 100 ml # Voids 2 Exam CONSTITUTIONAL/GENERAL: This is an obese, ill appearing woman sitting up in chair in no acute distress. Patient looks older than stated age. TUBES/LINES/DRAINS: PIV's. SKIN: No jaundice. Not diaphoretic. Erythema to bilateral lower extremities. Left lower leg wrapped in Deonte wrap, moderate serosanguineous discharge. HEAD: Atraumatic. Normocephalic. EYES: Pupils equal and round and reactive. Bilateral cataracts. Extraocular motions intact. No scleral icterus. No injection or drainage. Large right periorbital ecchymosis. ENT: Hearing grossly normal. Nose without bleeding or purulent drainage. Poor dentition, moist oral mucosa. NECK: Trachea midline. Supple, nontender. CARDIOVASCULAR: Regular rate and rhythm. Edema to bilateral lower extremities, left more than right. RESPIRATORY/CHEST: Symmetric, unlabored respirations. Clear, diminished to auscultation. Breath sounds equal bilaterally. GASTROINTESTINAL: Abdomen obese, large, round, soft, nontender. No guarding. Bowel sounds present. GENITOURINARY: Without palpable bladder distension. MUSCULOSKELETAL: Erythema, edema to bilateral lower extremities. Left lower leg wrapped in Deonte wrap, serosanguineous discharge. Right foot with fifth digit amputation. NEUROLOGICAL: Awake and alert x self, place and situation. Intermittently confused. Follows commands. Moves all extremities. PSYCHIATRIC: Calm. . (Ebony Garcia) Diagnostic Tests Laboratory Laboratory Tests Test 08/03/17 20:00 08/03/17 22:45 08/04/17 02:03 08/04/17 06:01 White Blood Count 11.5 TH/MM3 (4.0-11.0) 9.7 TH/MM3 (4.0-11.0) Red Blood Count 3.47 MIL/MM3 (4.00-5.30) 3.28 MIL/MM3 (4.00-5.30) Hemoglobin 8.9 GM/DL (11.6-15.3) 8.6 GM/DL (11.6-15.3) Hematocrit 28.3 % (35.0-46.0) 26.8 % (35.0-46.0) Mean Corpuscular Volume 81.6 FL (80.0-100.0) 81.9 FL (80.0-100.0) Mean Corpuscular Hemoglobin 25.8 PG (27.0-34.0) 26.3 PG (27.0-34.0) Mean Corpuscular Hemoglobin Concent 31.6 % (32.0-36.0) 32.1 % (32.0-36.0) Red Cell Distribution Width 18.1 % (11.6-17.2) 17.9 % (11.6-17.2) Platelet Count 417 TH/MM3 (150-450) 379 TH/MM3 (150-450) Mean Platelet Volume 7.2 FL (7.0-11.0) 7.1 FL (7.0-11.0) Neutrophils (%) (Auto) 74.3 % (16.0-70.0) 74.5 % (16.0-70.0) Lymphocytes (%) (Auto) 12.5 % (9.0-44.0) 11.5 % (9.0-44.0) Monocytes (%) (Auto) 10.5 % (0.0-8.0) 11.3 % (0.0-8.0) Eosinophils (%) (Auto) 1.7 % (0.0-4.0) 1.9 % (0.0-4.0) Basophils (%) (Auto) 1.0 % (0.0-2.0) 0.8 % (0.0-2.0) Neutrophils # (Auto) 8.6 TH/MM3 (1.8-7.7) 7.2 TH/MM3 (1.8-7.7) Lymphocytes # (Auto) 1.4 TH/MM3 (1.0-4.8) 1.1 TH/MM3 (1.0-4.8) Monocytes # (Auto) 1.2 TH/MM3 (0-0.9) 1.1 TH/MM3 (0-0.9) Eosinophils # (Auto) 0.2 TH/MM3 (0-0.4) 0.2 TH/MM3 (0-0.4) Basophils # (Auto) 0.1 TH/MM3 (0-0.2) 0.1 TH/MM3 (0-0.2) CBC Comment DIFF FINAL DIFF FINAL Differential Comment Prothrombin Time 11.4 SEC (9.8-11.6) Prothromb Time International Ratio 1.0 RATIO Activated Partial Thromboplast Time 32.7 SEC (24.3-30.1) Blood Urea Nitrogen 38 MG/DL (7-18) 34 MG/DL (7-18) Creatinine 1.92 MG/DL (0.50-1.00) 1.59 MG/DL (0.50-1.00) Random Glucose 219 MG/DL (74-106) 204 MG/DL (74-106) Total Protein 7.5 GM/DL (6.4-8.2) 7.2 GM/DL (6.4-8.2) Albumin 2.1 GM/DL (3.4-5.0) 1.9 GM/DL (3.4-5.0) Calcium Level 8.9 MG/DL (8.5-10.1) 8.4 MG/DL (8.5-10.1) Magnesium Level 2.4 MG/DL (1.5-2.5) Alkaline Phosphatase 136 U/L (45-117) 134 U/L (45-117) Aspartate Amino Transf (AST/SGOT) 21 U/L (15-37) 15 U/L (15-37) Alanine Aminotransferase (ALT/SGPT) 22 U/L (10-53) 22 U/L (10-53) Total Bilirubin 0.5 MG/DL (0.2-1.0) 0.4 MG/DL (0.2-1.0) Sodium Level 131 MEQ/L (136-145) 135 MEQ/L (136-145) Potassium Level 4.6 MEQ/L (3.5-5.1) 4.7 MEQ/L (3.5-5.1) Chloride Level 94 MEQ/L (98-107) 99 MEQ/L (98-107) Carbon Dioxide Level 28.8 MEQ/L (21.0-32.0) 29.0 MEQ/L (21.0-32.0) Anion Gap 8 MEQ/L (5-15) 7 MEQ/L (5-15) Estimat Glomerular Filtration Rate 26 ML/MIN (>89) 33 ML/MIN (>89) Lactic Acid Level 2.1 mmol/L (0.4-2.0) 1.0 mmol/L (0.4-2.0) 1.3 mmol/L (0.4-2.0) Ammonia 15 MCMOL/L (11-32) Total Creatine Kinase 35 U/L (26-192) Troponin I LESS THAN 0.02 NG/ML Lipase 77 U/L (73-393) Urine Color YELLOW (YELLW/STRAW) Urine Turbidity CLEAR (CLEAR) Urine pH 6.5 (5.0-8.5) Urine Specific [place] 1.012 (1.002-1.035) Urine Protein TRACE mg/dL (NEG-TRACE) Urine Glucose (UA) NEG mg/dL (NEG) Urine Ketones NEG mg/dL (NEG) Urine Occult Blood TRACE (NEG) Urine Nitrite NEG (NEG) Urine Bilirubin NEG (NEG) Urine Urobilinogen LESS THAN 2.0 MG/DL (LESS Urine Leukocyte Esterase MOD (NEG) Urine RBC 5 /hpf (0-3) Urine WBC 8 /hpf (0-5) Urine Squamous Epithelial Cells 3 /hpf (0-5) Urine Amorphous Sediment RARE Urine Mucus FEW /lpf (OCC) Microscopic Urinalysis Comment CULT NOT INDICATED Random Vancomycin Level 25.8 COMMENT Test 08/05/17 13:00 08/05/17 17:47 08/06/17 11:57 White Blood Count 8.8 TH/MM3 (4.0-11.0) 7.4 TH/MM3 (4.0-11.0) Red Blood Count 3.17 MIL/MM3 (4.00-5.30) 3.19 MIL/MM3 (4.00-5.30) Hemoglobin 8.3 GM/DL (11.6-15.3) 8.3 GM/DL (11.6-15.3) Hematocrit 26.0 % (35.0-46.0) 26.3 % (35.0-46.0) Mean Corpuscular Volume 82.0 FL (80.0-100.0) 82.5 FL (80.0-100.0) Mean Corpuscular Hemoglobin 26.1 PG (27.0-34.0) 26.0 PG (27.0-34.0) Mean Corpuscular Hemoglobin Concent 31.9 % (32.0-36.0) 31.5 % (32.0-36.0) Red Cell Distribution Width 18.0 % (11.6-17.2) 18.2 % (11.6-17.2) Platelet Count 415 TH/MM3 (150-450) 380 TH/MM3 (150-450) Mean Platelet Volume 7.5 FL (7.0-11.0) 7.4 FL (7.0-11.0) Neutrophils (%) (Auto) 72.6 % (16.0-70.0) Lymphocytes (%) (Auto) 13.0 % (9.0-44.0) Monocytes (%) (Auto) 11.0 % (0.0-8.0) Eosinophils (%) (Auto) 2.3 % (0.0-4.0) Basophils (%) (Auto) 1.1 % (0.0-2.0) Neutrophils # (Auto) 6.4 TH/MM3 (1.8-7.7) Lymphocytes # (Auto) 1.2 TH/MM3 (1.0-4.8) Monocytes # (Auto) 1.0 TH/MM3 (0-0.9) Eosinophils # (Auto) 0.2 TH/MM3 (0-0.4) Basophils # (Auto) 0.1 TH/MM3 (0-0.2) CBC Comment DIFF FINAL Differential Comment Blood Urea Nitrogen 32 MG/DL (7-18) 29 MG/DL (7-18) Creatinine 1.56 MG/DL (0.50-1.00) 1.38 MG/DL (0.50-1.00) Random Glucose 253 MG/DL (74-106) 245 MG/DL (74-106) Calcium Level 8.3 MG/DL (8.5-10.1) 8.4 MG/DL (8.5-10.1) Sodium Level 134 MEQ/L (136-145) 135 MEQ/L (136-145) Potassium Level 5.7 MEQ/L (3.5-5.1) 5.5 MEQ/L (3.5-5.1) 5.4 MEQ/L (3.5-5.1) Chloride Level 100 MEQ/L (98-107) 102 MEQ/L (98-107) Carbon Dioxide Level 27.4 MEQ/L (21.0-32.0) 24.9 MEQ/L (21.0-32.0) Anion Gap 7 MEQ/L (5-15) 8 MEQ/L (5-15) Estimat Glomerular Filtration Rate 34 ML/MIN (>89) 39 ML/MIN (>89) Random Vancomycin Level 10.7 COMMENT C-Reactive Protein 21.00 MG/DL (0.00-0.30) (Ebony Garcia) Result Diagram: 08/06/17 1157 08/06/17 1157 Microbiology Microbiology Date/Time Source Procedure Growth Status 08/05/17 13:05 Blood Peripheral Aerobic Blood Culture - Preliminary NO GROWTH IN 1 DAY Resulted 08/05/17 13:05 Blood Peripheral Anaerobic Blood Culture - Final QNS - SEE AEROBE REPORT Resulted 08/05/17 13:00 Blood Peripheral Aerobic Blood Culture - Preliminary NO GROWTH IN 1 DAY Resulted 08/05/17 13:00 Blood Peripheral Anaerobic Blood Culture - Final QNS - SEE AEROBE REPORT Resulted 08/03/17 20:40 Blood Peripheral Aerobic Blood Culture - Preliminary NO GROWTH IN 3 DAYS Resulted 08/03/17 20:40 Blood Peripheral Anaerobic Blood Culture - Preliminary NO GROWTH IN 3 DAYS Resulted 08/03/17 20:00 Blood Peripheral Aerobic Blood Culture - Preliminary NO GROWTH IN 3 DAYS Resulted 08/03/17 20:00 Anaerobic Blood Culture - Preliminary Gram Negative Luis Enrique Resulted Imaging Last Impressions Head CT 08/03/171947 Signed Impressions: Service Date/Time: Thursday, August 03, 2017 20:00 - CONCLUSION: 1. Right frontal scalp swelling. No acute intracranial abnormality. Remote lacunar infarct on the right. Manuel Carmichael MD Chest X-Ray 08/03/171947 Signed Impressions: Service Date/Time: Thursday, August 03, 2017 21:11 - CONCLUSION: 1. Left PICC line superior vena cava. Minimal subsegmental basilar opacity most characteristic of atelectasis. Manuel Carmichael MD (Ebony Garcia) Patient/Family Conference Present at Family Conference: Patient and Maciej. Family Conference Time (mins): 45 Family Conference Location: Bedside Issues Discussed: * Palliative care role, purpose, approach * Additional medical, psychosocial, and spiritual history * Patients general health, functional status, and cognitive changes in the months leading up to the current hospitalization * Patient/family understanding of the current medical problems -osteomyelitis of left lower extremity, sepsis, gram-negative bacteremia, multiple chronic ongoing comorbidities. * Patient/family understanding of prognosis * Patients goals of care as best understood from advance directives and/or conversations and/or values * Current medical treatment options and benefits/burdens of those options * Questions answered to the best of my ability * Palliative care contact information provided * Risks, benefits and limitations of CPR, intubation and mechanical ventilation * Advance directives to include designation of healthcare surrogate and living will . (Ebony Garcia) Assessment and Plan Disease Oriented Problem List: (1) Bacteremia (2) Osteomyelitis of ankle (3) MRSA (methicillin resistant staph aureus) culture positive (4) SAQIB (acute kidney injury) (5) Diabetes mellitus type 2, uncontrolled, with complications (6) Physical deconditioning Symptom Scale: (1) Pain 0-10 Scale: 3 Comment: Acute on chronic (2) Debility 0-10 Scale: Unable to quantify Comment: Progressive decline Pertinent Non-Medical Issues Psychosocial: Patient was born in [place]. Grew up in [place]. Moved to [place] in 1992. Has been to for the past 26 years, they have no children. 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 Spiritual: No zoroastrianism affiliation. Legal: No advance directives completed. Ethical issues impacting care: No ethical issues identified. . Important Contacts Maciej Carbajal . Friend/neighbor Laila Bella . . Prognosis Mrs. Carbajal is a 62-year-old female with a medical history significant for uncontrolled diabetes type 2, CAD status post CABG, PAD, PVD, hypertension, hyperlipidemia, chronic back pain and diabetes ulcers. Patient with history of left heel wound for over 6 months, progressed to chronic osteomyelitis, positive MRSA wound cultures. Patient was recently treated at [facility] where she underwent wound debridement and placement of wound VAC. Patient now presented with bacteremia, sepsis requiring amputation of left lower extremity for source control. Patient is a very high risk for further complications, continue decline and given multiple ongoing chronic comorbidities, acute infection and profound physical deconditioning. . Code Status: Full Code Plan * CODE STATUS: FULL code. Patient reports that she has signed a community DNR while in rehabilitation; however, electing to remain full code at this time until after surgery. * HEALTHCARE DECISION-MAKING: Patient participating in medical decision-making. She appears to have fair understanding of her complicated medical issues and retains the ability to weight benefits versus burdens of treatment options. Intermittent forgetfulness/confusion, appears to be resolving. No advance directives completed. As per [place] statute, healthcare proxy decision-making falls to patient's Maciej Carbajal. Palliative care recommends shared decision-making with at this time given intermittent forgetfulness/ confusion. * GOALS OF CARE: Patient electing to continue aggressive management to include full code and left AKA. Patient verbalized understanding rationale for Lt AKA as infection source control given ongoing wound complications for the past 6 months. Patient wishing for rehabilitation upon discharge, likely to transition into long-term placement given 's inability to care for patient at home as he is also wheelchair bound with chronic medical issues. Patient wishing to revisit code status after surgery, she reports signing a community DNR while in rehabilitation. However, opting to remain full code until after surgery. Palliative care offered assistance with completion of advanced directives/living will. Forms left with patient's at bedside. is supportive of patient's wishes. * SYMPTOMS: = Pain, acute on chronic. History of chronic low back and right hip pain, acute pain secondary to lower extremities infection. Home regimen of Percocet 5/325mg q4hr PRN, remains stated. [place] 10/325mg also available as needed. Patient verbalized pain controlled with current management. = Debility , progressive. Worsening for the past year. Likely to require rehabilitation upon discharge. * Palliative care contact information has been provided to patient and . * Palliative care will continue to follow-up for further clarifications of goals of care as patient's clinical course continues to evolve. . (Ebony Garcia) Time Spent Total Floor Time (mins): 68 (Total time to include review and summarization of available medical records, physical exam, goals of care conversation with patient and , conversation regarding advanced directives/living will, case discussion with bedside RN.) >50% Counseling/Coord of Care: Yes (Ebony Garcia) Thank you for the opportunity to participate in the care of Ms. Carbajal. (Ebony Garcia) Collaborating MD Comments To help prompt me to consider important information that might be impacting today's encounter and assessment, information from prior notes written by myself or my colleagues may have been "brought forward" into today's note. My signature on this note, however, is an attestation that I personally performed the exam, history, and/or decision-making noted today, and, unless otherwise indicated, the interactions with patient, family, and staff as well as the review of records all occurred today. I also attest that the listed assessment and stated plan reflect my best clinical judgment today based on the combination of historical information, prior notes, and today's exam/ interactions. When time spent is documented, it refers only to time spent today by the signer, or if indicated, combined time spent today by collaborating physician/nurse practitioner. (Ebony Garcia) Collaborating MD Comments Chart reviewed. Case discussed with palliative care TIER OVER. Above note reviewed and I concur. . . (Sukhjinder Crane MD) Ebony Garcia Aug 06, 2017 15:17 Sukhjinder Crane MD Aug 07, 2017 17:25
[2017-08-06] MEDS ORDERED: SODIUM POLYSTYRENE SULFONATE SUSP 15 GM/60 ML CUP PO ONE (16:00)
[2017-08-06 16:53] VITALS: BP 174/87; PULSE 90; RESP 16; TEMP 98.2; O2SAT 98
[2017-08-06] MEDS ORDERED: METO50TA PO (17:35)
[2017-08-06] MEDS ORDERED: HUMU70IN SQ (17:35)
[2017-08-06] MEDS ORDERED: GABA100C4 PO (17:35)
[2017-08-06] MEDS ORDERED: SPIR50TA PO (17:35)
[2017-08-06] MEDS ORDERED: COZA100T PO (17:35)
[2017-08-06] MEDS ORDERED: LACTTAB8 PO (17:35)
[2017-08-06] MEDS ORDERED: OXYC1TAB63 PO (17:35)
[2017-08-06] MEDS ORDERED: CITRSOL4 PO (17:35)
[2017-08-06] MEDS ORDERED: SENN8.6T81 PO (17:35)
[2017-08-06] MEDS ORDERED: ASPI81CH CHEW (17:35)
[2017-08-06] MEDS ORDERED: AMLO2.5T PO (17:35)
[2017-08-06] MEDS ORDERED: CYCL5TAB PO (17:35)
[2017-08-06] MEDS ORDERED: BUSP10TA PO (17:35)
[2017-08-06] MEDS ORDERED: BISA10SU3 RECTAL (17:35)
[2017-08-06] MEDS ORDERED: ATOR20TA15 PO (17:35)
[2017-08-06] MEDS ORDERED: SERT-129 PO (17:35)
[2017-08-06] MEDS ORDERED: NOVOLOGP2 SQ (17:35)
[2017-08-06] MEDS ORDERED: BUME2TAB PO (17:35)
[2017-08-06] MEDS ORDERED: TYLE325T PO (17:35)
[2017-08-06 18:05] VITALS: BP 155/73; PULSE 85; RESP 18; TEMP 98.9; O2SAT 98
[2017-08-06] MEDS: busPIRone HCL 10 MG TAB PO SCH (18:51)
[2017-08-06] MEDS: METOPROLOL TARTRATE 50 MG TAB PO SCH ×2 (18:51→22:45)
[2017-08-06 20:00] VITALS: BP 157/71; PULSE 86; RESP 20; TEMP 97.9; O2SAT 96
[2017-08-06] MEDS ORDERED: CHLORHEXIDINE GLUCONATE 2 % 1 PACK (2 CLOTHS) TOPICAL PRN (22:30)
[2017-08-06] MEDS ORDERED: LACTATED RINGER'S 1000 ML IV PRN (22:30)
[2017-08-06] MEDS ORDERED: POVIDONE IODINE 5% (ANTISEPSIS KIT) 4 APPLICATIONS EACH NARE PRN (22:30)
[2017-08-06] MEDS ORDERED: SODIUM CHLORID 0.9% 500 ML IV PRN (22:30)
[2017-08-06] MEDS: GABAPENTIN 300 MG CAP PO SCH (22:45)
[2017-08-06] MEDS: LACTOBACILLUS ACIDOPHILUS TAB PO SCH (22:45)
[2017-08-06] MEDS: ATORVASTATIN 20 MG TAB PO SCH (22:45)
[2017-08-07] VITALS: BP 145/67; PULSE 72; RESP 20; TEMP 97.8; O2SAT 96
[2017-08-07] MEDS: PIPERACIL-TAZO 4.5 GM PREMIX 100 ML IV SCH ×3 (00:06→12:26)
[2017-08-07 04:00] VITALS: BP 163/76; PULSE 67; RESP 20; TEMP 98.1; O2SAT 97
[2017-08-07] MEDS: ACETAMINOPHEN/HYDROcodone 325 MG/10 MG TAB PO PRN ×2 (05:07→20:41)
[2017-08-07 08:00] VITALS: BP 143/66; PULSE 62; PULSE 64; RESP 18; TEMP 98.2; O2SAT 94
[2017-08-07] MEDS: METOPROLOL TARTRATE 50 MG TAB PO SCH ×2 (09:00→20:41)
[2017-08-07] MEDS: DOCUSATE SODIUM 50 MG/SENNA 8.6 MG TAB PO SCH ×2 (09:00→20:44)
[2017-08-07] MEDS: SODIUM CHLORIDE 0.9% FLUSH 10 ML FLUSH IV FLUSH SCH ×2 (09:00→20:43)
[2017-08-07] MEDS: LACTOBACILLUS ACIDOPHILUS TAB PO SCH ×2 (09:00→20:41)
[2017-08-07] MEDS: busPIRone HCL 10 MG TAB PO SCH (09:00)
[2017-08-07] MEDS: INSULIN ASPART SUPPLEMENTAL SCALE SQ SCH ×4 (09:06→20:43)
[2017-08-07 09:11] LABS: BICARBONATE 25.4 MEQ/L (21.0-32.0); CALCIUM 8.5 MG/DL (8.5-10.1); CREATININE 1.54 MG/DL (0.50-1.00)
[2017-08-07] MEDS: SODIUM CHLOR 0.9% 1000 ML INJ 1,000 ML IV SCH ×2 (11:06→16:00)
[2017-08-07 12:00] VITALS: BP 169/74; PULSE 78; RESP 18; TEMP 98.2; O2SAT 98
[2017-08-07] MEDS ORDERED: THROMBIN (TOPICAL) 20,000 UNIT SPRAY KIT ONE (13:26)
--- NOTE | 2017-08-07 13:31 | HHI.PR ---
Subjective Remarks Written by Ginny Montero, acting as scribe for Dr. Espinoza on 08/07/17 at 14: 11. Follow-up visit left foot diabetic ulcer with osteomyelitis, acute metabolic encephalopathy, [place] I. Patient seen and examined today sitting in the chair. Neighbor and at the bedside. States she is very thirsty as she has nothing to drink because of the planned procedure for the afternoon. Patient will undergo left AKA by Vascular surgeon. Denies pain or discomfort. Denies shortness of breath, dyspnea. Reports some cough, not expectorating anything. Denies fevers, chills, nausea, vomiting, diarrhea. Objective Vitals Vital Signs Date Time Temp Pulse Resp B/P (MAP) Pulse Ox O2 Delivery O2 Flow Rate FiO2 08/07/17 04:00 Room Air 08/07/17 04:00 98.1 67 20 163/76 (105) 97 08/07/17 00:00 Room Air 08/07/17 00:00 97.8 72 20 145/67 (93) 96 08/06/17 20:00 97.9 86 20 157/71 (99) 96 08/06/17 18:05 98.9 85 18 155/73 (100) 98 08/06/17 16:53 98.2 90 16 174/87 (116) 98 I/O 08/06/17 08/06/17 08/06/17 08/07/17 08/07/17 08/07/17 07:00 15:00 23:00 07:00 15:00 23:00 Intake Total 200 ml 100 ml 340 ml Output Total 800 ml Balance -600 ml 100 ml 340 ml Intake Oral 240 ml IV Total 200 ml 100 ml 100 ml Output Urine Total 800 ml # Voids 2 1 1 # Bowel Movements 1 1 Result Diagram: 08/06/17 1157 08/07/17 0616 Imaging Last Impressions Head CT 08/03/171947 Signed Impressions: Service Date/Time: Thursday, August 03, 2017 20:00 - CONCLUSION: 1. Right frontal scalp swelling. No acute intracranial abnormality. Remote lacunar infarct on the right. Manuel Carmichael MD Chest X-Ray 08/03/171947 Signed Impressions: Service Date/Time: Thursday, August 03, 2017 21:11 - CONCLUSION: 1. Left PICC line superior vena cava. Minimal subsegmental basilar opacity most characteristic of atelectasis. Manuel Carmichael MD Objective Remarks GENERAL: Well-developed well-nourished. In no acute distress. Oriented 2. SKIN: Warm and dry. Clean dressing on right heel HEENT: Normocephalic. Pupils equal and round. Mucous membranes pink and moist. CARDIOVASCULAR: Regular rate and rhythm. No murmur appreciated. RESPIRATORY: No accessory muscle use. Rales RLL. GASTROINTESTINAL: Abdomen soft, non-tender, nondistended. Bowel sounds x4. MUSCULOSKELETAL: Left lower extremity with Deonte wrap. No clubbing or cyanosis. + 2 foot edema. NEUROLOGICAL: Awake and alert. No focal neurological deficits. Moves upper and lower extremities spontaneously. Normal speech. A/P Problem List: (1) Encephalopathy ICD Code: G93.40 - Encephalopathy, unspecified Status: Acute (2) Wound infection ICD Code: T14.8XXA - Other injury of unspecified body region, initial encounter ; L08.9 - Local infection of the skin and subcutaneous tissue, unspecified Status: Acute (3) SAQIB (acute kidney injury) ICD Code: N17.9 - Acute kidney failure, unspecified Status: Acute (4) Anemia ICD Code: D64.9 - Anemia, unspecified (5) DM (diabetes mellitus) ICD Code: E11.9 - Type 2 diabetes mellitus without complications Status: Chronic Assessment and Plan 62-year-old female with a PMH of HTN, Hyperlipidemia, Chronic Back Pain, CAD and DM who was sent to the ER from SNF secondary to AMS and lateral lower extremity wounds. Acute Metabolic Encephalopathy: - Increasing confusion/agitation while at Rehab, awake and alert but + confusion on exam, waxes/wanes. Suspect secondary to acute infection, sepsis, cellulitis, bacteremia. - CT Head w/ no acute findings, remote lacunar infarct. Neuro checks q4h. Blood Cultures positive, see below. - Continue to monitor, patient seems to wax and wane. Possible underlying dementia component. - Psychiatry consulted for further evaluation. Recommends to continue Zoloft 100 mg, BuSpar 10 mg daily she was on this medication at home. Left Foot Diabetic Ulcer with Osteomyelitis: - previously admitted to [facility], s/p debridement and wound vac, sent to SNF with PICC on IV Vanco. Presented to [place] [facility] with worsening wound drainage/ odor. - CXR w/ PICC in good position. Continue w/ IV Vanc, Pharmacy consult to for dosing. - Consulted podiatry, recommended vascular surgery evaluation for amputation. - Consulted infectious disease, appreciate assistance. - Vascular surgery consulted and planning on AKA 08/07/17. Suspected Bacteremia: - 08/03 preliminary blood cultures with gram negative rods. Possible source osteomyelitis vs PICC related infection (present on admission). - Added IV Zosyn in addition to IV Vanco. - Repeat blood cultures NGTD - ID on board as above. SAQIB: Creatinine 1.92, previously 0.75 on 08/09/12, no recent labs for comparison. - Likely secondary to poor oral intake. - IV Fluids - Trend Renal indices. 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 Hemoglobin has been stable around 8. - Stable DM: Sliding scale with Accu-Cheks. Continue home medications. Agitation/depression: Secondary to infection and need for AKA as above. - Consult psychiatry recommends to continue home medication Zoloft 100 mg, BuSpar 10 mg daily Hyperkalemia: Mild, potassium 5.5 with hemolysis noted. EKG did not show any T- wave peaking. - Repeat Potassium level 4.3 DVT Prophylaxis: Heparin sq, hold for surgery Discussed with patient, , nursing Discharge Planning Plan to DC when cleared by vascular surgery possibly to SNF versus home with home PT. Patient was previously at the [facility] for short-term rehabilitation. Attending Statement This note was transcribed by jaime Montero I, Dr. Clive Espinoza personally performed the history, physical exam, and medical decision making; and confirmed the accuracy of the information in the transcribed note. Authenticated by Dr. Clive Espinoza 08/07/17 at 14:11. Problem Qualifiers (1) DM (diabetes mellitus): Qualified Codes: E11.42 - Type 2 diabetes mellitus with diabetic polyneuropathy ; Z79.4 - [facility] (current) use of insulin Ginny Casey Aug 07, 2017 13:31 Clive Espinoza MD Aug 07, 2017 17:07
[2017-08-07] MEDS ORDERED: SUGAMMADEX SODIUM 200 MG/2 ML VIAL IV PUSH ONE ×2 (13:59→15:21)
[2017-08-07] MEDS ORDERED: MORPHINE SULFATE 4 MG/ML INJ IV PUSH PRN (14:00)
[2017-08-07] MEDS: SERTRALINE HCL 100 MG TAB PO SCH (14:00)
--- NOTE | 2017-08-07 14:12 | PD.PSY.CON ---
Provisional Diagnosis Admission Date Aug 04, 2017 at 10:44 [place] I. Adjustment disorder with depressed mood, history of anxiety and depression [place] II. Deferred History of Present Illness Service Psychiatry Consult Requested By Medical team Reason for Consult Adjustment disorder with depression Primary Care Physician Unknown HPI The patient is a is a 62-year-old woman, domiciled with her , no kids, unemployed, with psychiatric history of anxiety, depression, alcohol use disorder in sustained full remission, no previous psychiatric hospitalizations, no previous suicidal attempts, she is on BuSpar 10 mg 3 times a day, Zoloft 100 mg, prescribed by PCP, with a medical history significant for uncontrolled diabetes type 2, CAD status post CABG, PAD, PVD, hypertension, hyperlipidemia, chronic back pain and diabetes ulcers. Patient presented to ED via EMS on 08/03/17 secondary to altered mental status and bilateral lower extremity wounds. Patient with a history of left foot chronic osteomyelitis for which she recently received treatment at [facility]. Patient was discharge to long-term facility for rehabilitation and IV antibiotic, from where she presented to ED. ED workup including head CT showing right frontal scalp swelling but no acute intracranial abnormalities. Remote lacunar infarct on the right. Chest x-ray revealing minimal basilar opacities, likely atelectasis. Laboratory workup revealing WBC 11.5, Hgb 8.9, platelet count 417. BUN/creatinine 38/1.92. Lactic acid 2.1. Infectious disease, Dr. Villegas consulted on 08/05/17. Patient with history of left heel wound for over 6 months, progressed to chronic osteomyelitis, positive MRSA wound cultures. Patient was recently treated at [facility] where she underwent wound debridement and placement of wound VAC. Patient was subsequently discharged to the [facility] for rehabilitation on IV antibiotics. Patient reports that she was at the [facility] for approximately 1 week prior to presenting to ED. Podiatry, Dr. Cheng consulted on . Amputation of left lower extremity recommended in order to achieve source control. Vascular surgeon, Dr. Melvin consulted on 08/05/17. Left AKA recommended, scheduled for 08/07/17 in the afternoon. The was consulted to psychiatry due to expressed depression and after the news of the amputation. Patient was seen today for psychiatric reevaluation. Her was at bedside , patient expressed her desire of her to be present. Documentation was reviewed, patient discussed with nursing charge. On psychiatric evaluation, patient is calm, cooperative and pleasant. She is in good spirits today. 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 Patient says that initially she was upset and very angry, but with hours and after reflection she has been calm her. She says that she understands not to to morn upon amputation that was unexpected "but I am still alive, and that is really the most important". She reports that she has several reasons to continue fighting for her life, she says that she has to be strong for her and her mother. She says that at times she feels guilty "because maybe I should have a more healthy life in the past, but is no worthy to think about that". Patient defines herself as a happy person, sometimes a little bit obsessive and perfectionistic, she tends to think about others rather than a herself in this can of occasions. At this moment she denies hopelessness, she denies helplessness, she denies worthlessness, she denies suicidal or homicidal ideation, she denies visual and auditory hallucinations. She is fully oriented 3, no attention deficit, no fluctuation of consciousness. Patient reports that she has been stable of her depression and anxiety with BuSpar 10 g daily and Zoloft 100 mg daily. She denies the use of alcohol or illicit drugs. He reports that she was an alcoholic, but she has been sober for 26 years. Review of Systems Constitutional: DENIES: Diaphoretic episodes, Fatigue, Fever, Weight gain, Weight loss, Chills, Dizziness, Change in appetite, Night Sweats Endocrine: DENIES: Abnorml menstrual pattern, Heat/cold intolerance, Polydipsia , Polyuria, Polyphagia Eyes: DENIES: Blurred vision, Diplopia, Eye inflammation, Eye pain, Vision loss , Photosensitivity, Double Vision Ears, nose, mouth, throat: DENIES: Tinnitus, Hearing loss, Vertigo, Nasal discharge, Oral lesions, Throat pain, Hoarseness, Ear Pain, Running Nose, Epistaxis, Sinus Pain, Toothache, Odynophagia Respiratory: DENIES: Apneas, Cough, Snoring, Wheezing, Hemoptysis, Sputum production, Shortness of breath Cardiovascular: DENIES: Chest pain, Palpitations, Syncope, Dyspnea on Exertion , PND, Lower Extremity Edema, Orthopnea, Claudication Gastrointestinal: DENIES: Abdominal pain, Black stools, Bloody stools, Constipation, Diarrhea, Nausea, Vomiting, Difficulty Swallowing, Anorexia Genitourinary: DENIES: Abnormal vaginal bleeding, Dysmenorrhea, Dyspareunia, Sexual dysfunction, Urinary frequency, Urinary incontinence, Urgency, Hematuria , Dysuria, Nocturia, Vaginal discharge Musculoskeletal: DENIES: Joint pain, Muscle aches, Stiffness, Joint Swelling, Back pain, Neck pain Integumentary: DENIES: Abnormal pigmentation, Pruritus, Rash, Nail changes, Breast masses, Breast skin changes, Nipple discharge Hematologic/lymphatic: DENIES: Bruising, Lymphadenopathy Immunologic/allergic: DENIES: Eczema, Urticaria Neurologic: DENIES: Abnormal gait, Headache, Localized weakness, Paresthesias, Seizures, Speech Problems, Tremor, Poor Balance Psychiatric: DENIES: Anxiety, Confusion, Mood changes, Depression, Hallucinations, Agitation, Suicidal Ideation, Homicidal Ideation, Delusions Past Family Social History Coded Allergies: Sulfa (Sulfonamide Antibiotics) (Unverified Allergy, Severe, Hives, ) ciprofloxacin (Unverified Allergy, Severe, Nausea/Vomiting, 08/03/17) vancomycin (Unverified Allergy, Severe, Hives, 08/03/17) Reported Medications Spironolactone (Spironolactone) 50 Mg Tab, 50 MG PO DAILY, #30 TAB 0 Refills 08/06/17 Sertraline (Sertraline) 100 Mg Tab, 100 MG PO DAILY, #30 TAB 0 Refills 08/06/17 Sennosides (Sennosides) 8.6 Mg Tab, 17.2 MG PO DAILY for Constipation, TAB 0 Refills 08/06/17 Oxycodone-Acetaminophen (Oxycodone-Acetaminophen) 5-325 mg Tab, 1 TAB PO Q4H Y for PAIN, TAB 0 Refills 08/06/17 Insulin Aspart Inj (Novolog Inj) 1,000 Unit/10 Ml Vial, 0 SQ DIRECTED for Blood Sugar Management, #10 ML 0 Refills Sliding Scale as directed. 08/06/17 Metoprolol Tartrate (Metoprolol Tartrate) 50 Mg Tab, 50 MG PO BID, #60 TAB 0 Refills 08/06/17 Lactobacillus Acidophilus (Lactobacillus Acidophilus) 1 Billion Cell Tab, 2 TAB PO BIDAC for Nutritional Supplement, #60 TAB 0 Refills 08/06/17 Insulin NPH Isophane-Reg (Human) 70-30 Inj (Humulin 70-30 Inj) 1,000 Unit/10 Ml Vial, 65 UNITS SQ BID 08/06/17 Gabapentin (Gabapentin) 100 Mg Cap, 100 MG PO DAILY, #60 CAP 0 Refills 08/06/17 Cyclobenzaprine (Flexeril) 5 Mg Tab, 5 MG PO DAILY for Muscle Spasm, #90 TAB 0 Refills 08/06/17 Losartan (Cozaar) 100 Mg Tab, 100 MG PO DAILY for Blood Pressure Management, # 30 TAB 0 Refills 08/06/17 Magnesium Citrate Liq (Citroma Liq) 300 Ml Liq, 300 ML PO DIRECTED, #1 BOTTLE 0 Refills 08/06/17 Buspirone (Buspirone) 10 Mg Tab, 10 MG PO DAILY for Anxiety, TAB 0 Refills 08/06/17 Bumetanide (Bumetanide) 2 Mg Tab, 2 MG PO DAILY, TAB 0 Refills 08/06/17 Bisacodyl Supp (Bisacodyl Supp) 10 Mg Supp, 10 MG RECTAL DAILY Y for CONSTIPATION, SUPP 0 Refills 08/06/17 Acetaminophen (Tylenol) 325 Mg Tab, 650 MG PO Q4H Y for PAIN SCALE 1 TO 10, TAB 0 Refills 08/06/17 Atorvastatin (Atorvastatin) 20 Mg Tab, 20 MG PO HS for Cholesterol Management, # 30 TAB 0 Refills 08/06/17 Aspirin (Aspirin) 81 Mg Chew, 81 MG CHEW DAILY, TAB 0 Refills 08/06/17 Amlodipine (Amlodipine) 2.5 Mg Tab, 2.5 MG PO DAILY for Blood Pressure Management, #30 TAB 0 Refills 08/06/17 Multiple Vitamin (Multivitamin) 1 Tab Tab, 1 TAB PO DAILY 08/09/12 [Humulin 70/30] No Conflict Check, 90 SC BIDAC 08/09/12 Discontinued Reported Medications Zinc Sulfate (Zinc Sulfate) Pow, 1 XX 08/09/12 Ergocalciferol (Vitamin D2) 2,000 Unit Tab, 2000 UNIT PO 08/09/12 Ascorbic Acid (Vitamin C) 500 Mg Cap, 500 MG PO 08/09/12 Insulin Human Regular (Novolin R) 100 Units/Ml Inj, 1000 UNITS .XX 08/09/12 Oxycodone-Acetaminophen 5-325 mg (Percocet 5-325 mg) 5 Mg/325 Mg Tab, 1 TAB PO Q4HPRN 08/09/12 Losartan Potassium (Cozaar) 100 Mg Tab, 100 MG PO DAILY 08/09/12 Metoprolol Succinate (Toprol Xl) 25 Mg Tabcr, 25 MG PO BID 08/09/12 Atorvastatin (Lipitor) 20 Mg Tab, 20 MG PO HS 08/09/12 Aspirin (Aspirin) 325 Mg Tab, 325 MG PO DAILY 08/09/12 Amlodipine Besylate (Norvasc) 5 Mg Tab, 5 MG PO DAILY 08/09/12 Current Medications Medications (Trade) Dose Ordered Sig/Gloria Route Start Time Stop Time Status Last Admin Sodium Chloride 1,000 ml @ 100 mls/hr Q10H IV 08/03/17 23:00 08/07/17 11:06 (NS Flush) 2 ml UNSCH PRN IV FLUSH 08/03/17 22:45 08/05/17 18:00 (NS Flush) 2 ml BID IV FLUSH 08/04/17 09:00 08/05/17 21:27 (Zofran Inj) 4 mg Q6H PRN IVP 08/03/17 22:45 08/04/17 14:52 (Heparin Inj) 5,000 units Q12H SQ 08/04/17 09:00 Future Hold 08/06/17 10:28 (Tylenol) 650 mg Q6H PRN PO 08/03/17 22:45 ([place] 5-325 Mg) 1 tab Q4H PRN PO 08/03/17 22:45 ([place] 10-325 Mg) 1 tab Q4H PRN PO 08/03/17 22:45 08/07/17 05:07 (Jenn-Colace) 1 tab BID PO 08/04/17 09:00 (Milk Of Magnesia Liq) 30 ml Q12H PRN PO 08/03/17 22:45 (Senokot) 17.2 mg Q12H PRN PO 08/03/17 22:45 (Dulcolax Supp) 10 mg DAILY PRN RECTAL 08/03/17 22:45 (Lactulose Liq) 30 ml DAILY PRN PO 08/03/17 22:45 (D50w (Vial) Inj) 50 ml UNSCH PRN IV PUSH 08/04/17 00:45 (Glucagon Inj) 1 mg UNSCH PRN OTHER 08/04/17 00:45 Pharmacy Profile Note 0 ml @ 0 mls/hr UNSCH OTHER 08/05/17 08:30 Vancomycin HCl 1250 mg/Sodium Chloride 262.5 ml @ 250 mls/hr Q24H IV 08/05/17 15:00 08/06/17 15:07 Miscellaneous Information SPECIFIC LAB TO BE DRAWN:VANCO TROUGH DATE TO BE DRElder.. ONCE ONCE .XX 08/07/17 14:45 08/07/17 14:46 (Lipitor) 20 mg HS PO 08/06/17 21:00 08/06/17 22:45 (Buspar) 10 mg DAILY PO 08/06/17 17:15 08/06/17 18:51 (Neurontin) 300 mg HS PO 08/06/17 21:00 08/06/17 22:45 (Lactinex) 1 tab Q12HR PO 08/06/17 21:00 08/06/17 22:45 (NovoLOG SUPPLEMENTAL SCALE) 1 ACHS SLIDING SCALE SQ 08/06/17 21:00 08/07/17 12:47 (Lopressor) 50 mg Q12HR PO 08/06/17 17:15 08/06/17 22:45 Lactated Ringer's 1,000 ml @ 30 mls/hr Q24H PRN IV 08/06/17 22:30 08/09/17 22:29 Sodium Chloride 500 ml @ 30 mls/hr [id number] PRN IV 08/06/17 22:30 08/09/17 22:29 (Betadine 5% Antisepsis Kit) 1 applic GEAR SHAVER SET UP OPERATOR PRN EACH NARE 08/06/17 22:30 08/09/17 22:29 (Chlorhexidine 2% Cloth) 3 pack GEAR SHAVER SET UP OPERATOR PRN TOPICAL 08/06/17 22:30 08/09/17 22:29 (Morphine Inj) 4 mg Q4H PRN IV PUSH 08/07/17 14:00 (Morphine Inj) 2 mg Q4H PRN IV PUSH 08/07/17 14:00 Piperacillin Sod/ Tazobactam Sod 50 ml @ 100 mls/hr Q6H IV 08/07/17 18:00 Family Psych History Patient denies family psychiatric history Social History Patient was born and raised in [place], [place], she spent part of her adolescence in [place], she was raised by her parents, she lives with her in [place], she has no kids, she is unemployed, her highest level of education is 2 years college. Patient's Strengths (min. 2) Patient is on psychotropics, supported her Physical Exam Overweight patient, no tremors, no psychomotor agitation or retardation, no EPS , no stiffness Vital Signs Vital Signs Date Time Temp Pulse Resp B/P (MAP) Pulse Ox O2 Delivery O2 Flow Rate FiO2 08/07/17 04:00 Room Air 08/07/17 04:00 98.1 67 20 163/76 (105) 97 I/O 08/07/17 08/07/17 08/08/17 08:00 16:00 00:00 Intake Total 340 ml Balance 340 ml Lab Results Test 08/07/17 06:16 Blood Urea Nitrogen 25 MG/DL Creatinine 1.54 MG/DL Random Glucose 280 MG/DL Calcium Level 8.5 MG/DL Sodium Level 137 MEQ/L Potassium Level 4.3 MEQ/L Chloride Level 103 MEQ/L Carbon Dioxide Level 25.4 MEQ/L Anion Gap 9 MEQ/L Estimat Glomerular Filtration Rate 34 ML/MIN Date/Time Source Procedure Growth Status 08/05/17 13:05 Blood Peripheral Aerobic Blood Culture - Preliminary NO GROWTH IN 2 DAYS Resulted 08/05/17 13:05 Blood Peripheral Anaerobic Blood Culture - Final QNS - SEE AEROBE REPORT Resulted Mental Status Examination Appearance: Appropriate Consciousness: Alert Orientation: x4 Motor Activity: Normal gait Speech: Unremarkable Language: Adequate Fund of Knowledge: Adequate Attention and Concentration: Adequate Memory: Unremarkable Mood: Appropriate Affect: Appropriate Thought Process & Associations: Intact Thought Content: Appropriate Hallucination Type: None Delusion Type: None Suicidal Ideation: No Suicidal Plan: No Suicidal Intention: No Homicidal Ideation: No Homicidal Plan: No Homicidal Intention: No Insight: Adequate Judgment: Adequate Assessment & Plan Problem List: (1) Adjustment disorder with depressed mood ICD Codes: F43.21 - Adjustment disorder with depressed mood Assessment & Plan: At the moment of this evaluation the patient is calm, cooperative, in a good spirits. She is logical, coherent and relevant. She does report mild to moderate sadness, symptoms of mourning, mild guiltiness, but she denies hopelessness, she denies helplessness, she denies worthlessness, denies suicidal and homicidal ideation, she denies visual and auditory hallucinations. No paranoia, no disorganized behavior or speech, no ideas of reference, no dick, no delirium symptoms present during this evaluation. She is oriented 3, no attention deficit, no fluctuation of consciousness are present. Current symptomatology seems to be secondary to adjustment disorder related with her amputation. Patient has identifiable very healthy coping skills, good protective factors, family and social support. She has been stable on psychotropics for many years. She does not meet criteria for psychiatric admission at this moment. She should continue in Zoloft 100 mg, restarted by me, BuSpar 10 mg daily. Brief supportive psychotherapy and psychoeducation provided. We'll continue follow-up. Assessment & Plan Estimated LOS: Kalyan Carrington MD Aug 07, 2017 14:12
[2017-08-07] MEDS ORDERED: PHARMACY ORDERED LAB ONE (14:45)
--- NOTE | 2017-08-07 15:23 | HHI.PR ---
cc: Hira Cheng DPM Immediate Post Op Note Procedure Date: Aug 07, 2017 Pre Op Diagnosis: necrotic calcaneal wound, non-ambulatory Post Op Diagnosis: necrotic calcaneal wound, non-ambulatory Surgeon: Curry Melvin [employer] Goods Sales Representative(s): Amie Pak Procedure: L AKA Findings: edematous tissue, no infection Complications: none Specimen(s) removed: L leg for pathology Estimated blood loss: 150mL Anesthesia: General Drains: None Fluids: 200mL IVF Patient to: PACU Patient Condition: Good Date/Time of Procedure: SEE SURGICAL CARE RECORD Curry Melvin MD Aug 07, 2017 15:23
--- NOTE | 2017-08-07 15:30 | HHI.PR ---
Addendum to Inpatient Note Additional Information Pt in OR. Continue same antibiotics post op. Will assess post op the antibiotic regimen type and duration. If any change in clinical condition please call sooner. Martha Villegas MD Aug 07, 2017 15:30
[2017-08-07] MEDS ORDERED: *HYDROmorphone PF 1 MG VIAL PERIprocedural Use ONLY ONE ×2 (15:40→16:13)
[2017-08-07] MEDS: VANCOMYCIN INJ 1,250 MG in SODIUM CHLOR 0.9% 250 ML INJ 250 ML IV SCH (16:00)
[2017-08-07 18:00] VITALS: BP 191/88; PULSE 81; RESP 22; TEMP 98.5; O2SAT 93
[2017-08-07] MEDS ORDERED: DO NOT ADM ANY ANTICOAGULANT DRUGS PRN (18:00)
[2017-08-07] MEDS: MORPHINE SULFATE 4 MG/ML INJ IV PUSH PRN ×2 (18:54→23:07)
[2017-08-07] MEDS: PIPERACIL-TAZO 2.25 GM PREMIX 50 ML IV SCH ×2 (18:59→23:07)
[2017-08-07 20:00] VITALS: BP 164/74; PULSE 82; PULSE 84; RESP 16; TEMP 98.1; O2SAT 96
[2017-08-07] MEDS: GABAPENTIN 300 MG CAP PO SCH (20:41)
[2017-08-07] MEDS: ATORVASTATIN 20 MG TAB PO SCH (20:41)
[2017-08-08] VITALS (7 sets, daily range): BP systolic 114–145; BP diastolic 54–72; PULSE 80–96; RESP 16–20; TEMP 97–98.6; O2SAT 92–98
[2017-08-08] MEDS: SODIUM CHLOR 0.9% 1000 ML INJ 1,000 ML IV SCH ×3 (03:00→21:57)
[2017-08-08] MEDS: MORPHINE SULFATE 4 MG/ML INJ IV PUSH PRN ×3 (04:31→17:21)
[2017-08-08] MEDS: PIPERACIL-TAZO 2.25 GM PREMIX 50 ML IV SCH ×2 (05:06→12:23)
--- NOTE | 2017-08-08 07:07 | MP ---
cc: MARGIE MELVIN MD DATE OF SURGERY 08/07/2017 PREOPERATIVE DIAGNOSIS Necrotic calcaneal wound, non-ambulatory. POSTOPERATIVE DIAGNOSIS Necrotic calcaneal wound, non-ambulatory. 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 Lowery is a 62-year-old lady who is non-ambulatory. She presented to the emergency department with a necrotic heel was that probed down to the calcaneal bone. She was taken to the operating room for above-knee amputation. DESCRIPTION OF THE PROCEDURE Informed consent was obtained from the patient. She was taken to the operating room, placed supine on the operating table and an appropriate time-out was taken to ensure the patient's identity, operative site and planned procedure. She was already on systemic vancomycin and Zosyn and these will be continued postoperatively with ongoing antibiotics. Everyone in the room agreed with the time-out and we proceeded. Her left leg was prepped and draped and an incision was made above the knee, carried down through the subcutaneous tissue with electrocautery. Intense edema was identified and we dissected through this without any difficulty. The muscle was divided. The femur was divided with an oscillating saw and the posterior muscle and fat was divided with electrocautery. The femoral vein and femoral artery were divided between hemoclips and suture ligated. The leg was passed off the table. The wound was irrigated, made hemostatic and closed with 2-0 Polysorb and skin sandy. The sponge and needle counts were correct at the end of the case. I was present, scrubbed and performed the entire procedure. MD OLENA Glover/GILBERT /4:17 PM /6:58 AM
--- NOTE | 2017-08-08 07:07 | MP ---
cc: MARGIE MELVIN MD DATE OF SURGERY 08/07/2017 PREOPERATIVE DIAGNOSIS Necrotic calcaneal wound, non-ambulatory. POSTOPERATIVE DIAGNOSIS Necrotic calcaneal wound, non-ambulatory. PROCEDURE Left above-knee amputation DATA Margie Melvin MD FOOTWEAR SALES LEADER SURGEON Amie Pak ANESTHESIA General INDICATIONS Ms. Lowery is a 62-year-old lady who is non-ambulatory. She presented to the emergency department with a necrotic heel was that probed down to the calcaneal bone. She was taken to the operating room for above-knee amputation. DESCRIPTION OF THE PROCEDURE Informed consent was obtained from the patient. She was taken to the operating room, placed supine on the operating table and an appropriate time-out was taken to ensure the patient's identity, operative site and planned procedure. She was already on systemic vancomycin and Zosyn and these will be continued postoperatively with ongoing antibiotics. Everyone in the room agreed with the time-out and we proceeded. Her left leg was prepped and draped and an incision was made above the knee, carried down through the subcutaneous tissue with electrocautery. Intense edema was identified and we dissected through this without any difficulty. The muscle was divided. The femur was divided with an oscillating saw and the posterior muscle and fat was divided with electrocautery. The femoral vein and femoral artery were divided between hemoclips and suture ligated. The leg was passed off the table. The wound was irrigated, made hemostatic and closed with 2-0 Polysorb and skin sandy. The sponge and needle counts were correct at the end of the case. I was present, scrubbed and performed the entire procedure. MD OLENA Glover/GILBERT /4:17 PM /6:58 AM
[2017-08-08] MEDS: DOCUSATE SODIUM 50 MG/SENNA 8.6 MG TAB PO SCH ×2 (08:51→21:56)
[2017-08-08] MEDS: busPIRone HCL 10 MG TAB PO SCH (08:51)
[2017-08-08] MEDS: METOPROLOL TARTRATE 50 MG TAB PO SCH ×2 (08:51→21:56)
[2017-08-08] MEDS: ACETAMINOPHEN/HYDROcodone 325 MG/10 MG TAB PO PRN ×2 (08:53→15:56)
[2017-08-08] MEDS: INSULIN ASPART SUPPLEMENTAL SCALE SQ SCH ×4 (08:54→21:00)
[2017-08-08] MEDS: LACTOBACILLUS ACIDOPHILUS TAB PO SCH ×2 (08:54→21:54)
[2017-08-08] MEDS: SODIUM CHLORIDE 0.9% FLUSH 10 ML FLUSH IV FLUSH SCH ×2 (08:54→21:57)
[2017-08-08] MEDS: SERTRALINE HCL 100 MG TAB PO SCH (08:55)
[2017-08-08 10:19] LABS: HEMATOCRIT 25.5 % (35.0-46.0); HEMOGLOBIN 7.8 GM/DL (11.6-15.3); MEAN CELL VOLUME 84.2 FL (80.0-100.0); MEAN CORPUSCULAR HEMOGLOBIN 25.9 PG (27.0-34.0); MEAN CORPUSCULAR HGB CONC 30.8 % (32.0-36.0); MEAN PLATELET VOLUME 7.6 FL (7.0-11.0); PLATELET COUNT 516 TH/MM3 (150-450); RED BLOOD COUNT 3.03 MIL/MM3 (4.00-5.30); RED CELL DISTRIBUTION WIDTH 18.3 % (11.6-17.2); WHITE BLOOD COUNT 11.9 TH/MM3 (4.0-11.0)
[2017-08-08 10:27] LABS: BICARBONATE 23.8 MEQ/L (21.0-32.0); CALCIUM 8.7 MG/DL (8.5-10.1); CREATININE 1.36 MG/DL (0.50-1.00)
--- NOTE | 2017-08-08 14:26 | ECHRPT ---
Indication: endocarditis CONCLUSIONS The left ventricular systolic function is mildly reduced with an estimated ejection fraction in the range of 45- 50%. The proximal and mid inferior wall is akinetic. Normal left ventricular size. Mild mitral annular calcification. Mild mitral valve regurgitation. Mild aortic valve sclerosis. No aortic valve regurgitation. There is trace tricuspid valve regurgitation. The estimated pulmonary arterial pressure is 53.3 mmHg. The inferior vena cava was not well visualized. BP: / HR: Rhythm: MEASUREMENTS (Male / Female) Normal Values Technical Quality:Technically difficult study 2D ECHO LV Diastolic Diameter PLAX 5.5 cm 4.2 - 5.9 / 3.9 - 5.3 cm LV Systolic Diameter PLAX 4.5 cm IVS Diastolic Thickness 1.5 cm 0.6 - 1.0 / 0.6 - 0.9 cm LVPW Diastolic Thickness 1.0 cm 0.6 - 1.0 / 0.6 - 0.9 cm LV Relative Wall Thickness 0.4 RV Internal Dim ED PLAX 2.5 cm M-MODE Aortic Root Diameter MM 3.5 cm LA Systolic Diameter MM 3.8 cm LA Ao Ratio MM 1.1 AV Cusp Separation MM 1.6 cm DOPPLER Mitral E Point Velocity 109.0 cm/s Mitral A Point Velocity 99.7 cm/s Mitral E to A Ratio 1.1 LV E' Lateral Velocity 5.3 cm/s Mitral E to LV E' Lateral Ratio 20.7 LV E' Septal Velocity 4.4 cm/s Mitral E to LV E' Septal Ratio 24.8 TR Peak Velocity 329.0 cm/s TR Peak Gradient 43.3 mmHg Right Atrial Pressure 10.0 mmHg Pulmonary Artery Systolic Pressu 53.3 mmHg Right Ventricular Systolic Press 53.3 mmHg FINDINGS LEFT VENTRICLE The left ventricular systolic function is mildly reduced with an estimated ejection fraction in the range of 45- 50%. The proximal and mid inferior wall is akinetic. Normal left ventricular size. RIGHT VENTRICLE Normal right ventricular size and systolic function. LEFT ATRIUM The left atrial size is normal. RIGHT ATRIUM The right atrial size is normal. ATRIAL SEPTUM Normal atrial septal thickness without atrial level shunting by limited color doppler interrogation. AORTA The aortic root and proximal ascending aorta are normal in size on limited imaging. MITRAL VALVE Mild mitral annular calcification. Mild mitral valve regurgitation. AORTIC VALVE Trileaflet aortic valve. Mild aortic valve sclerosis. No aortic valve regurgitation. TRICUSPID VALVE Structurally normal tricuspid valve. There is trace tricuspid valve regurgitation. The estimated pulmonary arterial pressure is 53.3 mmHg. PULMONARY VALVE No pulmonary valve regurgitation or stenosis. VESSELS The inferior vena cava was not well visualized. PERICARDIUM No pericardial effusion. Angel Luis Pak MD (Electronically Signed) Final Date:08 August 2017 14:25
[2017-08-08] MEDS ORDERED: PHARMACY ORDERED LAB ONE (14:45)
--- NOTE | 2017-08-08 15:11 | HHI.HCPN ---
Reason for visit a. To assist with evaluation and management of symptoms including: Pain, debility. b. To assist medical decision maker(s) with: better understanding of current medical conditions; weighing benefits/burdens of medical treatment options; making medical treatment decisions. . Subjective/Interval History Mrs. Carbajal is a 62-year-old female with a medical history significant for uncontrolled diabetes type 2, CAD status post CABG, PAD, PVD, hypertension, hyperlipidemia, chronic back pain and diabetes ulcers. Patient with history of left heel wound for over 6 months, progressed to chronic osteomyelitis, positive MRSA wound cultures. Patient was recently treated at [facility] where she underwent wound debridement and placement of wound VAC. Patient was subsequently discharged to the [facility] SNF for rehabilitation on IV antibiotics. Palliative care consulted for clarifications of goals of care. Patient underwent left AKA on 08/07/[address] Melvin. No complications reported. Patient was seen in medical floor, she was resting in bed in no acute distress. Sleepy. Alert to self x place and situation. Intermittent confusion. Patient denies pain, shortness of breath or abdominal discomfort. at bedside. He reports that patient ate most of her lunch today. Laboratory workup today revealing WBC 11.9, Hgb 7.8, platelet count 516. BUN/ creatinine 19/1.36. Random glucose 246. Patient afebrile, stable hemodynamically. Currently tolerating O2 via nasal cannula at 2 L. No new imaging for review. Secured community DNR signed by patient on 07/26/17 while undergoing rehabilitation at the [facility]. Patient wishing to reinstate DNR/DNI CODE STATUS , at bedside and supportive of patient's wishes. Telephone conversation with Nohemi VELASQUEZ/Dr. Melvin who was informed of the above. Okay to reinstate DNR/DNI code status. Patient's tells me that patient does not wish to return to the [facility] rehabilitation, they are looking into [facility] home and rehabilitation with likely transition to long-term placement. Pending PT evaluation for recommendations. . Family/friend interactions See interval note. . Advance Directives Living Will: Never completed Health Care Surrogate: Never completed Durable Power of Personal Driver: Never completed Advance Directive Specifics Health Care Surrogate(s): No advance directives completed. As per [place] statute, healthcare proxy decision making falls to patient's Maciej Carbajal. . Significant change in goals: No code. DNR/DNI. Continue current aggressive management short of no code. Likely to discharge to long-term facility. . Objective Vital Signs Date Time Temp Pulse Resp B/P (MAP) Pulse Ox O2 Delivery O2 Flow Rate FiO2 08/08/17 12:00 97.0 81 20 119/63 (81) 95 08/08/17 08:00 97.9 95 20 145/68 (93) 92 08/08/17 08:00 96 08/08/17 04:00 Nasal Cannula 2.00 08/08/17 04:00 98.6 91 17 143/72 (95) 95 08/08/17 00:30 98.1 82 16 127/60 (82) 98 08/08/17 00:00 Nasal Cannula 2.00 08/07/17 20:00 98.1 84 16 164/74 (104) 96 08/07/17 20:00 82 08/07/17 19:00 Room Air 08/07/17 18:00 98.5 81 22 191/88 (122) 93 08/07/17 17:45 74 16 148/57 (87) 100 Nasal Cannula 2 08/07/17 17:30 74 16 154/70 (98) 100 Nasal Cannula 2 08/07/17 17:15 80 16 152/69 (96) 100 Nasal Cannula 2 08/07/17 17:00 77 16 148/67 (94) 100 Nasal Cannula 2 08/07/17 16:43 16 08/07/17 16:30 74 16 154/68 (96) 100 Nasal Cannula 2 08/07/17 16:15 81 16 163/73 (103) 100 Nasal Cannula 2 08/07/17 16:10 14 08/07/17 16:00 79 16 103/68 (80) 100 Nasal Cannula 2 08/07/17 15:45 81 16 120/75 (90) 100 Nasal Cannula 2 08/07/17 15:38 98.6 80 16 114/80 (91) 100 Nasal Cannula 2 Intake & Output 08/08/17 08/08/17 07:00 19:00 Intake Total 1100 ml Balance 1100 ml IV Total 1100 ml # Voids 1 Physical Exam CONSTITUTIONAL/GENERAL: This is an obese, ill appearing woman resting in bed in no acute distress. Patient looks older than stated age. TUBES/LINES/DRAINS: PIV's. SKIN: No jaundice. Not diaphoretic. Erythema to right lower extremity. Left AKA, stump wrapped in Deonte wrap. HEAD: Atraumatic. Normocephalic. EYES: Pupils equal and round and reactive. Bilateral cataracts. Extraocular motions intact. No scleral icterus. No injection or drainage. Large right periorbital ecchymosis. ENT: Hearing grossly normal. Nose without bleeding or purulent drainage. Poor dentition, moist oral mucosa. NECK: Trachea midline. Supple, nontender. CARDIOVASCULAR: Regular rate and rhythm. Edema to bilateral lower extremities, left more than right. RESPIRATORY/CHEST: Symmetric, unlabored respirations. Clear, diminished to auscultation. Breath sounds equal bilaterally. GASTROINTESTINAL: Abdomen obese, large, round, soft, nontender. No guarding. Bowel sounds present. GENITOURINARY: Without palpable bladder distension. MUSCULOSKELETAL: Erythema, edema to bilateral lower extremities. Left AKA. Right foot with fifth digit amputation. NEUROLOGICAL: Awake and alert x self, place and situation. Intermittently confused. Follows commands. Moves all extremities. PSYCHIATRIC: Calm. . Diagnostic Tests Laboratory Laboratory Tests Test 08/05/17 17:47 08/06/17 11:57 08/07/17 06:16 08/08/17 09:18 Potassium Level 5.5 MEQ/L (3.5-5.1) 5.4 MEQ/L (3.5-5.1) 4.3 MEQ/L (3.5-5.1) 4.5 MEQ/L (3.5-5.1) C-Reactive Protein 21.00 MG/DL (0.00-0.30) White Blood Count 7.4 TH/MM3 (4.0-11.0) 11.9 TH/MM3 (4.0-11.0) Red Blood Count 3.19 MIL/MM3 (4.00-5.30) 3.03 MIL/MM3 (4.00-5.30) Hemoglobin 8.3 GM/DL (11.6-15.3) 7.8 GM/DL (11.6-15.3) Hematocrit 26.3 % (35.0-46.0) 25.5 % (35.0-46.0) Mean Corpuscular Volume 82.5 FL (80.0-100.0) 84.2 FL (80.0-100.0) Mean Corpuscular Hemoglobin 26.0 PG (27.0-34.0) 25.9 PG (27.0-34.0) Mean Corpuscular Hemoglobin Concent 31.5 % (32.0-36.0) 30.8 % (32.0-36.0) Red Cell Distribution Width 18.2 % (11.6-17.2) 18.3 % (11.6-17.2) Platelet Count 380 TH/MM3 (150-450) 516 TH/MM3 (150-450) Mean Platelet Volume 7.4 FL (7.0-11.0) 7.6 FL (7.0-11.0) Blood Urea Nitrogen 29 MG/DL (7-18) 25 MG/DL (7-18) 19 MG/DL (7-18) Creatinine 1.38 MG/DL (0.50-1.00) 1.54 MG/DL (0.50-1.00) 1.36 MG/DL (0.50-1.00) Random Glucose 245 MG/DL (74-106) 280 MG/DL (74-106) 246 MG/DL (74-106) Calcium Level 8.4 MG/DL (8.5-10.1) 8.5 MG/DL (8.5-10.1) 8.7 MG/DL (8.5-10.1) Sodium Level 135 MEQ/L (136-145) 137 MEQ/L (136-145) 135 MEQ/L (136-145) Chloride Level 102 MEQ/L (98-107) 103 MEQ/L (98-107) 102 MEQ/L (98-107) Carbon Dioxide Level 24.9 MEQ/L (21.0-32.0) 25.4 MEQ/L (21.0-32.0) 23.8 MEQ/L (21.0-32.0) Anion Gap 8 MEQ/L (5-15) 9 MEQ/L (5-15) 9 MEQ/L (5-15) Estimat Glomerular Filtration Rate 39 ML/MIN (>89) 34 ML/MIN (>89) 39 ML/MIN (>89) Result Diagram: 08/08/1791708/08/17917 Procedures 08/07/17- left [id number] amputation. . Assessment and Plan Disease Oriented Problem List: (1) Bacteremia (2) Osteomyelitis of ankle (3) MRSA (methicillin resistant staph aureus) culture positive (4) SAQIB (acute kidney injury) (5) Diabetes mellitus type 2, uncontrolled, with complications (6) Physical deconditioning Symptom Scale: (1) Pain 0-10 Scale: 0 Comment: Acute on chronic (2) Debility 0-10 Scale: Unable to quantify Comment: Progressive decline Pertinent Non-Medical Issues Psychosocial: Patient was born in [place]. Grew up in [place]. Moved to [place] in 1992. Has been to for the past 26 years, they have no children. 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 Spiritual: No yazidi affiliation. Legal: No advance directives completed. Ethical issues impacting care: No ethical issues identified. . Important Contacts Maciej Carbajal . Friend/neighbor Laila Bella . . Prognosis Mrs. Carbajal is a 62-year-old female with a medical history significant for uncontrolled diabetes type 2, CAD status post CABG, PAD, PVD, hypertension, hyperlipidemia, chronic back pain and diabetes ulcers. Patient with history of left heel wound for over 6 months, progressed to chronic osteomyelitis, positive MRSA wound cultures. Patient was recently treated at [facility] where she underwent wound debridement and placement of wound VAC. Patient now presented with bacteremia, sepsis requiring amputation of left lower extremity for source control. Patient is a very high risk for further complications, continue decline and given multiple ongoing chronic comorbidities, acute infection and profound physical deconditioning. . Code Status: No Code Plan * CODE STATUS: NO CODE. DNR/DNI. Patient with community DNR signed on 07/26/17 , requesting to be reinstated. in agreement. This request was reviewed with Nohemi VELASQUEZ/Dr. Melvin. * HEALTHCARE DECISION-MAKING: Patient participating in medical decision-making. She appears to have fair understanding of her complicated medical issues and retains the ability to weight benefits versus burdens of treatment options. Intermittent forgetfulness/confusion, appears to be resolving. No advance directives completed. As per [place] statute, healthcare proxy decision-making falls to patient's Maciej Carbajal. Palliative care recommends shared decision-making with at this time given intermittent forgetfulness/ confusion. * GOALS OF CARE: Patient electing to continue aggressive management short of NO code given multiple chronic ongoing comorbidities and physical deconditioning. Pending PT evaluation for recommendations, will likely require SNF for rehabilitation, likely transition to long-term placement given higher level of needs. w/c bound with multiple chronic issues of his own, verbalized no longer being able to care for patient at home. is supportive of patient' s wishes. * SYMPTOMS: = Pain, acute on chronic. History of chronic low back and right hip pain, acute pain secondary to lower extremities infection/AKA. Home regimen of Percocet 5/325mg q4hr PRN and [place] 10/325mg also available as needed. Received 1 dose of 10/325mg earlier this morning with good effect. Morphine 2-4 mg available as needed. Received 2 dose of 4 mg with good effect. Patient verbalized pain controlled with current management. = Debility, progressive. Worsening for the past year. Likely to require rehabilitation upon discharge. = Constipation: Secondary to opiate use and bedrest. Jenn- Colace twice a day, milk of magnesia, Senokot, Dulcolax suppository and lactulose available as needed. Last bowel movement 08/07/17. * Case reviewed with bedside RN and Nohemi VELASQUEZ/Dr. Melvin. * Palliative care contact information has been provided to patient and . * Palliative care will continue to follow-up for further clarifications of goals of care as patient's clinical course continues to evolve. . Time Spent Total Floor Time (mins): 41 (Total time to include review medical records, physical exam, goals of care conversation with patient and , case review with bedside RN and vascular surgery.) >50% Counseling/Coord of Care: Yes Attestation To help prompt me to consider important information that might be impacting today's encounter and assessment, information from prior notes written by myself or my colleagues may have been "brought forward" into today's note. My signature on this note, however, is an attestation that I personally performed the exam, history, and/or decision-making noted today, and, unless otherwise indicated, the interactions with patient, family, and staff as well as the review of records all occurred today. I also attest that the listed assessment and stated plan reflect my best clinical judgment today based on the combination of historical information, prior notes, and today's exam/ interactions. When time spent is documented, it refers only to time spent today by the signer, or if indicated, combined time spent today by collaborating physician/nurse practitioner. Ebony Garcia Aug 08, 2017 15:11
--- NOTE | 2017-08-08 16:15 | HHI.PR ---
Addendum to Inpatient Note Addendum Reason: Additional Documentation Additional Information d/w RN and Clinically doing well post op. s/p Left above knee amputation and complete resection of osteomyelitis area. Ok to DC PICC line as not needed from ID standpoint. D.w quality assurance test program manager to address continuing need of PICC line. For Prevotella bacteremia: Flagyl for another 10 days stop date entered in [facility]AR. Will sign off please call back if any change in clinical condition or questions. Martha Villegas MD Aug 08, 2017 16:15
--- NOTE | 2017-08-08 16:15 | HHI.PR ---
Addendum to Inpatient Note Addendum Reason: Additional Documentation Additional Information d/w RN and Clinically doing well post op. s/p Left above knee amputation and complete resection of osteomyelitis area. Ok to DC PICC line as not needed from ID standpoint. D.w special needs tutor to address continuing need of PICC line. For Prevotella bacteremia: Flagyl for another 10 days stop date entered in EMAR. Will sign off please call back if any change in clinical condition or questions. Martha Villegas MD Aug 08, 2017 16:15
--- NOTE | 2017-08-08 16:15 | HHI.PR ---
Addendum to Inpatient Note Addendum Reason: Additional Documentation Additional Information d/w RN and Clinically doing well post op. s/p Left above knee amputation and complete resection of osteomyelitis area. Ok to DC PICC line as not needed from ID standpoint. D.w extermination inspector to address continuing need of PICC line. For Prevotella bacteremia: Flagyl for another 10 days stop date entered in EMAR. Will sign off please call back if any change in clinical condition or questions. Martha Villegas MD Aug 08, 2017 16:15
--- NOTE | 2017-08-08 16:58 | HHI.PR ---
Subjective Remarks Resting comfortably in bed No event overnight Denied chest and or short of breath No fever or chills Objective Vitals Vital Signs Date Time Temp Pulse Resp B/P (MAP) Pulse Ox O2 Delivery O2 Flow Rate FiO2 08/08/17 12:00 97.0 81 20 119/63 (81) 95 08/08/17 08:00 97.9 95 20 145/68 (93) 92 08/08/17 08:00 96 08/08/17 04:00 Nasal Cannula 2.00 08/08/17 04:00 98.6 91 17 143/72 (95) 95 08/08/17 00:30 98.1 82 16 127/60 (82) 98 08/08/17 00:00 Nasal Cannula 2.00 08/07/17 20:00 98.1 84 16 164/74 (104) 96 08/07/17 20:00 82 08/07/17 19:00 Room Air 08/07/17 18:00 98.5 81 22 191/88 (122) 93 08/07/17 17:45 74 16 148/57 (87) 100 Nasal Cannula 2 08/07/17 17:30 74 16 154/70 (98) 100 Nasal Cannula 2 08/07/17 17:15 80 16 152/69 (96) 100 Nasal Cannula 2 08/07/17 17:00 77 16 148/67 (94) 100 Nasal Cannula 2 I/O 08/07/17 08/07/17 08/07/17 08/08/17 08/08/17 08/08/17 07:00 15:00 23:00 07:00 15:00 23:00 Intake Total 340 ml 200 ml 1100 ml Output Total 600 ml Balance 340 ml -400 ml 1100 ml Intake Oral 240 ml 0 ml IV Total 100 ml 1100 ml Other 200 ml Output Urine Total 450 ml Stool Total 0 ml Estimated Blood Loss 150 ml # Voids 1 1 Result Diagram: 08/08/1791708/08/17917 Objective Remarks GENERAL: Well-developed well-nourished. In no acute distress. Oriented 2. SKIN: Warm and dry. Clean dressing on right heel HEENT: Normocephalic. Pupils equal and round. Mucous membranes pink and moist. CARDIOVASCULAR: Regular rate and rhythm. No murmur appreciated. RESPIRATORY: No accessory muscle use. Rales RLL. GASTROINTESTINAL: Abdomen soft, non-tender, nondistended. Bowel sounds x4. MUSCULOSKELETAL: Left lower extremity with Deonte wrap. No clubbing or cyanosis. + 2 foot edema. NEUROLOGICAL: Awake and alert. No focal neurological deficits. Moves upper and lower extremities spontaneously. Normal speech. A/P Problem List: (1) Encephalopathy ICD Code: G93.40 - Encephalopathy, unspecified Status: Acute (2) Wound infection ICD Code: T14.8XXA - Other injury of unspecified body region, initial encounter ; L08.9 - Local infection of the skin and subcutaneous tissue, unspecified Status: Acute (3) SAQIB (acute kidney injury) ICD Code: N17.9 - Acute kidney failure, unspecified Status: Acute (4) Anemia ICD Code: D64.9 - Anemia, unspecified (5) DM (diabetes mellitus) ICD Code: E11.9 - Type 2 diabetes mellitus without complications Status: Chronic Assessment and Plan 08/08: Discussed with plan to treat bacterial infection with 14 days of Flagyl they signed off, creatinine improved to 1.36, hemoglobin 7.3 I will repeat H&H in a.m. A/P: 62-year-old female with a PMH of HTN, Hyperlipidemia, Chronic Back Pain, CAD and DM who was sent to the ER from SNF secondary to AMS and lateral lower extremity wounds. Acute Metabolic Encephalopathy: - Increasing confusion/agitation while at Rehab, awake and alert but + confusion on exam, waxes/wanes. Suspect secondary to acute infection, sepsis, cellulitis, bacteremia. - CT Head w/ no acute findings, remote lacunar infarct. Neuro checks q4h. Blood Cultures positive, see below. - Continue to monitor, patient seems to wax and wane. Possible underlying dementia component. - Psychiatry consulted for further evaluation. Recommends to continue Zoloft 100 mg, BuSpar 10 mg daily she was on this medication at home. Left Foot Diabetic Ulcer with Osteomyelitis: - previously admitted to [facility], s/p debridement and wound vac, sent to SNF with PICC on IV Vanco. Presented to [facility] with worsening wound drainage/ odor. - CXR w/ PICC in good position. Continue w/ IV Vanc, Pharmacy consult to for dosing. - Consulted podiatry, recommended vascular surgery evaluation for amputation. - Consulted infectious disease, appreciate assistance. - Vascular surgery consulted and planning on AKA 08/07/17. Suspected Bacteremia: - 08/03 preliminary blood cultures with gram negative rods. Possible source osteomyelitis vs PICC related infection (present on admission). - Added IV Zosyn in addition to IV Vanco. - Repeat blood cultures NGTD - ID on board as above. SAQIB: Creatinine 1.92, previously 0.75 on 08/09/12, no recent labs for comparison. - Likely secondary to poor oral intake. - IV Fluids - Trend Renal indices. NETWORKS COMPUTER CONSULTANT 1.56 --> 1.38 --> 1.54 Normocytic Anemia: Likely from infection. Hemoglobin has been stable around 8. - Stable DM: Sliding scale with Accu-Cheks. Continue home medications. Agitation/depression: Secondary to infection and need for AKA as above. - Consult psychiatry recommends to continue home medication Zoloft 100 mg, BuSpar 10 mg daily Hyperkalemia: Mild, potassium 5.5 with hemolysis noted. EKG did not show any T- wave peaking. 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
[2017-08-08] MEDS: metroNIDAZOLE 500 MG TAB PO SCH ×2 (18:10→21:56)
[2017-08-08] MEDS: ATORVASTATIN 20 MG TAB PO SCH (21:54)
[2017-08-08] MEDS: GABAPENTIN 300 MG CAP PO SCH (21:56)
[2017-08-09] VITALS (7 sets, daily range): BP systolic 99–129; BP diastolic 53–80; PULSE 64–82; RESP 17–20; TEMP 97–97.9; O2SAT 90–96
[2017-08-09] MEDS: metroNIDAZOLE 500 MG TAB PO SCH ×3 (05:32→22:49)
[2017-08-09] MEDS: ACETAMINOPHEN/HYDROcodone 325 MG/10 MG TAB PO PRN ×3 (05:33→22:51)
[2017-08-09] MEDS: INSULIN ASPART SUPPLEMENTAL SCALE SQ SCH ×4 (08:00→21:00)
[2017-08-09] MEDS: SODIUM CHLOR 0.9% 1000 ML INJ 1,000 ML IV SCH (09:00)
[2017-08-09] MEDS: SODIUM CHLORIDE 0.9% FLUSH 10 ML FLUSH IV FLUSH SCH ×2 (09:00→21:00)
[2017-08-09] MEDS: LACTOBACILLUS ACIDOPHILUS TAB PO SCH ×2 (10:27→21:00)
[2017-08-09] MEDS: DOCUSATE SODIUM 50 MG/SENNA 8.6 MG TAB PO SCH ×2 (10:27→22:49)
[2017-08-09] MEDS: SERTRALINE HCL 100 MG TAB PO SCH (10:27)
[2017-08-09] MEDS: busPIRone HCL 10 MG TAB PO SCH (10:27)
[2017-08-09] MEDS: METOPROLOL TARTRATE 50 MG TAB PO SCH ×2 (10:27→22:48)
--- NOTE | 2017-08-09 10:43 | HHI.PR ---
Subjective Remarks No acute events overnight. Afebrile, vital signs stable. Patient with no complaints this morning. Denies pain. Denies nausea/vomiting. Objective Vitals Vital Signs Date Time Temp Pulse Resp B/P (MAP) Pulse Ox O2 Delivery O2 Flow Rate FiO2 08/09/17 05:22 97.9 73 18 116/80 (92) 95 08/09/17 04:00 Nasal Cannula 2.00 Humidified 08/09/17 00:25 97.8 82 17 117/53 (74) 96 08/09/17 00:00 Nasal Cannula 2.00 Humidified 08/08/17 21:25 98.0 80 17 114/54 (74) 94 08/08/17 20:45 Nasal Cannula 2.00 Humidified 08/08/17 20:00 84 08/08/17 16:00 97.0 82 20 122/62 (82) 97 08/08/17 12:00 97.0 81 20 119/63 (81) 95 I/O 08/08/17 08/08/17 08/08/17 08/09/17 08/09/17 08/09/17 07:00 15:00 23:00 07:00 15:00 23:00 Intake Total 1100 ml 50 ml 720 ml Output Total 800 ml Balance 1100 ml 50 ml -80 ml Intake Oral 720 ml IV Total 1100 ml 50 ml Output Urine Total 800 ml # Voids 1 2 # Bowel Movements 0 Result Diagram: 08/08/1791708/08/17917 Objective Remarks GENERAL: Well-developed well-nourished. In no acute distress. SKIN: Warm and dry. Clean dressing on right heel HEENT: Normocephalic. Pupils equal and round. Mucous membranes pink and moist. CARDIOVASCULAR: Regular rate and rhythm. No murmur appreciated. RESPIRATORY: No accessory muscle use. Clear to auscultation bilaterally in anterior chairez. GASTROINTESTINAL: Abdomen soft, non-tender, nondistended. Bowel sounds x4. MUSCULOSKELETAL: Left lower extremity with Deonte wrap status post AKA. No clubbing or cyanosis. +2 foot edema of right foot. NEUROLOGICAL: Awake and alert. No focal neurological deficits. Moves upper and lower extremities spontaneously. Normal speech. A/P Problem List: (1) Encephalopathy ICD Code: G93.40 - Encephalopathy, unspecified Status: Acute (2) Wound infection ICD Code: T14.8XXA - Other injury of unspecified body region, initial encounter ; L08.9 - Local infection of the skin and subcutaneous tissue, unspecified Status: Acute (3) SAQIB (acute kidney injury) ICD Code: N17.9 - Acute kidney failure, unspecified Status: Acute (4) Anemia ICD Code: D64.9 - Anemia, unspecified (5) DM (diabetes mellitus) ICD Code: E11.9 - Type 2 diabetes mellitus without complications Status: Chronic Assessment and Plan 62-year-old female with a PMH of HTN, Hyperlipidemia, Chronic Back Pain, CAD and DM who was sent to the ER from SNF secondary to AMS and lateral lower extremity wounds. Acute Metabolic Encephalopathy - Resolved: - Increasing confusion/agitation while at Rehab. Suspect secondary to acute infection, sepsis, cellulitis, bacteremia. - CT Head w/ no acute findings, remote lacunar infarct. - Blood Cultures positive, see below. - Continue to monitor, patient seems to wax and wane. Possible underlying dementia component. - Psychiatry consulted for further evaluation. Recommends to continue Zoloft 100 mg, BuSpar 10 mg daily she was on this medication at home. Left Foot Diabetic Ulcer with Osteomyelitis: - previously admitted to [facility], s/p debridement and wound vac, sent to [facility] with PICC on IV Vanco. Presented to [place] with worsening wound drainage/ odor. - CXR w/ PICC in good position. Continue w/ IV Vanc, Pharmacy consult to for dosing. - Consulted infectious disease, appreciate assistance. - s/p AKA on 08/07 by vascular surgery Suspected Bacteremia: - 08/03 1/2 cx positive for Prevotella, repeat BCx on 08/05 NGx3 days - s/p Vanc/Zosyn - ID consulted, recommend Flagyl x 10 days SAQIB: Creatinine 1.92, previously 0.75 on 08/09/12, no recent labs for comparison. - Likely secondary to poor oral intake. - IV Fluids - Trend Renal indices. Cr today 1.36 Normocytic Anemia: Likely from infection. Hemoglobin has been stable around 8. - Stable DM: Sliding scale with Accu-Cheks. Continue home medications. Agitation/depression: Secondary to infection and need for AKA as above. - Consult psychiatry recommends to continue home medication Zoloft 100 mg, BuSpar 10 mg daily Hyperkalemia - resolved - Mild, potassium 5.5 with hemolysis noted. EKG did not show any T-wave peaking. - Repeat Potassium level 4.3 DVT Prophylaxis: Heparin sq Discharge Planning Pending recommendations from Vasc surg; patient will likely need rehab. PT ordered. Problem Qualifiers (1) DM (diabetes mellitus): Qualified Codes: E11.42 - Type 2 diabetes mellitus with diabetic polyneuropathy ; Z79.4 - halfway (current) use of insulin Lyric Nayak MD Aug 09, 2017 10:43
[2017-08-09 10:59] LABS: AUTOMATED NEUTROPHIL # 8.5 TH/MM3 (1.8-7.7); BASOPHIL # 0.1 TH/MM3 (0-0.2); BASOPHIL % 1.1 % (0.0-2.0); EOSINOPHIL # 0.2 TH/MM3 (0-0.4); EOSINOPHIL % 1.9 % (0.0-4.0); HEMATOCRIT 23.9 % (35.0-46.0); HEMOGLOBIN 7.5 GM/DL (11.6-15.3); LYMPH % 14.8 % (9.0-44.0); LYMPHOCYTE # 1.7 TH/MM3 (1.0-4.8); MEAN CELL VOLUME 84.6 FL (80.0-100.0); MEAN CORPUSCULAR HEMOGLOBIN 26.6 PG (27.0-34.0); MEAN CORPUSCULAR HGB CONC 31.4 % (32.0-36.0); MEAN PLATELET VOLUME 7.4 FL (7.0-11.0); MONO % 8.4 % (0.0-8.0); NEUT % 73.8 % (16.0-70.0); PLATELET COUNT 444 TH/MM3 (150-450); RED BLOOD COUNT 2.82 MIL/MM3 (4.00-5.30); RED CELL DISTRIBUTION WIDTH 19.4 % (11.6-17.2); WHITE BLOOD COUNT 11.4 TH/MM3 (4.0-11.0)
[2017-08-09 11:11] LABS: CREATININE 1.72 MG/DL (0.50-1.00)
[2017-08-09 12:31] LABS: BANDS 1 % (0-6); BASOPHILS 2 % (0-2); CORRECTED NUCLEATED RBC 2 /100 WBC (0-0); LYMPHOCYTES 9 % (9-44); METAMYELOCYTES 1 % (0-1); MONOCYTES 3 % (0-8); MYELOCYTES 1 % (0-0); NEUTROPHIL # MANUAL DIFF 9.7 TH/MM3 (1.8-7.7); NUCLEATED RED BLOOD CELL 2 (0-0); POLYS (SEG NEUTROPHILS) 82 % (16-70)
[2017-08-09 12:32] LABS: POLYCHROMASIA 3.1 % (0.0-1.9)
[2017-08-09] MEDS: INSULIN HUMAN NPH/R 70/30 1,000 UNITS/10 ML VIAL SQ SCH (17:27)
[2017-08-09] MEDS: GABAPENTIN 300 MG CAP PO SCH (22:48)
[2017-08-09] MEDS: ATORVASTATIN 20 MG TAB PO SCH (22:49)
[2017-08-10] VITALS (7 sets, daily range): BP systolic 115–179; BP diastolic 66–77; PULSE 61–73; RESP 18–20; TEMP 97.2–98.2; O2SAT 93–97
[2017-08-10] MEDS: ACETAMINOPHEN/HYDROcodone 325 MG/10 MG TAB PO PRN ×4 (04:41→20:02)
[2017-08-10] MEDS: SODIUM CHLOR 0.9% 1000 ML INJ 1,000 ML IV SCH ×2 (04:41→16:37)
[2017-08-10] MEDS: metroNIDAZOLE 500 MG TAB PO SCH ×3 (04:41→21:38)
[2017-08-10] MEDS: SODIUM CHLORIDE 0.9% FLUSH 10 ML FLUSH IV FLUSH SCH ×2 (09:00→20:02)
--- NOTE | 2017-08-10 09:32 | HHI.PR ---
Subjective Remarks No acute events overnight. Patient seen and examined this morning, complains of severe pain in her left thigh. She is overdue for pain medication and states that the pain medication usually relieves her pain. She has no other complaints at this time. Endorses bowel movements and urination. Denies shortness of breath. Objective Vitals Vital Signs Date Time Temp Pulse Resp B/P (MAP) Pulse Ox O2 Delivery O2 Flow Rate FiO2 08/10/17 08:00 97.3 61 18 143/66 (91) 97 08/10/17 04:04 Room Air 08/10/17 04:00 98.2 70 20 168/75 (106) 94 08/10/17 00:00 97.9 73 20 164/74 (104) 93 08/09/17 22:35 Room Air 08/09/17 20:00 97.7 74 20 129/63 (85) 92 08/09/17 17:28 74 08/09/17 16:00 97.0 72 18 99/54 (69) 90 08/09/17 12:12 18 08/09/17 12:00 97.0 64 18 128/58 (81) 94 I/O 08/09/17 08/09/17 08/09/17 08/10/17 08/10/17 08/10/17 07:00 15:00 23:00 07:00 15:00 23:00 Intake Total 1300 ml 120 ml Output Total 380 ml 440 ml Balance 920 ml -320 ml Intake Oral 1300 ml 120 ml Output Urine Total 380 ml 440 ml # Voids 2 4 # Bowel Movements 0 0 Result Diagram: 08/09/17 1033 08/09/17 1033 Objective Remarks GENERAL: Well-developed well-nourished. In no acute distress. SKIN: Warm and dry. Clean dressing on right heel HEENT: Normocephalic. Pupils equal and round. Mucous membranes pink and moist. CARDIOVASCULAR: Regular rate and rhythm. No murmur appreciated. RESPIRATORY: No accessory muscle use. Clear to auscultation bilaterally in anterior chairez. GASTROINTESTINAL: Abdomen soft, non-tender, nondistended. Bowel sounds x4. MUSCULOSKELETAL: Left lower extremity with Deonte wrap status post AKA. No clubbing or cyanosis. +2 foot edema of right foot. NEUROLOGICAL: Awake and alert. No focal neurological deficits. Moves upper and lower extremities spontaneously. Normal speech. A/P Problem List: (1) Encephalopathy ICD Code: G93.40 - Encephalopathy, unspecified Status: Acute (2) Wound infection ICD Code: T14.8XXA - Other injury of unspecified body region, initial encounter ; L08.9 - Local infection of the skin and subcutaneous tissue, unspecified Status: Acute (3) SAQIB (acute kidney injury) ICD Code: N17.9 - Acute kidney failure, unspecified Status: Acute (4) Anemia ICD Code: D64.9 - Anemia, unspecified (5) DM (diabetes mellitus) ICD Code: E11.9 - Type 2 diabetes mellitus without complications Status: Chronic Assessment and Plan 62-year-old female with a PMH of HTN, Hyperlipidemia, Chronic Back Pain, CAD and DM who was sent to the ER from SNF secondary to AMS and lateral lower extremity wounds. Acute Metabolic Encephalopathy - Resolved: - Increasing confusion/agitation while at Rehab. Suspect secondary to acute infection, sepsis, cellulitis, bacteremia. - CT Head w/ no acute findings, remote lacunar infarct. - Blood Cultures positive, see below. - Continue to monitor, patient seems to wax and wane. Possible underlying dementia component. - Psychiatry consulted for further evaluation. Recommends to continue Zoloft 100 mg, BuSpar 10 mg daily she was on this medication at home. Left Foot Diabetic Ulcer with Osteomyelitis: - previously admitted to [facility], s/p debridement and wound vac, sent to [facility] with PICC on IV Vanco. Presented to [place] with worsening wound drainage/ odor. - CXR w/ PICC in good position. Previously treated with vancomycin/Zosyn. PICC DC'd per infectious disease. See antibiotics as below - Consulted infectious disease, appreciate assistance. - s/p AKA on 08/07 by vascular surgery Suspected Bacteremia: - 08/03 1/2 cx positive for Prevotella, repeat BCx on 08/05 NGx4 days - s/p Vanc/Zosyn - ID consulted, recommend Flagyl x 10 days SAQIB: Creatinine 1.92, previously 0.75 on 08/09/12, no recent labs for comparison. - Likely secondary to poor oral intake. - IV Fluids - Trend Renal indices. Cr yesterday 1.72, awaiting today's labs. - Encouraged by mouth intake Normocytic Anemia: Likely from infection. Hemoglobin has been stable around 8. - 7.5 yesterday, continue to monitor - Awaiting today's labs - Transfuse when necessary DM: Sliding scale with Accu-Cheks. Continue home medications. Agitation/depression: Secondary to infection and need for AKA as above. - Consult psychiatry recommends to continue home medication Zoloft 100 mg, BuSpar 10 mg daily Hyperkalemia - resolved - Mild, potassium 5.5 with hemolysis noted. EKG did not show any T-wave peaking. - Repeat Potassium level 4.3 DVT Prophylaxis: Heparin sq Discharge Planning Pending recommendations from Vasc surg; patient will likely need rehab. PT ordered. Problem Qualifiers (1) DM (diabetes mellitus): Qualified Codes: E11.42 - Type 2 diabetes mellitus with diabetic polyneuropathy ; Z79.4 - longterm (current) use of insulin Lyric Nayak MD Aug 10, 2017 09:32
[2017-08-10] MEDS: INSULIN HUMAN NPH/R 70/30 1,000 UNITS/10 ML VIAL SQ SCH ×2 (09:48→17:55)
[2017-08-10] MEDS: SERTRALINE HCL 100 MG TAB PO SCH (09:49)
[2017-08-10] MEDS: DOCUSATE SODIUM 50 MG/SENNA 8.6 MG TAB PO SCH ×2 (09:49→20:02)
[2017-08-10] MEDS: LACTOBACILLUS ACIDOPHILUS TAB PO SCH ×2 (09:49→20:02)
[2017-08-10] MEDS: METOPROLOL TARTRATE 50 MG TAB PO SCH ×2 (09:49→20:02)
[2017-08-10] MEDS: busPIRone HCL 10 MG TAB PO SCH (09:49)
[2017-08-10] MEDS: INSULIN ASPART SUPPLEMENTAL SCALE SQ SCH ×4 (09:49→21:00)
[2017-08-10 12:14] LABS: AUTOMATED NEUTROPHIL # 7.4 TH/MM3 (1.8-7.7); BASOPHIL # 0.1 TH/MM3 (0-0.2); BASOPHIL % 0.6 % (0.0-2.0); EOSINOPHIL # 0.3 TH/MM3 (0-0.4); EOSINOPHIL % 2.7 % (0.0-4.0); HEMATOCRIT 24.1 % (35.0-46.0); HEMOGLOBIN 7.6 GM/DL (11.6-15.3); LYMPH % 15.1 % (9.0-44.0); LYMPHOCYTE # 1.5 TH/MM3 (1.0-4.8); MEAN CELL VOLUME 84.7 FL (80.0-100.0); MEAN CORPUSCULAR HEMOGLOBIN 26.7 PG (27.0-34.0); MEAN CORPUSCULAR HGB CONC 31.5 % (32.0-36.0); MEAN PLATELET VOLUME 7.7 FL (7.0-11.0); MONO % 7.5 % (0.0-8.0); MONOCYTE # 0.8 TH/MM3 (0-0.9); NEUT % 74.1 % (16.0-70.0); PLATELET COUNT 430 TH/MM3 (150-450); RED BLOOD COUNT 2.85 MIL/MM3 (4.00-5.30); RED CELL DISTRIBUTION WIDTH 19.3 % (11.6-17.2)
[2017-08-10 12:45] LABS: BANDS 2 % (0-6); BASOPHILS 1 % (0-2); CORRECTED NUCLEATED RBC 1 /100 WBC (0-0); LYMPHOCYTES 6 % (9-44); METAMYELOCYTES 1 % (0-1); MONOCYTES 4 % (0-8); MYELOCYTES 2 % (0-0); NEUTROPHIL # MANUAL DIFF 8.5 TH/MM3 (1.8-7.7); NUCLEATED RED BLOOD CELL 1 (0-0); POLYS (SEG NEUTROPHILS) 80 % (16-70)
[2017-08-10 12:46] LABS: POLYCHROMASIA 2.4 % (0.0-1.9)
[2017-08-10 13:15] LABS: BICARBONATE 24.2 MEQ/L (21.0-32.0); CALCIUM 7.4 MG/DL (8.5-10.1); CREATININE 1.56 MG/DL (0.50-1.00)
[2017-08-10 13:31] LABS: CALCIUM-PROTEIN CORRECTED 7.9 MG/DL (8.5-10.1); TOTAL PROTEIN 6.2 GM/DL (6.4-8.2)
[2017-08-10] MEDS: GABAPENTIN 300 MG CAP PO SCH (20:02)
[2017-08-10] MEDS: ATORVASTATIN 20 MG TAB PO SCH (20:02)
[2017-08-11] VITALS (8 sets, daily range): BP systolic 156–192; BP diastolic 73–84; PULSE 63–81; RESP 18–20; TEMP 97.3–98.7; O2SAT 91–97
[2017-08-11] MEDS: SODIUM CHLOR 0.9% 1000 ML INJ 1,000 ML IV SCH ×4 (01:00→22:24)
[2017-08-11] MEDS: metroNIDAZOLE 500 MG TAB PO SCH ×3 (04:34→22:19)
[2017-08-11] MEDS: ACETAMINOPHEN/HYDROcodone 325 MG/10 MG TAB PO PRN ×5 (04:35→22:23)
--- NOTE | 2017-08-11 07:16 | PD.VS.PN ---
Subjective POD #: 4 Procedure(s): Mayuri JONAS Subjective/Hospital Course doing well - notes moderate pain in Mayuri JONAS stump jessica po states her goal is to be able to get to bathroom Objective Vitals/I&O Date Time Temp Pulse Resp B/P (MAP) Pulse Ox O2 Delivery O2 Flow Rate FiO2 08/11/17 04:08 Room Air 08/11/17 04:00 97.5 81 20 192/79 (116) 92 08/11/17 00:00 97.6 71 18 156/84 (108) 94 08/11/17 00:00 Room Air 08/10/17 21:45 Room Air 08/10/17 20:00 69 08/10/17 20:00 97.4 69 18 179/74 (109) 94 08/10/17 19:21 20 08/10/17 18:00 61 08/10/17 16:00 97.2 65 18 126/77 (93) 93 08/10/17 12:00 97.8 67 18 115/69 (84) 94 08/10/17 08:00 97.3 61 18 143/66 (91) 97 08/10/17 07:15 97 Nasal Cannula 2.00 Humidified 08/11/17 08/11/17 08/11/17 07:00 15:00 23:00 Intake Total 1512 ml Output Total 525 ml Balance 987 ml Exam: Mayuri JONAS incision c/d/i stump warm, no erythema no hematoma Laboratory Laboratory Tests Test 08/10/17 11:04 White Blood Count 10.0 Red Blood Count 2.85 Hemoglobin 7.6 Hematocrit 24.1 Mean Corpuscular Volume 84.7 Mean Corpuscular Hemoglobin 26.7 Mean Corpuscular Hemoglobin Concent 31.5 Red Cell Distribution Width 19.3 Platelet Count 430 Mean Platelet Volume 7.7 Neutrophils (%) (Auto) 74.1 Lymphocytes (%) (Auto) 15.1 Monocytes (%) (Auto) 7.5 Eosinophils (%) (Auto) 2.7 Basophils (%) (Auto) 0.6 Neutrophils # (Auto) 7.4 Lymphocytes # (Auto) 1.5 Monocytes # (Auto) 0.8 Eosinophils # (Auto) 0.3 Basophils # (Auto) 0.1 CBC Comment AUTO DIFF Differential Total Cells Counted 100 Neutrophils % (Manual) 80 Band Neutrophils % 2 Lymphocytes % 6 Monocytes % 4 Eosinophils % 4 Basophils % 1 Neutrophils # (Manual) 8.5 Metamyelocytes 1 Myelocytes 2 Nucleated Red Blood Cells 1 Differential Comment FINAL DIFF MANUAL Platelet Estimate HIGH Platelet Morphology Comment NORMAL Polychromasia 2.4 Blood Urea Nitrogen 35 Creatinine 1.56 Random Glucose 214 Total Protein 6.2 Calcium Level 7.4 Sodium Level 137 Potassium Level 4.2 Chloride Level 104 Carbon Dioxide Level 24.2 Anion Gap 9 Estimat Glomerular Filtration Rate 34 Protein Corrected Calcium 7.9 Date/Time Source Procedure Growth Status 08/05/17 13:05 Blood Peripheral Aerobic Blood Culture - Final NO GROWTH IN 5 DAYS Complete 08/05/17 13:05 Blood Peripheral Anaerobic Blood Culture - Final QNS - SEE AEROBE REPORT Complete Assessment and Plan Assessment: (1) Wound infection Status: Acute Plan POD#4 s/p L AKA Looks great 1. Open to air and may use ENRIQUE wrap for comfort 2. OK from vasc surgery standpoint to get OOB and ambulate on R LE with assistance 3. Discussed rehab with patient this morning - clear to go anytime from vascular surgery standpoint 4. Will arrange f/u in 1m in my clinic. Curry Melvin MD Aug 11, 2017 07:16
[2017-08-11 08:04] LABS: AUTOMATED NEUTROPHIL # 7.2 TH/MM3 (1.8-7.7); BASOPHIL # 0.1 TH/MM3 (0-0.2); BASOPHIL % 0.7 % (0.0-2.0); EOSINOPHIL # 0.2 TH/MM3 (0-0.4); EOSINOPHIL % 2.5 % (0.0-4.0); HEMATOCRIT 25.5 % (35.0-46.0); HEMOGLOBIN 7.8 GM/DL (11.6-15.3); LYMPH % 14.2 % (9.0-44.0); LYMPHOCYTE # 1.4 TH/MM3 (1.0-4.8); MEAN CELL VOLUME 84.1 FL (80.0-100.0); MEAN CORPUSCULAR HEMOGLOBIN 25.8 PG (27.0-34.0); MEAN CORPUSCULAR HGB CONC 30.6 % (32.0-36.0); MEAN PLATELET VOLUME 7.1 FL (7.0-11.0); MONO % 8.9 % (0.0-8.0); MONOCYTE # 0.9 TH/MM3 (0-0.9); NEUT % 73.7 % (16.0-70.0); PLATELET COUNT 450 TH/MM3 (150-450); RED BLOOD COUNT 3.03 MIL/MM3 (4.00-5.30); RED CELL DISTRIBUTION WIDTH 19.6 % (11.6-17.2); WHITE BLOOD COUNT 9.8 TH/MM3 (4.0-11.0)
[2017-08-11 08:32] LABS: BICARBONATE 22.8 MEQ/L (21.0-32.0); CALCIUM 7.6 MG/DL (8.5-10.1); CREATININE 1.23 MG/DL (0.50-1.00)
[2017-08-11 08:51] LABS: BANDS 4 % (0-6); CORRECTED NUCLEATED RBC 10 /100 WBC (0-0); LYMPHOCYTES 6 % (9-44); METAMYELOCYTES 2 % (0-1); MONOCYTES 7 % (0-8); NEUTROPHIL # MANUAL DIFF 8.3 TH/MM3 (1.8-7.7); NUCLEATED RED BLOOD CELL 10 (0-0); POLYCHROMASIA 2.9 % (0.0-1.9); POLYS (SEG NEUTROPHILS) 79 % (16-70)
[2017-08-11] MEDS: SERTRALINE HCL 100 MG TAB PO SCH (08:51)
[2017-08-11] MEDS: LACTOBACILLUS ACIDOPHILUS TAB PO SCH ×2 (08:51→22:18)
[2017-08-11] MEDS: METOPROLOL TARTRATE 50 MG TAB PO SCH ×2 (08:51→22:19)
[2017-08-11 08:52] LABS: OVALOCYTES 1+ (NORMAL)
[2017-08-11] MEDS: busPIRone HCL 10 MG TAB PO SCH (08:52)
[2017-08-11] MEDS: INSULIN HUMAN NPH/R 70/30 1,000 UNITS/10 ML VIAL SQ SCH ×2 (08:53→17:00)
[2017-08-11] MEDS: INSULIN ASPART SUPPLEMENTAL SCALE SQ SCH ×4 (08:53→21:00)
[2017-08-11] MEDS: DOCUSATE SODIUM 50 MG/SENNA 8.6 MG TAB PO SCH ×2 (09:00→21:00)
[2017-08-11] MEDS: SODIUM CHLORIDE 0.9% FLUSH 10 ML FLUSH IV FLUSH SCH ×2 (09:00→21:00)
[2017-08-11] MEDS ORDERED: amLODIPine BESYLATE 5 MG TAB PO SCH (13:30)
[2017-08-11] MEDS ORDERED: NEUR300C PO (14:13)
[2017-08-11] MEDS ORDERED: AMLO5 PO (14:13)
[2017-08-11] MEDS ORDERED: METR-1 PO (14:13)
[2017-08-11] MEDS ORDERED: HYDR-3583 PO (14:13)
--- NOTE | 2017-08-11 14:20 | HHI.DS ---
Discharge Summary Admission Date Aug 04, 2017 at 10:44 Discharge Date: Aug 11, 2017 Admitting Diagnosis altered mental status, leg cellulitis, failing treatment? (1) Encephalopathy ICD Code: G93.40 - Encephalopathy, unspecified Status: Acute (2) Wound infection ICD Code: T14.8XXA - Other injury of unspecified body region, initial encounter ; L08.9 - Local infection of the skin and subcutaneous tissue, unspecified Status: Acute (3) SAQIB (acute kidney injury) ICD Code: N17.9 - Acute kidney failure, unspecified Status: Acute (4) Anemia ICD Code: D64.9 - Anemia, unspecified (5) DM (diabetes mellitus) ICD Code: E11.9 - Type 2 diabetes mellitus without complications Status: Chronic Procedures s/p AKA on 08/07 Brief History - From Admission This is a 62-year-old female with a PMH of HTN, Hyperlipidemia, Chronic Back Pain, CAD and DM who was sent to the ER from SNF secondary to AMS and lateral lower extremity wounds. Per report, patient with recent admission to for bilateral lower extremity wounds, +MRSA wound cultures, on Vanc IV qdaily via PICC line, records from pending. Was d/c'd to Rehab and sent to ER today secondary to increasing confusion and aggressive behavior towards staff. No reported fever or chills. Has been receiving IV Abx as scheduled per report. On arrival, BP 151/70, HR 107, O2 sat 94% on RA, Afebrile. WBC 11.5. Hemoglobin 8.9, previous 11.6 on 08/09/12. INR 1.0. UA with moderate LE, bacteriuria. CT Head with right frontal scalp swelling, no acute finding, remote lacunar infarct on the right. CXR with left PICC line. Vena cava, atelectasis. CBC/BMP: 08/11/17 0632 08/11/17 0732 Significant Findings Laboratory Tests Test 08/09/17 10:33 08/10/17 11:04 08/11/17 06:32 08/11/17 07:32 White Blood Count 11.4 TH/MM3 (4.0-11.0) Red Blood Count 2.82 MIL/MM3 (4.00-5.30) 2.85 MIL/MM3 (4.00-5.30) 3.03 MIL/MM3 (4.00-5.30) Hemoglobin 7.5 GM/DL (11.6-15.3) 7.6 GM/DL (11.6-15.3) 7.8 GM/DL (11.6-15.3) Hematocrit 23.9 % (35.0-46.0) 24.1 % (35.0-46.0) 25.5 % (35.0-46.0) Mean Corpuscular Hemoglobin 26.6 PG (27.0-34.0) 26.7 PG (27.0-34.0) 25.8 PG (27.0-34.0) Mean Corpuscular Hemoglobin Concent 31.4 % (32.0-36.0) 31.5 % (32.0-36.0) 30.6 % (32.0-36.0) Red Cell Distribution Width 19.4 % (11.6-17.2) 19.3 % (11.6-17.2) 19.6 % (11.6-17.2) Neutrophils (%) (Auto) 73.8 % (16.0-70.0) 74.1 % (16.0-70.0) 73.7 % (16.0-70.0) Monocytes (%) (Auto) 8.4 % (0.0-8.0) 8.9 % (0.0-8.0) Neutrophils # (Auto) 8.5 TH/MM3 (1.8-7.7) Monocytes # (Auto) 1.0 TH/MM3 (0-0.9) Neutrophils % (Manual) 82 % (16-70) 80 % (16-70) 79 % (16-70) Neutrophils # (Manual) 9.7 TH/MM3 (1.8-7.7) 8.5 TH/MM3 (1.8-7.7) 8.3 TH/MM3 (1.8-7.7) Myelocytes 1 % (0-0) 2 % (0-0) Nucleated Red Blood Cells 2 /100 WBC (0-0) 1 /100 WBC (0-0) 10 /100 WBC (0-0) Platelet Estimate HIGH (NORMAL) HIGH (NORMAL) HIGH (NORMAL) Polychromasia 3.1 % (0.0-1.9) 2.4 % (0.0-1.9) 2.9 % (0.0-1.9) Creatinine 1.72 MG/DL (0.50-1.00) 1.56 MG/DL (0.50-1.00) 1.23 MG/DL (0.50-1.00) Estimat Glomerular Filtration Rate 30 ML/MIN (>89) 34 ML/MIN (>89) 44 ML/MIN (>89) Lymphocytes % 6 % (9-44) 6 % (9-44) Blood Urea Nitrogen 35 MG/DL (7-18) 32 MG/DL (7-18) Random Glucose 214 MG/DL (74-106) 173 MG/DL (74-106) Total Protein 6.2 GM/DL (6.4-8.2) Calcium Level 7.4 MG/DL (8.5-10.1) 7.6 MG/DL (8.5-10.1) Protein Corrected Calcium 7.9 MG/DL (8.5-10.1) Metamyelocytes 2 % (0-1) Ovalocytes 1+ (NORMAL) Imaging Last Impressions Head CT 08/03/171947 Signed Impressions: Service Date/Time: Thursday, August 03, 2017 20:00 - CONCLUSION: 1. Right frontal scalp swelling. No acute intracranial abnormality. Remote lacunar infarct on the right. Manuel Carmichael MD Chest X-Ray 08/03/171947 Signed Impressions: Service Date/Time: Thursday, August 03, 2017 21:11 - CONCLUSION: 1. Left PICC line superior vena cava. Minimal subsegmental basilar opacity most characteristic of atelectasis. Manuel Carmichael MD PE at Discharge GENERAL: Well-developed well-nourished. In no acute distress. SKIN: Warm and dry. Clean dressing on right heel HEENT: Normocephalic. Pupils equal and round. Mucous membranes pink and moist. CARDIOVASCULAR: Regular rate and rhythm. No murmur appreciated. RESPIRATORY: No accessory muscle use. Clear to auscultation bilaterally in anterior chairez. GASTROINTESTINAL: Abdomen soft, non-tender, nondistended. Bowel sounds x4. MUSCULOSKELETAL: Left lower extremity with Deonte wrap status post AKA. No clubbing or cyanosis. +2 foot edema of right foot. NEUROLOGICAL: Awake and alert. No focal neurological deficits. Moves upper and lower extremities spontaneously. Normal speech. Pt update on day of discharge Pt frustrated w specialty bed and wants regular bed. no complaints of pain at this time, but upset when I ask her about her appetite. denies any CP/SOB/N/V and fried at bedside. Hospital Course 62-year-old female with a PMH of HTN, Hyperlipidemia, Chronic Back Pain, CAD and DM who was sent to the ER from SNF secondary to AMS and lateral lower extremity wounds. Acute Metabolic Encephalopathy - Resolved: - CT Head w/ no acute findings, remote lacunar infarct. - Blood Cultures positive, see below. - Psychiatry consulted for further evaluation. Recommends to continue Zoloft 100 mg, BuSpar 10 mg daily she was on this medication at home. Left Foot Diabetic Ulcer with Osteomyelitis: - previously admitted to [facility], s/p debridement and wound vac, sent to [facility] with PICC on IV Vanco. Presented to [place] with worsening wound drainage/ odor. - CXR w/ PICC in good position. Previously treated with vancomycin/Zosyn. PICC DC'd per infectious disease who followed the patient during this hospitalization. See antibiotics as below - s/p AKA on 08/07 by vascular surgery. Pt was cleared by vascular sx for discharge. Suspected Bacteremia: - 08/03 1/2 cx positive for Prevotella, repeat BCx on 08/05 NGx4 days - s/p Vanc/Zosyn - ID consulted, recommend Flagyl x 10 days (end date 08/19/17) SAQIB: Creatinine 1.92, previously 0.75 on 08/09/12, no recent labs for comparison. - Likely secondary to poor oral intake. - Cr trending down, down to 1.23, monitor closely as an outpatient. Normocytic Anemia: Likely from infection. Hemoglobin has been stable around 7.8. DM: Sliding scale with Accu-Cheks. script for insulin given. Diabetic diet. HTN: valsartan and spironolactone held due to SAQIB. increased amlodipine to 10mg po daily. continue BB. ok to discharge if SBP<160. Close monitoring of BP as an outpatient Pt Condition on Discharge: Stable Discharge Disposition: Discharge to SNF Discharge Time: > 30 minutes Discharge Instructions DIET: Follow Instructions for: Heart Healthy Diet, Diabetic Diet Activities you can perform: See Additionl Instruction Other Activity Instructions: Open to air and may use DEONTE wrap for comfort OK from vasc surgery standpoint to get OOB and ambulate on R LE with assistance Follow up Referrals: PCP Follow-up - 2-3 Days Vascular Surgery @ Vascular Surgery with Curry Melvin MD New Medications: Amlodipine (Norvasc) 5 Mg Tab 10 MG PO DAILY, #30 TAB Gabapentin (Neurontin) 300 Mg Cap 300 MG PO HS, #30 CAP Hydrocodone-Acetaminophen (Hydrocodone-Acetaminophen) 10-325 mg Tab 1 TAB PO Q4-6H PRN for PAIN SCALE 6 TO 10, #30 TAB Insulin Human Isophane-Regular 70-30 Inj (Novolin 70-30 Inj) 1,000 Unit/10 Ml Vial 10 UNITS SQ BID@08,17 for 30 Days, #1 VIAL Metronidazole (Flagyl) 500 Mg Tab 500 MG PO Q8HR, #24 TAB Pt to take until 08/19/17 Continued Medications: Aspirin (Aspirin) 81 Mg Chew 81 MG CHEW DAILY, TAB 0 Refills Atorvastatin (Atorvastatin) 20 Mg Tab 20 MG PO HS for Cholesterol Management, #30 TAB 0 Refills Bisacodyl Supp (Bisacodyl Supp) 10 Mg Supp 10 MG RECTAL DAILY PRN for CONSTIPATION, SUPP 0 Refills Bumetanide (Bumetanide) 2 Mg Tab 2 MG PO DAILY, TAB 0 Refills Buspirone (Buspirone) 10 Mg Tab 10 MG PO DAILY for Anxiety, TAB 0 Refills Cyclobenzaprine (Flexeril) 5 Mg Tab 5 MG PO DAILY for Muscle Spasm, #90 TAB 0 Refills Insulin NPH Isophane-Reg (Human) 70-30 Inj (Humulin 70-30 Inj) 1,000 Unit/10 Ml Vial 65 UNITS SQ BID Lactobacillus Acidophilus (Lactobacillus Acidophilus) 1 Billion Cell Tab 2 TAB PO BIDAC for Nutritional Supplement, #60 TAB 0 Refills Magnesium Citrate Liq (Citroma Liq) 300 Ml Liq 300 ML PO DIRECTED, #1 BOTTLE 0 Refills Metoprolol Tartrate (Metoprolol Tartrate) 50 Mg Tab 50 MG PO BID, #60 TAB 0 Refills Multiple Vitamin (Multivitamin) 1 Tab Tab 1 TAB PO DAILY Sennosides (Sennosides) 8.6 Mg Tab 17.2 MG PO DAILY for Constipation, TAB 0 Refills Sertraline (Sertraline) 100 Mg Tab 100 MG PO DAILY, #30 TAB 0 Refills Discontinued Medications: Acetaminophen (Tylenol) 325 Mg Tab 650 MG PO Q4H PRN for PAIN SCALE 1 TO 10, TAB 0 Refills Amlodipine (Amlodipine) 2.5 Mg Tab 2.5 MG PO DAILY for Blood Pressure Management, #30 TAB 0 Refills Insulin Aspart Inj (Novolog Inj) 1,000 Unit/10 Ml Vial 0 SQ DIRECTED for Blood Sugar Management, #10 ML 0 Refills Sliding Scale as directed. Losartan (Cozaar) 100 Mg Tab 100 MG PO DAILY for Blood Pressure Management, #30 TAB 0 Refills Spironolactone (Spironolactone) 50 Mg Tab 50 MG PO DAILY, #30 TAB 0 Refills [Humulin 70/30] () 90 SC BIDAC Elva Dover MD Aug 11, 2017 14:20
[2017-08-11] MEDS ORDERED: NOVO7030P2 SQ (14:25)
--- NOTE | 2017-08-11 16:00 | HHI.HCPN ---
Reason for visit a. To assist with evaluation and management of symptoms including: Pain, debility. b. To assist medical decision maker(s) with: better understanding of current medical conditions; weighing benefits/burdens of medical treatment options; making medical treatment decisions. . Subjective/Interval History Mrs. Carbajal is a 62-year-old female with a medical history significant for uncontrolled diabetes type 2, CAD status post CABG, PAD, PVD, hypertension, hyperlipidemia, chronic back pain and diabetes ulcers. Patient with history of left heel wound for over 6 months, progressed to chronic osteomyelitis, positive MRSA wound cultures. Patient was recently treated at [facility] where she underwent wound debridement and placement of wound VAC. Patient was subsequently discharged to the [facility] for rehabilitation on IV antibiotics. 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 Palliative care consulted for clarifications of goals of care. Patient was seen in medical floor. She was resting in bed in no acute distress. Endorsing mild left stump pain. Pain is well localized, remains sharp. Currently on 04/21. Taking Bronx as needed, has required 3 doses of 10 mg/325 mg today, and 4 doses yesterday. Denies any shortness of breath, nausea/ vomiting or abdominal discomfort. Remains afebrile, hypertensive with SBP in the 150s to 160s. Tolerated room air, oxygen saturation in the mid to low 90s. Laboratory workup today revealing WBC 9.8, Hgb 7.8, platelet count 450. BUN/ creatinine 32/1.23. New imaging for review. Patient tells me that she feels frustrated with her overall condition. Tells me that she is still coming to terms with her recent amputation. Reporting episodes of restlessness and anger given her frustration. She reports looking forward to discharge to senior care facility for rehabilitation. unknown at this time if she will be able to return home with her given her higher level of needs and 's current health condition. Patient appears open to long-term placement if required. Patient wishing to remain DNR/DNI upon discharge. Community DNR in file. . Family/friend interactions No family at bedside. . Advance Directives Living Will: Never completed Health Care Surrogate: Never completed Durable Power of [place] Applier: Never completed Advance Directive Specifics Health Care Surrogate(s): No advance directives completed. As per [place] statute, healthcare proxy decision making falls to patient's Maciej Carbajal. . Significant change in goals: No code. DNR/DNI. Goals of therapy remain unchanged. . Objective Vital Signs Date Time Temp Pulse Resp B/P (MAP) Pulse Ox O2 Delivery O2 Flow Rate FiO2 08/11/17 08:24 68 08/11/17 08:00 97.9 66 18 169/76 (107) 91 08/11/17 07:58 Room Air 08/11/17 04:08 Room Air 08/11/17 04:00 97.5 81 20 192/79 (116) 92 08/11/17 00:00 97.6 71 18 156/84 (108) 94 08/11/17 00:00 Room Air 08/10/17 21:45 Room Air 08/10/17 20:00 69 08/10/17 20:00 97.4 69 18 179/74 (109) 94 08/10/17 19:21 20 08/10/17 18:00 61 08/10/17 16:00 97.2 65 18 126/77 (93) 93 Intake & Output 08/11/17 08/11/17 07:00 19:00 Intake Total 1512 ml Output Total 525 ml Balance 987 ml Intake Oral 480 ml IV Total 1032 ml Output Urine Total 525 ml # Bowel Movements 1 Physical Exam CONSTITUTIONAL/GENERAL: This is an obese woman resting in bed in no acute distress. Patient looks older than stated age. TUBES/LINES/DRAINS: PIV's. SKIN: No jaundice. Not diaphoretic. Erythema to right lower extremity. Left AKA, surgical incisions with sandy in place. Incision appears clean and well approximated. HEAD: Atraumatic. Normocephalic. EYES: Pupils equal and round and reactive. Bilateral cataracts. Extraocular motions intact. No scleral icterus. No injection or drainage. Large right periorbital ecchymosis, resolving. ENT: Hearing grossly normal. Nose without bleeding or purulent drainage. Poor dentition, moist oral mucosa. NECK: Trachea midline. Supple, nontender. CARDIOVASCULAR: Regular rate and rhythm. Edema to right lower extremity, left stump. RESPIRATORY/CHEST: Symmetric, unlabored respirations. Clear, diminished to auscultation. Breath sounds equal bilaterally. GASTROINTESTINAL: Abdomen obese, large, round, soft, nontender. No guarding. Bowel sounds present. GENITOURINARY: Without palpable bladder distension. MUSCULOSKELETAL: Left AKA. Right foot with fifth digit amputation. NEUROLOGICAL: Awake and alert x self, place and situation. Follows commands. Moves all extremities. PSYCHIATRIC: Calm. . Diagnostic Tests Laboratory Laboratory Tests Test 08/09/17 10:33 08/10/17 11:04 08/11/17 06:32 08/11/17 07:32 White Blood Count 11.4 TH/MM3 (4.0-11.0) 10.0 TH/MM3 (4.0-11.0) 9.8 TH/MM3 (4.0-11.0) Red Blood Count 2.82 MIL/MM3 (4.00-5.30) 2.85 MIL/MM3 (4.00-5.30) 3.03 MIL/MM3 (4.00-5.30) Hemoglobin 7.5 GM/DL (11.6-15.3) 7.6 GM/DL (11.6-15.3) 7.8 GM/DL (11.6-15.3) Hematocrit 23.9 % (35.0-46.0) 24.1 % (35.0-46.0) 25.5 % (35.0-46.0) Mean Corpuscular Volume 84.6 FL (80.0-100.0) 84.7 FL (80.0-100.0) 84.1 FL (80.0-100.0) Mean Corpuscular Hemoglobin 26.6 PG (27.0-34.0) 26.7 PG (27.0-34.0) 25.8 PG (27.0-34.0) Mean Corpuscular Hemoglobin Concent 31.4 % (32.0-36.0) 31.5 % (32.0-36.0) 30.6 % (32.0-36.0) Red Cell Distribution Width 19.4 % (11.6-17.2) 19.3 % (11.6-17.2) 19.6 % (11.6-17.2) Platelet Count 444 TH/MM3 (150-450) 430 TH/MM3 (150-450) 450 TH/MM3 (150-450) Mean Platelet Volume 7.4 FL (7.0-11.0) 7.7 FL (7.0-11.0) 7.1 FL (7.0-11.0) Neutrophils (%) (Auto) 73.8 % (16.0-70.0) 74.1 % (16.0-70.0) 73.7 % (16.0-70.0) Lymphocytes (%) (Auto) 14.8 % (9.0-44.0) 15.1 % (9.0-44.0) 14.2 % (9.0-44.0) Monocytes (%) (Auto) 8.4 % (0.0-8.0) 7.5 % (0.0-8.0) 8.9 % (0.0-8.0) Eosinophils (%) (Auto) 1.9 % (0.0-4.0) 2.7 % (0.0-4.0) 2.5 % (0.0-4.0) Basophils (%) (Auto) 1.1 % (0.0-2.0) 0.6 % (0.0-2.0) 0.7 % (0.0-2.0) Neutrophils # (Auto) 8.5 TH/MM3 (1.8-7.7) 7.4 TH/MM3 (1.8-7.7) 7.2 TH/MM3 (1.8-7.7) Lymphocytes # (Auto) 1.7 TH/MM3 (1.0-4.8) 1.5 TH/MM3 (1.0-4.8) 1.4 TH/MM3 (1.0-4.8) Monocytes # (Auto) 1.0 TH/MM3 (0-0.9) 0.8 TH/MM3 (0-0.9) 0.9 TH/MM3 (0-0.9) Eosinophils # (Auto) 0.2 TH/MM3 (0-0.4) 0.3 TH/MM3 (0-0.4) 0.2 TH/MM3 (0-0.4) Basophils # (Auto) 0.1 TH/MM3 (0-0.2) 0.1 TH/MM3 (0-0.2) 0.1 TH/MM3 (0-0.2) CBC Comment AUTO DIFF AUTO DIFF AUTO DIFF Differential Total Cells Counted 100 100 100 Neutrophils % (Manual) 82 % (16-70) 80 % (16-70) 79 % (16-70) Band Neutrophils % 1 % (0-6) 2 % (0-6) 4 % (0-6) Lymphocytes % 9 % (9-44) 6 % (9-44) 6 % (9-44) Monocytes % 3 % (0-8) 4 % (0-8) 7 % (0-8) Eosinophils % 1 % (0-4) 4 % (0-4) 2 % (0-4) Basophils % 2 % (0-2) 1 % (0-2) Neutrophils # (Manual) 9.7 TH/MM3 (1.8-7.7) 8.5 TH/MM3 (1.8-7.7) 8.3 TH/MM3 (1.8-7.7) Metamyelocytes 1 % (0-1) 1 % (0-1) 2 % (0-1) Myelocytes 1 % (0-0) 2 % (0-0) Nucleated Red Blood Cells 2 /100 WBC (0-0) 1 /100 WBC (0-0) 10 /100 WBC (0-0) Differential Comment FINAL DIFF MANUAL FINAL DIFF MANUAL FINAL DIFF MANUAL Platelet Estimate HIGH (NORMAL) HIGH (NORMAL) HIGH (NORMAL) Platelet Morphology Comment NORMAL (NORMAL) NORMAL (NORMAL) NORMAL (NORMAL) Polychromasia 3.1 % (0.0-1.9) 2.4 % (0.0-1.9) 2.9 % (0.0-1.9) Creatinine 1.72 MG/DL (0.50-1.00) 1.56 MG/DL (0.50-1.00) 1.23 MG/DL (0.50-1.00) Estimat Glomerular Filtration Rate 30 ML/MIN (>89) 34 ML/MIN (>89) 44 ML/MIN (>89) Blood Urea Nitrogen 35 MG/DL (7-18) 32 MG/DL (7-18) Random Glucose 214 MG/DL (74-106) 173 MG/DL (74-106) Total Protein 6.2 GM/DL (6.4-8.2) Calcium Level 7.4 MG/DL (8.5-10.1) 7.6 MG/DL (8.5-10.1) Sodium Level 137 MEQ/L (136-145) 139 MEQ/L (136-145) Potassium Level 4.2 MEQ/L (3.5-5.1) 4.4 MEQ/L (3.5-5.1) Chloride Level 104 MEQ/L (98-107) 107 MEQ/L (98-107) Carbon Dioxide Level 24.2 MEQ/L (21.0-32.0) 22.8 MEQ/L (21.0-32.0) Anion Gap 9 MEQ/L (5-15) 9 MEQ/L (5-15) Protein Corrected Calcium 7.9 MG/DL (8.5-10.1) Ovalocytes 1+ (NORMAL) Result Diagram: 08/11/17 0632 08/11/17 0732 Procedures 08/07/17- left [id number] amputation. . Assessment and Plan Disease Oriented Problem List: (1) Bacteremia (2) Osteomyelitis of ankle (3) MRSA (methicillin resistant staph aureus) culture positive (4) SAQIB (acute kidney injury) (5) Diabetes mellitus type 2, uncontrolled, with complications (6) Physical deconditioning Symptom Scale: (1) Pain 0-10 Scale: 7 Comment: Acute on chronic (2) Debility 0-10 Scale: Unable to quantify Comment: Progressive decline Pertinent Non-Medical Issues Psychosocial: Patient was born in [place]. Grew up in [place]. Moved to [place] in 1992. Has been to for the past 26 years, they have no children. 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 Spiritual: No congregation affiliation. Legal: No advance directives completed. Ethical issues impacting care: No ethical issues identified. . Important Contacts Maciej Carbajal . Friend/neighbor Laila Bella . . Prognosis Mrs. Carbajal is a 62-year-old female with a medical history significant for uncontrolled diabetes type 2, CAD status post CABG, PAD, PVD, hypertension, hyperlipidemia, chronic back pain and diabetes ulcers. Patient with history of left heel wound for over 6 months, progressed to chronic osteomyelitis, positive MRSA wound cultures. Patient was recently treated at [facility] where she underwent wound debridement and placement of wound VAC. Patient now presented with bacteremia, sepsis requiring amputation of left lower extremity for source control. Patient is a very high risk for further complications, continue decline and given multiple ongoing chronic comorbidities, acute infection and profound physical deconditioning. . Code Status: No Code Plan * CODE STATUS: NO CODE. DNR/DNI. Patient with community DNR signed on . * HEALTHCARE DECISION-MAKING: Patient participating in medical decision-making. She appears to have fair understanding of her complicated medical issues and retains the ability to weight benefits versus burdens of treatment options. Intermittent forgetfulness/confusion, appears to be resolving. No advance directives completed. As per [place] statute, healthcare proxy decision-making falls to patient's Maciej Carbajal. Palliative care recommends shared decision-making with at this time given intermittent forgetfulness/ confusion. * GOALS OF CARE: Patient electing to continue conservative management short of NO code, s/p left AKA. PT following, PT a rehabilitation recommended. Patient electing DC to SNF for short-term rehabilitation, likely transition to long- term placement given her higher level of needs and 's multiple chronic health issues. * SYMPTOMS: = Pain, acute on chronic. History of chronic low back and right hip pain, acute pain secondary to lower extremities infection/AKA. Home regimen of Percocet 5/325mg q4hr PRN and Bronx 10/325mg also available as needed. Endorsing mild left stump pain. Pain is well localized, remains sharp. Currently on 04/21. Taking Bronx as needed, has required 3 doses of 10 mg/325 mg today, and 4 doses yesterday. No further recommendations at this time given intermittent confusion. = Debility, progressive. Worsening for the past year. Looking into rehabilitation upon discharge. = Constipation: Secondary to opiate use and bedrest. Jenn-Colace twice a day, milk of magnesia , Senokot, Dulcolax suppository and lactulose available as needed. Last bowel movement 08/10/17. * Case reviewed with case management. * Palliative care contact information has been provided to patient and . * Palliative care will continue to follow-up as needed for further clarifications of goals of care as patient's clinical course continues to evolve. . Time Spent Total Floor Time (mins): 27 (Total time to include review medical records, physical exam, goals of care conversation with patient, case discussion with case management.) >50% Counseling/Coord of Care: Yes Attestation To help prompt me to consider important information that might be impacting today's encounter and assessment, information from prior notes written by myself or my colleagues may have been "brought forward" into today's note. My signature on this note, however, is an attestation that I personally performed the exam, history, and/or decision-making noted today, and, unless otherwise indicated, the interactions with patient, family, and staff as well as the review of records all occurred today. I also attest that the listed assessment and stated plan reflect my best clinical judgment today based on the combination of historical information, prior notes, and today's exam/ interactions. When time spent is documented, it refers only to time spent today by the signer, or if indicated, combined time spent today by collaborating physician/nurse practitioner. Ebony Garcia Aug 11, 2017 16:00
[2017-08-11] MEDS: GABAPENTIN 300 MG CAP PO SCH (22:18)
[2017-08-11] MEDS: ATORVASTATIN 20 MG TAB PO SCH (22:18)
[2017-08-12] VITALS (7 sets, daily range): BP systolic 118–180; BP diastolic 71–80; PULSE 60–89; RESP 16–20; TEMP 97.3–98.4; O2SAT 93–96
[2017-08-12] MEDS: ACETAMINOPHEN/HYDROcodone 325 MG/10 MG TAB PO PRN ×2 (02:48→11:29)
[2017-08-12] MEDS: metroNIDAZOLE 500 MG TAB PO SCH ×2 (06:47→12:45)
[2017-08-12] MEDS: SODIUM CHLOR 0.9% 1000 ML INJ 1,000 ML IV SCH (06:49)
[2017-08-12] MEDS: SODIUM CHLORIDE 0.9% FLUSH 10 ML FLUSH IV FLUSH SCH (09:00)
[2017-08-12] MEDS: DOCUSATE SODIUM 50 MG/SENNA 8.6 MG TAB PO SCH (09:00)
[2017-08-12] MEDS ORDERED: amLODIPine BESYLATE 5 MG TAB PO SCH (09:00)
[2017-08-12] MEDS: INSULIN HUMAN NPH/R 70/30 1,000 UNITS/10 ML VIAL SQ SCH (09:20)
[2017-08-12] MEDS: INSULIN ASPART SUPPLEMENTAL SCALE SQ SCH ×2 (09:21→12:44)
[2017-08-12] MEDS: SERTRALINE HCL 100 MG TAB PO SCH (09:22)
[2017-08-12] MEDS: METOPROLOL TARTRATE 50 MG TAB PO SCH (09:23)
[2017-08-12] MEDS: LACTOBACILLUS ACIDOPHILUS TAB PO SCH (09:23)
[2017-08-12] MEDS: busPIRone HCL 10 MG TAB PO SCH (09:23)
--- NOTE | 2017-08-12 09:39 | PD.VS.PN ---
Subjective POD #: 5 Procedure(s): L AKA Subjective/Hospital Course Afebrile 62/F Pain controlled L AKA Incision intact with staple closure Objective Vitals/I&O Date Time Temp Pulse Resp B/P (MAP) Pulse Ox O2 Delivery O2 Flow Rate FiO2 08/12/17 08:00 97.6 63 20 180/77 (111) 96 08/12/17 04:00 97.3 60 16 165/74 (104) 93 08/12/17 00:00 98.4 67 18 149/79 (102) 93 08/11/17 22:41 Room Air 08/11/17 20:00 Room Air 08/11/17 20:00 97.5 69 18 175/79 (111) 93 08/11/17 19:59 68 08/11/17 16:00 98.7 68 18 190/83 (118) 95 08/11/17 12:00 97.3 63 18 167/73 (104) 97 08/12/17 08/12/17 08/12/17 07:00 15:00 23:00 Intake Total 1195 ml Balance 1195 ml Exam: GENERAL: Alert in NAD SKIN: Warm and dry L AKA incision intact w/ staple closure NO R/D/S/O Laboratory Date/Time Source Procedure Growth Status 08/05/17 13:05 Blood Peripheral Aerobic Blood Culture - Final NO GROWTH IN 5 DAYS Complete 08/05/17 13:05 Blood Peripheral Anaerobic Blood Culture - Final QNS - SEE AEROBE REPORT Complete Assessment and Plan Assessment: (1) Wound infection Status: Acute Plan POD#5 s/p L AKA Looks great Pain controlled Incision intact Plan Pt clear for d/c to Rehab from a vascular standpoint Arranged Out Pt f/u (1M) L AKA Incision- Open to air and may use ENRIQUE wrap for comfort Nohemi VELASQUEZ [facility] [employer] [phone] Nohemi Garcia Aug 12, 2017 09:39
--- NOTE | 2017-08-12 11:06 | HHI.PR ---
Subjective Remarks Pt frustrated of being here. complains about the bed which makes her uncomfortable. doesn't need any pain meds, denies any nausea or vomiting. Objective Vitals Vital Signs Date Time Temp Pulse Resp B/P (MAP) Pulse Ox O2 Delivery O2 Flow Rate FiO2 08/12/17 10:23 69 175/80 (111) 08/12/17 08:04 63 08/12/17 08:00 97.6 63 20 180/77 (111) 96 08/12/17 04:00 97.3 60 16 165/74 (104) 93 08/12/17 00:00 98.4 67 18 149/79 (102) 93 08/11/17 22:41 Room Air 08/11/17 20:00 Room Air 08/11/17 20:00 97.5 69 18 175/79 (111) 93 08/11/17 19:59 68 08/11/17 16:00 98.7 68 18 190/83 (118) 95 08/11/17 12:00 97.3 63 18 167/73 (104) 97 I/O 08/11/17 08/11/17 08/11/17 08/12/17 08/12/17 08/12/17 07:00 15:00 23:00 07:00 15:00 23:00 Intake Total 1512 ml 1480 ml 1195 ml Output Total 525 ml Balance 987 ml 1480 ml 1195 ml Intake Oral 480 ml 480 ml IV Total 1032 ml 1000 ml 1195 ml Output Urine Total 525 ml # Voids 3 1 # Bowel Movements 1 1 Result Diagram: 08/11/17 0632 08/11/17 0732 Imaging Last Impressions Head CT 08/03/171947 Signed Impressions: Service Date/Time: Thursday, August 03, 2017 20:00 - CONCLUSION: 1. Right frontal scalp swelling. No acute intracranial abnormality. Remote lacunar infarct on the right. Manuel Carmichael MD Chest X-Ray 08/03/171947 Signed Impressions: Service Date/Time: Thursday, August 03, 2017 21:11 - CONCLUSION: 1. Left PICC line superior vena cava. Minimal subsegmental basilar opacity most characteristic of atelectasis. Manuel Carmichael MD Objective Remarks GENERAL: Well-developed well-nourished. In no acute distress. HEENT: Normocephalic. Pupils equal and round. Mucous membranes pink and moist. CARDIOVASCULAR: Regular rate and rhythm. No murmur appreciated. RESPIRATORY: No accessory muscle use. Clear to auscultation bilaterally in anterior chairez. GASTROINTESTINAL: Abdomen soft, non-tender, nondistended. Bowel sounds x4. MUSCULOSKELETAL: Left lower extremity with Deonte wrap status post AKA. NEUROLOGICAL: Awake and alert. No focal neurological deficits. Moves upper and lower extremities spontaneously. Normal speech. Procedures s/p AKA on 08/07 A/P Problem List: (1) Encephalopathy ICD Code: G93.40 - Encephalopathy, unspecified Status: Acute (2) Wound infection ICD Code: T14.8XXA - Other injury of unspecified body region, initial encounter ; L08.9 - Local infection of the skin and subcutaneous tissue, unspecified Status: Acute (3) SAQIB (acute kidney injury) ICD Code: N17.9 - Acute kidney failure, unspecified Status: Acute (4) Anemia ICD Code: D64.9 - Anemia, unspecified (5) DM (diabetes mellitus) ICD Code: E11.9 - Type 2 diabetes mellitus without complications Status: Chronic Assessment and Plan 62-year-old female with a PMH of HTN, Hyperlipidemia, Chronic Back Pain, CAD and DM who was sent to the ER from SNF secondary to AMS and lateral lower extremity wounds. Acute Metabolic Encephalopathy - Resolved: - CT Head w/ no acute findings, remote lacunar infarct. - Blood Cultures positive, see below. - Psychiatry consulted for further evaluation. Recommends to continue Zoloft 100 mg, BuSpar 10 mg daily she was on this medication at home. Left Foot Diabetic Ulcer with Osteomyelitis: - previously admitted to [facility], s/p debridement and wound vac, sent to [facility] with PICC on IV Vanco. Presented to [facility] with worsening wound drainage/ odor. - CXR w/ PICC in good position. Previously treated with vancomycin/Zosyn. PICC DC'd per infectious disease who followed the patient during this hospitalization. See antibiotics as below - s/p AKA on 08/07 by vascular surgery. Pt was cleared by vascular sx for discharge. Suspected Bacteremia: - 08/03 1/2 cx positive for Prevotella, repeat BCx on 08/05 NGx4 days - s/p Vanc/Zosyn - ID consulted, recommend Flagyl x 10 days (end date 08/19/17) SAQIB: Creatinine 1.92, previously 0.75 on 08/09/12, no recent labs for comparison. - Likely secondary to poor oral intake. - Cr trending down, down to 1.23, monitor closely as an outpatient. Normocytic Anemia: Likely from infection. Hemoglobin has been stable around 7.8. DM: Sliding scale with Accu-Cheks. script for insulin given. Diabetic diet. HTN: valsartan and spironolactone held due to SAQIB. increased amlodipine to 10mg po daily. continue BB. added hydralazine 25mg po BID. Discharge Planning ok to discharge if SBP<160. 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
[2017-08-12] MEDS ORDERED: HYDR-3799 PO (11:07)
[2017-08-12] MEDS ORDERED: HYDROCHLOROTHIAZIDE 25 MG TAB PO SCH (12:00)
[2017-08-12] MEDS ORDERED: hydrALAZINE HCL 25 MG TAB PO SCH (13:00)
== END 2017-08-12 16:05 | DRG 853 ==
LOC: NEPC 19:35 → NEDA 22:34 → NEPGCP 23:48 → OBSVTOIN 08-04 10:44 → NEDA 08-06 13:27 → NEDH 08-06 16:06 → NEPGCP 08-06 16:08 → N04A 08-06 18:27
PROVIDERS: ADMIT Hospitalist; ATTEND Hospitalist
PROC: 0Y6D0Z3 Detachment at Left Upper Leg, Low, Open Approach (ICD-10-PCS; principal; 2017-08-07 15:00)
DX: A41.02 Sepsis due to Methicillin resistant Staphylococcus aureus (principal); G93.41 Metabolic encephalopathy; E87.2 Acidosis; N17.9 Acute kidney failure, unspecified; L03.115 Cellulitis of right lower limb; E11.52 Type 2 diabetes mellitus with diabetic peripheral angiopathy with gangrene; M86.172 Other acute osteomyelitis, left ankle and foot; L97.429 Non-pressure chronic ulcer of left heel and midfoot with unspecified severity; J98.11 Atelectasis; L03.116 Cellulitis of left lower limb; N39.0 Urinary tract infection, site not specified; Z68.41 Body mass index [BMI] 40.0-44.9, adult; E11.22 Type 2 diabetes mellitus with diabetic chronic kidney disease; E11.42 Type 2 diabetes mellitus with diabetic polyneuropathy; E11.65 Type 2 diabetes mellitus with hyperglycemia; D64.9 Anemia, unspecified; E11.69 Type 2 diabetes mellitus with other specified complication; I12.9 Hypertensive chronic kidney disease with stage 1 through stage 4 chronic kidney disease, or unspecified chronic kidney disease; N18.2 Chronic kidney disease, stage 2 (mild); E87.5 Hyperkalemia; M79.7 Fibromyalgia; I25.10 Atherosclerotic heart disease of native coronary artery without angina pectoris; E78.5 Hyperlipidemia, unspecified; E11.610 Type 2 diabetes mellitus with diabetic neuropathic arthropathy; E11.621 Type 2 diabetes mellitus with foot ulcer; E66.9 Obesity, unspecified; G89.29 Other chronic pain; M54.5 Low back pain; F32.9 Major depressive disorder, single episode, unspecified; Z66 Do not resuscitate; Z79.4 Long term (current) use of insulin; Z86.73 Personal history of transient ischemic attack (TIA), and cerebral infarction without residual deficits; Z88.1 Allergy status to other antibiotic agents; Z88.2 Allergy status to sulfonamides; Z95.1 Presence of aortocoronary bypass graft; Z99.3 Dependence on wheelchair
CPT/HCPCS: 70450; 71010; 76937; 80048; 80053; 80202; 81001; 82140; 82550; 82565; 82948; 83605; 83690; 83735; 84132; 84155; 84484; 85007; 85025; 85027; 85610; 85730; 86140; 87040; 87076; 87185; 87205; 88307; 88311; 93005; 93306; 96360; G0378; J0696; J1170; J1644; J1815; J2270; J2405; J2543; J3370; J7030; J7050